=== PATIENT | male | born 1945 | race Hispanic/Latino ===

== ENCOUNTER 2017-12-06 12:09 | Inpatient (IN) | payer MEDICARE ==
[2017-12-06 12:29] VITALS: BMI 22.8
[2017-12-06] MEDS ORDERED: Vancomycin 1gm in NS 250ml 1 GM/250 ML BAG IVPB STA (12:34)
[2017-12-06] MEDS ORDERED: Sodium Chloride 0.9% 500 ML IV STA ×2 (12:34→13:49)
[2017-12-06] MEDS: Piperacillin/Tazobact 3.375 gm 100 ML IVPB STA ×2 (13:00→13:15)
[2017-12-06 13:21] LABS: BASO # 0.03 K/mm3 (0.0-2.0); BASO % 0.3 % (0.0-3.0); GRAN # 6.71 (1.4-6.5); GRAN % 65.9 % (50.0-68.0); LYMPH % 19.3 % (22.0-35.0); MEAN CELL VOLUME 88.9 fl (80.0-105.0); MEAN CORPUSCULAR HEMOGLOBIN 30.7 pg (25.0-35.0); MEAN CORPUSCULAR HGB CONC 34.5 g/dl (31.0-37.0); MEAN PLATELET VOLUME 9.5 fl (7.0-11.0); MONO # 1.5 (0.1-0.6); MONO % 14.5 % (1.0-6.0); RBC 4.24 10^6/uL (3.5-6.1); RED CELL DISTRIBUTION WIDTH 12.3 % (11.5-14.5); WHITE BLOOD COUNT 10.2 10^3/ul (4.5-11.0)
[2017-12-06 13:23] LABS: VENOUS BLOOD GAS BASE EXCESS -4.8 mmol/L (0.0-2.0); VENOUS BLOOD GAS PO2 41 mm/Hg (30-55)
--- NOTE | 2017-12-06 13:28 | ED PDOC ---
Arrival/HPI - General Chief Complaint: Lower Extremity Problem/Injury Time Seen by Provider: 12/06/17 12:33 Historian: Patient - History of Present Illness Narrative History of Present Illness (Text): 12/06/17 12:33 72 year old male, with past medical history of diabetes and has not seen a doctor in 15 years, presents to the Emergency department complaining of pain, swelling and erythema to the right 5th toe extending into the right foot since 3 days. Patient informs getting a pedicure done on Monday prior to onset on Monday. Patient informs visiting a hris administrator today for the mentioned symptoms, who referred patient to the Emergency department for evaluation and admission after having an X-ray of the foot performed. Patient denies any other somatic complaints. Patient denies any fever, chills, nausea, vomiting, diarrhea, abdominal pain, chest pain, shortness of breath, trauma or any other complaints. Patient denies regular monitoring of his blood sugar. Patient presents to the Emergency department for medical evaluation. Time/Duration: < week (3 days (monday)) Symptom Onset: Gradual Symptom Course: Unchanged Quality: Aching Activities at Onset: Light Context: Other (s/p pedicure) Past Medical History - Provider Review Nursing Documentation Reviewed: Yes - Infectious Disease Hx of Infectious Diseases: None - Endocrine/Metabolic Hx Diabetes Mellitus Type 2: Yes - Psychiatric Hx Substance Use: No - Anesthesia Hx Anesthesia: No Family/Social History - Physician Review Nursing Documentation Reviewed: Yes Family/Social History: No Known Family HX Smoking Status: Unknown If Ever Smoked Hx Alcohol Use: No Hx Substance Use: No Allergies/Home Meds Allergies/Adverse Reactions: Allergies No Known Allergies Allergy (Verified 12/06/17 12:29) Home Medications: Home Meds Medication Instructions Recorded Confirmed No Known Home Med 12/06/17 12/06/17 Review of Systems - Physician Review All systems were reviewed & negative as marked: Yes - Review of Systems Constitutional: Normal. absent: Fevers Eyes: Normal ENT: Normal Respiratory: Normal. absent: SOB Cardiovascular: Normal. absent: Chest Pain Gastrointestinal: Normal. absent: Abdominal Pain, Diarrhea, Nausea, Vomiting Genitourinary Male: Normal Musculoskeletal: Other (swelling and pain to right 5th toe extending into the right foot) Skin: Other (erythema to the right 5th toe extending to right 5th foot) Neurological: Normal Endocrine: Normal Hemo/Lymphatic: Normal Psychiatric: Normal Physical Exam Vital Signs Reviewed: Yes Vital Signs Temp Pulse Resp BP Pulse Ox 12/06/17 15:25 98 F 92 H 18 140/77 99 12/06/17 12:31 97.9 F 96 H 18 147/83 96 Temperature: Afebrile Blood Pressure: Normal Pulse: Tachycardic Respiratory Rate: Normal Appearance: Positive for: Well-Appearing, Non-Toxic, Comfortable Pain Distress: None Mental Status: Positive for: Alert and Oriented X 3 - Systems Exam Head: Present: Atraumatic, Normocephalic Conjunctiva: Present: Normal Mouth: Present: Moist Mucous Membranes Respiratory/Chest: Present: Clear to Auscultation, Good Air Exchange. No: Respiratory Distress, Accessory Muscle Use Cardiovascular: Present: Regular Rate and Rhythm, Normal S1, S2. No: Murmurs Abdomen: Present: Normal Bowel Sounds. No: Tenderness, Distention, Peritoneal Signs Lower Extremity: Present: NORMAL PULSES, Tenderness, Swelling, Erythema, Other ( blister noted to the distal plantar aspect of the right 5th toe; erythema and swelling surrounding the entire 5th toe; extends to the dorsal aspect of the foot with streaking erythema up the anterior lower leg). No: CALF TENDERNESS Neurological: Present: GCS=15, Speech Normal Skin: Present: Warm, Dry, Normal Color Psychiatric: Present: Alert, Oriented x 3 Medical Decision Making ED Course and Treatment: 12/06/17 12:33 72 year old diabetic male presents to the Emergency department for pain, swelling and erythema to the right 5th toe extending into the right foot. Plan: -- VBG -- Labs -- IV Fluids -- Blood Culture -- Urine Culture -- Urinalysis -- IV Abx -- admit Progress Notes: pt with hx of DM with fs; 337 pt had xray of foot at dr. Lizz strong office today. lactate; 1.5 cbc; wbc; 10.2 cmp; glucose 363 pt started on vancomycin and zosyn IV pt given 5units regular insulin sq pt given 1L NS cxr; wnl case discussed with podiatry resident dr. GROSSMAN; pt was seen and evaluated at bedside case discussed with dr. patel; accepts admission for toe infection, diabetes, r/ o osteomyelitis. all aspects of this case were discussed the attending of record. Impression: cellulitis, toe, DM admit to med/surg - Lab Interpretations Lab Results: 12/06/17 13:00 12/06/17 13:00 Lab Results 12/06/17 13:05: POC Glucose (mg/dL) 337 H 12/06/17 13:00: WBC 10.2, RBC 4.24, Hgb 13.0 L, Hct 37.7 L, MCV 88.9, MCH 30.7, MCHC 34.5, RDW 12.3, Plt Count 175, MPV 9.5, Gran % 65.9, Lymph % (Auto) 19.3 L , [place] % (Auto) 14.5 H, Eos % (Auto) 0.0 L, Baso % (Auto) 0.3, Gran # 6.71 H, Lymph # (Auto) 2.0, [place] # (Auto) 1.5 H, Eos # (Auto) 0.0, Baso # (Auto) 0.03 12/06/17 13:00: Sodium 135, Chloride 94 L, Potassium 4.7, Carbon Dioxide 19 L, Anion Gap 27 H, BUN 19, Creatinine 0.8, Est GFR ( Amer) > 60, Est GFR ( Non-Af Amer) > 60, Random Glucose 363 H*, Calcium 9.1, Total Bilirubin 0.6, AST 48, ALT 76 H, Alkaline Phosphatase 107, Total Protein 7.2, Albumin 4.2, Globulin 3.0, Albumin/Globulin Ratio 1.4 12/06/17 13:00: pO2 41, VBG pH 7.30 L, VBG pCO2 44.0, VBG HCO3 21.6, VBG Total CO2 23.0, VBG O2 Sat (Calc) 76.1 H, VBG Base Excess -4.8 L, VBG Potassium 4.8, Sodium 130.0 L, Chloride 96.0 L, Glucose 389 H, Lactate 1.5, FiO2 21.0, Venous Blood Potassium 4.8 - RAD Interpretation Radiology Orders: 12/06/17 12:34 CHEST PORTABLE [RAD] Stat - Medication Orders Current Medication Orders: Acetaminophen (Tylenol 325mg Tab) 650 mg PO Q6 PRN PRN Reason: Pain, moderate (4-7) Famotidine (Pepcid) 20 mg PO BID MURPHY Heparin Sodium (Porcine) (Heparin) 5,000 units SC Q8H MURPHY PRN Reason: Protocol Last Admin: 12/06/17 15:44 Dose: 5,000 units Subcutaneous Administrations Document 12/06/17 15:44 SZA (Rec: 12/06/17 15:45 SZA [id number]) Injection Site MAR Injection Site Left Arm Charges for Administration # of Subcutaneous Administrations 1 Sodium Chloride (Sodium Chloride 0.9%) 1,000 mls @ 100 mls/hr IV .Q10H MURPHY Last Admin: 12/06/17 15:49 Dose: 100 mls/hr eMAR Start Stop Document 12/06/17 15:49 SZA (Rec: 12/06/17 15:50 WILLIAM [id number]) Intravenous Solution Start Date 12/06/17 Start Time 15:20 Insulin Human Regular (Humulin R Med) 0 units SC ACHS MURPHY PRN Reason: Protocol Lorazepam (Ativan) 1 mg IVP Q4H PRN; Protocol PRN Reason: Symptoms of alcohol withdrawl Discontinued Medications Vancomycin HCl (Vancomycin 1gm) 1 gm in 250 mls @ 167 mls/hr IVPB STAT STA PRN Reason: Protocol Stop: 12/06/17 14:03 Last Admin: 12/06/17 13:39 Dose: 167 mls/hr eMAR Start Stop Document 12/06/17 13:39 SZA (Rec: 12/06/17 13:40 SZA [id number]) Intravenous Solution Start Date 12/06/17 Start Time 13:40 End Date 12/06/17 End time 15:10 Total Infusion Time 90 Piperacillin Sod/Tazobactam Sod (Zosyn 3.375 In Ns 100ml) 100 mls @ 200 mls/hr IVPB STAT STA PRN Reason: Protocol Stop: 12/06/17 13:03 Last Admin: 12/06/17 13:00 Dose: 200 mls/hr eMAR Start Stop Document 12/06/17 13:00 SZA (Rec: 12/06/17 13:16 SZA [id number]) Intravenous Solution Start Date 12/06/17 Start Time 13:00 End Date 12/06/17 Sodium Chloride (Sodium Chloride 0.9%) 500 mls @ 999 mls/hr IV .Q31M STA Stop: 12/06/17 13:04 Last Admin: 12/06/17 13:00 Dose: 999 mls/hr eMAR Start Stop Document 12/06/17 13:00 SZA (Rec: 12/06/17 13:33 SZA [id number]) Intravenous Solution Start Date 12/06/17 Start Time 13:00 End Date 12/06/17 End time 13:30 Total Infusion Time 30 Sodium Chloride (Sodium Chloride 0.9%) 500 mls @ 999 mls/hr IV .Q31M STA Stop: 12/06/17 14:19 Last Admin: 12/06/17 14:20 Dose: 999 mls/hr eMAR Start Stop Document 12/06/17 14:20 SZA (Rec: 12/06/17 14:41 SZA [id number]) Intravenous Solution Start Date 12/06/17 Start Time 14:20 End Date 12/06/17 End time 14:50 Total Infusion Time 30 Insulin Human Regular (Humulin R) 5 units SC STAT STA Stop: 12/06/17 13:57 Last Admin: 12/06/17 14:41 Dose: 5 units Subcutaneous Administrations Document 12/06/17 14:41 SZA (Rec: 12/06/17 14:41 SZA [id number]) Injection Site MAR Injection Site Left Arm Charges for Administration # of Subcutaneous Administrations 5 - Scribe Statement The provider has reviewed the documentation as recorded by the Scribe George Morales. All medical record entries made by the Scribe were at my direction and personally dictated by me. I have reviewed the chart and agree that the record accurately reflects my personal performance of the history, physical exam, medical decision making, and the department course for this patient. I have also personally directed, reviewed, and agree with the discharge instructions and disposition. Disposition/Present on Arrival - Present on Arrival Any Indicators Present on Arrival: No History of DVT/PE: No History of Uncontrolled Diabetes: No Urinary Catheter: No History of Decub. Ulcer: No History Surgical Site Infection Following: None - Disposition Have Diagnosis and Disposition been Completed?: Yes Diagnosis: Cellulitis, toe Disposition: HOSPITALIZED Disposition Time: 14:00 Patient Plan: Admission Patient Problems: Current Active Problems Problem Status Onset Cellulitis, toe Acute Condition: FAIR
[2017-12-06 13:35] LABS: ALB/GLOB RATIO 1.4 (1.1-1.8); ALBUMIN 4.2 g/dL (3.0-4.8); ALT/SGPT 76 U/L (7-56); AST/SGOT 48 U/L (17-59); BLOOD UREA NITROGEN 19 mg/dL (7-21); CALCIUM 9.1 mg/dL (8.4-10.5); GFR AFRICAN-AMERICAN > 60; GFR NON-AFRICAN AMERICAN > 60
--- NOTE | 2017-12-06 13:44 | RAD ---
HISTORY: foot infection COMPARISON: No prior. FINDINGS: LUNGS: No active pulmonary disease. PLEURA: No significant pleural effusion identified, no pneumothorax apparent. CARDIOVASCULAR: Normal. OSSEOUS STRUCTURES: No significant abnormalities. VISUALIZED UPPER ABDOMEN: Normal. OTHER FINDINGS: None. IMPRESSION: No active disease.
[2017-12-06] MEDS ORDERED: Insulin Regular 1 UNITS/0.01 ML ML SC STA (13:56)
--- NOTE | 2017-12-06 15:06 | CP.PCM.CON ---
History of Present Illness - History of Present Illness History of Present Illness: Podiatry Consult note- Dr. Crow 72 y.o male with PMHx of DM and psoriasis presents to the ED for right foot infection. Patient reports going to his java security engineer Dr. Romero today where he was told he had a foot infection and was sent to the ED. Patient reports that X- rays were taken in the office and showed no osteomyelitis. Patient reports that he went to [facility] to get a pedicure 5 days ago. 2 days ago he started noticing his foot getting more red and swollen with redness going up the leg. Patient reports he has mild pain, helped with pain medication given. Pain was worse prior to going to the ED. Patient denies nausea, fever, shortness of breath, chest pains, or chills. PMH: DM, psoriasis PSH: denies SH: former smoker- 20 years 1ppd, quit 25 years ago, reports drinking EtOH ~2-3 beers daily, denies illicit drug use ALL: NKDA MEDS: see MAR list Past Patient History - Infectious Disease Hx of Infectious Diseases: None - Past Social History Smoking Status: Unknown If Ever Smoked - ENDOCRINE/METABOLIC Hx Diabetes Mellitus Type 2: Yes - PSYCHIATRIC Hx Substance Use: No - SURGICAL HISTORY Hx Surgeries: No - ANESTHESIA Hx Anesthesia: No Meds Allergies/Adverse Reactions: Allergies Allergy/AdvReac Type Severity Reaction Status Date / Time No Known Allergies Allergy Verified 12/06/17 12:29 Physical Exam - Constitutional Appears: Well, Non-toxic, No Acute Distress - Extremities Exam Extremities exam: Negative for: calf tenderness Additional comments: VASC: DP and PT 1/4 bilaterally, CFT < 3 seconds x10 digits, temperature gradient WNL, edema noted to the right 5th digit ORTHO: pain with palpation to the 5th digit NEURO: gross intact and protective sensation intact DERM: right 5th digit blister noted to the plantar aspect with underlying dried hematoma noted, with mild fluctanace noted. Abrasion noted surrounding cuticles and skin surrounding nail plate, erythema >2cm and streaking noted up to dorsum of foot up to the anterior leg- marked with marking pen to track progression. No appreciable ulcerated noted to the digit, portal possibility closed up drained blister about 1 cc of sangious purulence Results - Vital Signs Recent Vital Signs: Last Vital Signs Temp 97.9 F 12/06/17 12:31 Pulse 96 H 12/06/17 12:31 Resp 18 12/06/17 12:31 BP 147/83 12/06/17 12:31 Pulse Ox 96 12/06/17 12:31 - Labs Result Diagrams: 12/06/17 13:00 12/06/17 13:00 Labs: Laboratory Results - last 24 hr 12/06/17 12/06/17 12/06/17 13:00 13:00 13:00 WBC 10.2 RBC 4.24 Hgb 13.0 L Hct 37.7 L MCV 88.9 MCH 30.7 MCHC 34.5 RDW 12.3 Plt Count 175 MPV 9.5 Gran % 65.9 Lymph % (Auto) 19.3 L [place] % (Auto) 14.5 H Eos % (Auto) 0.0 L Baso % (Auto) 0.3 Gran # 6.71 H Lymph # (Auto) 2.0 [place] # (Auto) 1.5 H Eos # (Auto) 0.0 Baso # (Auto) 0.03 pO2 41 VBG pH 7.30 L VBG pCO2 44.0 VBG HCO3 21.6 VBG Total CO2 23.0 VBG O2 Sat (Calc) 76.1 H VBG Base Excess -4.8 L VBG Potassium 4.8 Sodium 130.0 L 135 Chloride 96.0 L 94 L Glucose 389 H Lactate 1.5 FiO2 21.0 Potassium 4.7 Carbon Dioxide 19 L Anion Gap 27 H BUN 19 Creatinine 0.8 Est GFR ( Amer) > 60 Est GFR (Non-Af Amer) > 60 POC Glucose (mg/dL) Random Glucose 363 H* Calcium 9.1 Total Bilirubin 0.6 AST 48 ALT 76 H Alkaline Phosphatase 107 Total Protein 7.2 Albumin 4.2 Globulin 3.0 Albumin/Globulin Ratio 1.4 Venous Blood Potassium 4.8 12/06/17 13:05 WBC RBC Hgb Hct MCV MCH MCHC RDW Plt Count MPV Gran % Lymph % (Auto) [place] % (Auto) Eos % (Auto) Baso % (Auto) Gran # Lymph # (Auto) [place] # (Auto) Eos # (Auto) Baso # (Auto) pO2 VBG pH VBG pCO2 VBG HCO3 VBG Total CO2 VBG O2 Sat (Calc) VBG Base Excess VBG Potassium Sodium Chloride Glucose Lactate FiO2 Potassium Carbon Dioxide Anion Gap BUN Creatinine Est GFR ( Amer) Est GFR (Non-Af Amer) POC Glucose (mg/dL) 337 H Random Glucose Calcium Total Bilirubin AST ALT Alkaline Phosphatase Total Protein Albumin Globulin Albumin/Globulin Ratio Venous Blood Potassium Assessment & Plan - Assessment and Plan (Free Text) Assessment: 72 y.o male with PMHx of DM and psoriasis with right foot 5th digit blister with cellulitis Plan: Patient examined and evaluated Discussed plan in detail with attending Dr. Crow Charts, labs reviewed ,absent leukocytosis X-rays ordered of right foot - no OM, no gas Right 5th digit prep with betadine, blister drained with 18 gauge needle without incident ~1 cc of sangious purulence drainage expressed Patient tolerated the procedure well without incident Wound culture taken of right foot Dressed with betadine and DSD Continue with abx Ordered ABIs/PVRs for baseline Will continue to follow patient while on floors Thank you for allowing us to participate in patient's care
--- NOTE | 2017-12-06 15:29 | CP.PCM.HP ---
<Camille Nassar - Last Filed: 12/06/17 15:31> History of Present Illness - History of Present Illness History of Present Illness: IM H & P for Dr. Carolyn Nassar, PGY-1 Pt S & E at bedside 1505 73M w/PMH sig for DM, psoriasis admitted for Right foot pain/swelling/erythema x 3 days. Pt reports he got a pedicure 5 days prior to evaluation, woke up 3 days ago with sudden pain/swelling/erythema. Pain is intermittent, aggravated by pressure/walking/touch, severe, non radiating. Pt went to PMD who got outpatient work up for osteomyelitis- x-rays are self-reported to be negative. Admits to numbness/tingling of right foot. Denies N & V, F & C, CP, SOB, changes to bowel or bladder habits, other complaints. PMH: DM, psoriasis PSH: Denies All: NKDA SH: Admits to 2-3 beers daily x 60yrs, admits to hx of tobacco use, quit 25 yrs ago, 1ppd x 20 yrs, denies illicit drug use Outpt pods: [place] Present on Admission - Present on Admission Any Indicators Present on Admission: Yes History of DVT/PE: No History of Uncontrolled Diabetes: Yes Urinary Catheter: No Decubitus Ulcer Present: No Review of Systems - Review of Systems All systems: reviewed and no additional remarkable complaints except - Constitutional Constitutional: absent: Chills, Fever - EENT Eyes: absent: Blurred Vision, Change in Vision Ears: absent: Dizziness Nose/Mouth/Throat: absent: Sore Throat - Cardiovascular Cardiovascular: absent: Chest Pain, Leg Edema, Palpitations - Respiratory Respiratory: absent: Cough - Gastrointestinal Gastrointestinal: absent: Abdominal Pain, Constipation, Diarrhea, Nausea, Vomiting - Genitourinary Genitourinary: absent: Change in Urinary Stream, Dysuria - Musculoskeletal Musculoskeletal: Numbness (right foot), Tingling (right foot) - Integumentary Integumentary: Skin Pain (right foot), Wounds (right foot) - Neurological Neurological: Weakness (right foot) - Psychiatric Psychiatric: absent: Change in Appetite Past Patient History - Infectious Disease Hx of Infectious Diseases: None - Past Social History Smoking Status: Unknown If Ever Smoked - ENDOCRINE/METABOLIC Hx Diabetes Mellitus Type 2: Yes - PSYCHIATRIC Hx Substance Use: No - SURGICAL HISTORY Hx Surgeries: No - ANESTHESIA Hx Anesthesia: No Meds Allergies/Adverse Reactions: Allergies Allergy/AdvReac Type Severity Reaction Status Date / Time No Known Allergies Allergy Verified 12/06/17 12:29 Physical Exam - Constitutional Appears: Non-toxic, No Acute Distress - Head Exam Head Exam: ATRAUMATIC, NORMAL INSPECTION, NORMOCEPHALIC - Eye Exam Eye Exam: EOMI, Normal appearance - ENT Exam ENT Exam: Mucous Membranes Moist, Normal Exam - Neck Exam Neck exam: Positive for: Full Rom, Normal Inspection - Respiratory Exam Respiratory Exam: Clear to Auscultation Bilateral, NORMAL BREATHING PATTERN - Cardiovascular Exam Cardiovascular Exam: REGULAR RHYTHM, +S1, +S2 - GI/Abdominal Exam GI & Abdominal Exam: Normal Bowel Sounds, Soft. absent: Tenderness - Extremities Exam Extremities exam: Positive for: tenderness. Negative for: normal inspection Additional comments: right foot with diffuse erythema streaking up the anterior aspect of the leg, 5th digit of right foot with swelling, erythema, fluctuance on plantar aspect of toe, small wound noted at distal aspect of toe next to nail bed - Neurological Exam Neurological exam: Alert, CN II-XII Intact, Oriented x3 - Psychiatric Exam Psychiatric exam: Normal Affect, Normal Mood - Skin Skin Exam: Dry, Erythema (right foot), Intact Additional comments: please see extremity exam for right foot findings Results - Vital Signs Recent Vital Signs: Last Vital Signs Temp 97.9 F 12/06/17 12:31 Pulse 96 H 12/06/17 12:31 Resp 18 12/06/17 12:31 BP 147/83 12/06/17 12:31 Pulse Ox 96 12/06/17 12:31 - Labs Result Diagrams: 12/06/17 13:00 12/06/17 13:00 Assessment & Plan - Assessment and Plan (Free Text) Assessment: 72M w/PMH sig for DM, psoriasis admitted for swelling/possible abscess of 5th digit on right foot & cellulitis of right foot Plan: Right 5th digit pain, swelling/possible abscess of 5th digit of right foot & cellulitis of right foot Monitor erythema Vanc Zosyn Tylenol PRN NS@100 FU blood cx FU urine cx ID consulted Podiatry consulted DM Accuchecks ISS Diabetic diet Fu A1c Monitor ETOH abuse FU Etoh level FU UDS Ativan PRN CIWA protocol Seizure precautions Aspiration precautions GI/DVT ppx Pepcid Heparin Ambulate OOBTC Dispo Admit to med-surg VS Q6H DW attending Maday, PGY-1 - Date & Time Date: 12/06/17 Time: 15:30 Decision To Admit - Pt Status Changed To: Hospital Disposition Of: Inpatient Admission - Admit Certification Admit to Inpatient:: After my assessment, the patient will require hospitalization for at least two midnights. This is because of the severity of symptoms shown, intensity of services needed, and/or the medical risk in this patient being treated as an outpatient. - . Bed Request Type: Med/Surg Admitting Physician: Darron Hill <Darron Hill - Last Filed: 12/06/17 15:50> Results - Vital Signs Recent Vital Signs: Last Vital Signs Temp 98 F 12/06/17 15:25 Pulse 92 H 12/06/17 15:25 Resp 18 12/06/17 15:25 BP 140/77 12/06/17 15:25 Pulse Ox 99 12/06/17 15:25 - Labs Result Diagrams: 12/06/17 13:00 12/06/17 13:00 Attending/Attestation - Attestation I have personally seen and examined this patient.: Yes I have fully participated in the care of the patient.: Yes I have reviewed all pertinent clinical information: Yes Notes (Text): 12/06/17 15:44 72 year old male with past medical history of diabetes who presents with right foot cellulitis and possible 5th digit abscess. Continue with iv antibiotics. ID and podiatry consults are requested. Will start on insulin ss and obtain A1c for diabetes. He admits to medication noncompliance. He admits to drinking few beers daily. Will start ativan prn in case of withdrawal symptoms which he currently is not exhibiting. Darron Hill MD Hospitalist.
[2017-12-06] MEDS: Sodium Chloride 0.9% 1,000 ML IV SCH (15:49)
[2017-12-06 16:14] LABS: PH,URINE 5.5 (4.7-8.0); URINE BILIRUBIN NEGATIVE (NEGATIVE); URINE BLOOD NEGATIVE (NEGATIVE); URINE GLUCOSE (UA) >=1000 mg/dL (NEGATIVE); URINE LEUKOCYTE ESTERASE NEGATIVE Leu/uL (NEGATIVE); URINE PROTEIN NEGATIVE mg/dL (<30 mg/dL); URINE UROBILINOGEN 0.2 E.U./dL (<1 E.U./dL)
[2017-12-06 16:19] LABS: BARBITURATES, UR NEGATIVE (NEGATIVE); BENZODIAZEPINES, UR NEGATIVE (NEGATIVE); OPIATES, UR NEGATIVE (NEGATIVE); PHENCYCLIDINE, UR NEGATIVE (NEGATIVE)
[2017-12-06 16:20] LABS: URINE APPEARANCE CLEAR (CLEAR); URINE COLOR YELLOW (YELLOW)
[2017-12-06] MEDS: Insulin Reg-MEDIUM-Coverage SC SCH ×2 (17:10→22:01)
--- NOTE | 2017-12-06 17:12 | RAD ---
PROCEDURE: Right Foot Radiographs. HISTORY: right foot infection COMPARISON: None. FINDINGS: BONES: Normal. No fracture. JOINTS: Normal. SOFT TISSUES: Normal. OTHER FINDINGS: None. IMPRESSION: Normal right foot radiographs.
[2017-12-06] MEDS ORDERED: Pneumococcal 23-Valent Vaccine IM ONE (17:45)
[2017-12-07 07:06] LABS: BASO # 0.04 K/mm3 (0.0-2.0); BASO % 0.6 % (0.0-3.0); EOS # 0.1 (0.0-0.7); EOS % 1.7 % (1.5-5.0); GRAN # 3.54 (1.4-6.5); GRAN % 50.3 % (50.0-68.0); HEMOGLOBIN 12.2 g/dL (14.0-18.0); LYMPH # 2.5 (1.2-3.4); MEAN CELL VOLUME 88.5 fl (80.0-105.0); MEAN CORPUSCULAR HEMOGLOBIN 29.8 pg (25.0-35.0); MEAN CORPUSCULAR HGB CONC 33.6 g/dl (31.0-37.0); MEAN PLATELET VOLUME 9.3 fl (7.0-11.0); MONO # 0.9 (0.1-0.6); MONO % 12.4 % (1.0-6.0); RBC 4.1 10^6/uL (3.5-6.1); RED CELL DISTRIBUTION WIDTH 12.4 % (11.5-14.5)
[2017-12-07 07:15] LABS: ALB/GLOB RATIO 1.1 (1.1-1.8); ALBUMIN 3.3 g/dL (3.0-4.8); ALT/SGPT 69 U/L (7-56); AST/SGOT 34 U/L (17-59); BLOOD UREA NITROGEN 13 mg/dL (7-21); CALCIUM 8.3 mg/dL (8.4-10.5); GFR AFRICAN-AMERICAN > 60; GFR NON-AFRICAN AMERICAN > 60
[2017-12-07] MEDS ORDERED: Vancomycin 1gm in NS 250ml 1 GM/250 ML BAG IVPB SCH (07:30)
[2017-12-07] MEDS: Insulin Reg-MEDIUM-Coverage SC SCH ×4 (08:59→22:42)
[2017-12-07] MEDS: Vancomycin 1gm in NS 250ml 1 GM/250 ML BAG IVPB SCH ×2 (10:14→21:34)
[2017-12-07] MEDS: Piperacillin/Tazobact 3.375 gm 100 ML IVPB SCH ×4 (11:04→23:33)
--- NOTE | 2017-12-07 11:46 | CP.PCM.PN ---
<Nathan Biggs - Last Filed: 12/07/17 12:36> Subjective - Date & Time of Evaluation Date of Evaluation: 12/07/17 Time of Evaluation: 07:00 - Subjective Subjective: PGY1 Medicine Note for Dr. Hill Patient seen and examined at bedside this morning. No acute events overnight. Patient reports that he is feeling much better and is no longer in any pain with his foot. Reports decreased swelling and erythema. Denies fevers, chills, nausea, vomiting, diarrhea, constipation, chest pain, shortness of breath, palpitations, abdominal pain, headaches, numbness or tingling. Objective - Vital Signs/Intake and Output Vital Signs (last 24 hours): Temp Pulse Resp BP Pulse Ox 98 F 78 20 155/93 H 95 12/07/17 06:00 12/07/17 06:00 12/07/17 06:00 12/07/17 06:00 12/07/17 06:00 Intake and Output: 12/07/17 12/07/17 06:59 18:59 Intake Total 120 Balance 120 - Medications Medications: Current Medications Acetaminophen (Tylenol 325mg Tab) 650 mg PO Q6 PRN PRN Reason: Pain, moderate (4-7) Famotidine (Pepcid) 20 mg PO BID [facility] Last Admin: 12/07/17 10:14 Dose: 20 mg Heparin Sodium (Porcine) (Heparin) 5,000 units SC Q8H [facility] PRN Reason: Protocol Last Admin: 12/07/17 10:13 Dose: 5,000 units Sodium Chloride (Sodium Chloride 0.9%) 1,000 mls @ 100 mls/hr IV .Q10H [facility] Last Admin: 12/06/17 15:49 Dose: 100 mls/hr Piperacillin Sod/Tazobactam Sod (Zosyn 3.375 In Ns 100ml) 100 mls @ 200 mls/hr IVPB Q6 [facility] PRN Reason: Protocol Stop: 12/07/17 18:29 Last Admin: 12/07/17 11:04 Dose: 200 mls/hr Vancomycin HCl (Vancomycin 1gm) 1 gm in 250 mls @ 167 mls/hr IVPB Q12H [facility] PRN Reason: Protocol Last Admin: 12/07/17 10:14 Dose: 167 mls/hr Insulin Detemir (Levemir) 5 unit SC BID [facility] Insulin Human Regular (Humulin R Med) 0 units SC ACHS [facility] PRN Reason: Protocol Last Admin: 12/07/17 08:59 Dose: 1 units Lisinopril (Zestril) 5 mg PO DAILY [facility] Lorazepam (Ativan) 1 mg IVP Q4H PRN; Protocol PRN Reason: Symptoms of alcohol withdrawl - Labs Labs: 12/07/17 06:20 12/07/17 06:20 - Constitutional Appears: Non-toxic, No Acute Distress - Head Exam Head Exam: ATRAUMATIC, NORMOCEPHALIC - Eye Exam Eye Exam: EOMI, Normal appearance - ENT Exam ENT Exam: Mucous Membranes Moist - Neck Exam Neck Exam: absent: Lymphadenopathy - Respiratory Exam Respiratory Exam: Clear to Ausculation Bilateral, NORMAL BREATHING PATTERN. absent: Accessory Muscle Use, Rales, Rhonchi, Wheezes, Respiratory Distress - Cardiovascular Exam Cardiovascular Exam: REGULAR RHYTHM, +S1, +S2 - GI/Abdominal Exam GI & Abdominal Exam: Soft, Normal Bowel Sounds. absent: Distended, Firm, Guarding, Rigid, Tenderness - Extremities Exam Extremities Exam: absent: Calf Tenderness, Tenderness Additional comments: Dressing in place over right foot, covering 5th digit. Erythema boarder markings of show decreased erythema, no longer any erythema on mcclendon. Right foot is swollen with erythma but patient denies tenderness. - Neurological Exam Neurological Exam: Alert, Awake, CN II-XII Intact, Oriented x3 - Psychiatric Exam Psychiatric exam: Normal Affect, Normal Mood - Skin Skin Exam: Dry, Erythema (right foot), Intact, Warm Additional comments: see extremity exam - right foot. Assessment and Plan - Assessment and Plan (Free Text) Assessment: 72 year old male with a past medical history of DM and psoriasis admitted for swelling/possible abscess of 5th digit on right foot & cellulitis of right foot Plan: Right Foot 5th digit blister with cellulitis Podiatry consulted, Dr. Crow - help appreciated ID consulted, Dr. Quijano - help appreciated s/p I&D on 12/06 - per podiatry note, ~1 cc of sangious purulence drainage expressed Erythema boarder improving. Blood Culture - f/u Wound Culture - f/u Urine Culture - f/u Dressings per Podiatry Vanco 1gm IVPB q12h Zosyn 3.375mg IVPB q6h Tylenol 650mg PO q6h prn NS @100mL/hr Diabetes Hgb A1c 12.6 Blood Sugars consistently 200-300 Started on Levemir 5units SC BID ISS - mod accuchecks Travel Guide referral Patient educated on diabetes and meaning of Hgb A1c/Blood Sugar levels. Had discussion with patient about wishes to start patient on long acting insulin. Patient is in agreement to start medication and continue medication when he is discharged home. Hypertension Started on Lisinopril 5mg PO daily Continue to monitor Alcohol Abuse Upon admission alc level <10 UDS negative Ativan 1mg IVP q4h prn CIWA protocol Seizure precautions Aspiration precautions Prophylactic Care Pepcid 20mg PO BID Heparin 5,000 units SC q8h Case discussed with Dr. Sergio Evans Dian PGY1 <Darron Hill - Last Filed: 12/07/17 12:47> Objective - Vital Signs/Intake and Output Vital Signs (last 24 hours): Temp Pulse Resp BP Pulse Ox 98 F 78 20 156/92 H 95 12/07/17 06:00 12/07/17 06:00 12/07/17 06:00 12/07/17 12:13 12/07/17 06:00 Intake and Output: 12/07/17 12/07/17 06:59 18:59 Intake Total 120 Balance 120 - Medications Medications: Current Medications Acetaminophen (Tylenol 325mg Tab) 650 mg PO Q6 PRN PRN Reason: Pain, moderate (4-7) Famotidine (Pepcid) 20 mg PO BID [facility] Last Admin: 12/07/17 10:14 Dose: 20 mg Heparin Sodium (Porcine) (Heparin) 5,000 units SC Q8H [facility] PRN Reason: Protocol Last Admin: 12/07/17 10:13 Dose: 5,000 units Sodium Chloride (Sodium Chloride 0.9%) 1,000 mls @ 100 mls/hr IV .Q10H [facility] Last Admin: 12/06/17 15:49 Dose: 100 mls/hr Piperacillin Sod/Tazobactam Sod (Zosyn 3.375 In Ns 100ml) 100 mls @ 200 mls/hr IVPB Q6 [facility] PRN Reason: Protocol Stop: 12/07/17 18:29 Last Admin: 12/07/17 11:04 Dose: 200 mls/hr Vancomycin HCl (Vancomycin 1gm) 1 gm in 250 mls @ 167 mls/hr IVPB Q12H [facility] PRN Reason: Protocol Last Admin: 12/07/17 10:14 Dose: 167 mls/hr Insulin Detemir (Levemir) 5 unit SC BID [facility] Insulin Human Regular (Humulin R Med) 0 units SC ACHS [facility] PRN Reason: Protocol Last Admin: 12/07/17 12:11 Dose: 3 units Lisinopril (Zestril) 5 mg PO DAILY [facility] Last Admin: 12/07/17 12:13 Dose: 5 mg Lorazepam (Ativan) 1 mg IVP Q4H PRN; Protocol PRN Reason: Symptoms of alcohol withdrawl - Labs Labs: 12/07/17 06:20 12/07/17 06:20 Attending/Attestation - Attestation I have personally seen and examined this patient.: Yes I have fully participated in the care of the patient.: Yes I have reviewed all pertinent clinical information, including history, physical exam and plan: Yes Notes (Text): 12/07/17 12:44 72 year old male with past medical history of diabetes who presents with right foot cellulitis and 5th digit abscess. He was seen by podiatry and is s/p I&D at bedside. Continue with antibiotics as per ID while awaiting wound culture. Xray was negative. LE doppler was done today with pending report. A1c in 12.6. He is currently on insulin ss and will be started on levemir. Patient is agreeable. He was counselled on lifestyle and diet modifications and medication compliance. Diabetic education referral is ordered. He is started on lisinopril for hypertension. He was counselled on alcohol abstinence. Darron Hill MD Hospitalist.
--- NOTE | 2017-12-07 13:18 | US ---
PROCEDURE: Lower extremity BORA exam HISTORY: Peripheral vascular disease with pain and ulceration. Diabetes. Previous smoker. PHYSICIAN(S): Charles Lehman MD. FINDINGS: The resting BORA's are normal: right, 1.48and left, 1.32. The brachial systolic pressures are symmetric. The high thigh pressures and waveforms are relatively normal. The calf PVR waveforms augment normally. No significant gradients are noted across the thighs. The ankle and metatarsal waveforms are relatively normal and symmetric. No significant pressure gradients are noted across the lower legs. IMPRESSION: 1. Relatively normal BORA and PVR examination at rest.
[2017-12-07] MEDS: Insulin Detemir 100 units/ml Vial (Levemir) SC SCH (17:10)
[2017-12-07] MEDS: Sodium Chloride 0.9% 1,000 ML IV SCH (17:18)
--- NOTE | 2017-12-07 19:14 | CP.PCM.PN ---
Subjective - Date & Time of Evaluation Date of Evaluation: 12/07/17 Time of Evaluation: 19:14 - Subjective Subjective: 72 y/o M with PMH of DM and psoriasis with right 5th toe necrotic ulceration with cellulitis. Patient relates improvement in pain. Denies any F/C/N/V/SOB/ CP. Objective - Vital Signs/Intake and Output Vital Signs (last 24 hours): Temp Pulse Resp BP Pulse Ox 97.5 F L 86 20 143/79 96 12/07/17 14:00 12/07/17 14:00 12/07/17 14:00 12/07/17 14:00 12/07/17 14:00 Intake and Output: 12/07/17 12/07/17 06:59 18:59 Intake Total 120 960 Balance 120 960 - Medications Medications: Current Medications Acetaminophen (Tylenol 325mg Tab) 650 mg PO Q6 PRN PRN Reason: Pain, moderate (4-7) Famotidine (Pepcid) 20 mg PO BID [facility] Last Admin: 12/07/17 17:12 Dose: 20 mg Heparin Sodium (Porcine) (Heparin) 5,000 units SC Q8H [facility] PRN Reason: Protocol Last Admin: 12/07/17 16:27 Dose: Not Given Sodium Chloride (Sodium Chloride 0.9%) 1,000 mls @ 100 mls/hr IV .Q10H [facility] Last Admin: 12/07/17 17:18 Dose: 100 mls/hr Vancomycin HCl (Vancomycin 1gm) 1 gm in 250 mls @ 167 mls/hr IVPB Q12H [facility] PRN Reason: Protocol Last Admin: 12/07/17 10:14 Dose: 167 mls/hr Piperacillin Sod/Tazobactam Sod (Zosyn 3.375 In Ns 100ml) 100 mls @ 200 mls/hr IVPB Q6 [facility] PRN Reason: Protocol Stop: 12/16/17 18:01 Insulin Detemir (Levemir) 5 unit SC BID [facility] Last Admin: 12/07/17 17:10 Dose: 5 unit Insulin Human Regular (Humulin R Med) 0 units SC ACHS [facility] PRN Reason: Protocol Last Admin: 12/07/17 17:11 Dose: 3 units Lisinopril (Zestril) 5 mg PO DAILY [facility] Last Admin: 05/24/18 12:13 Dose: 5 mg Lorazepam (Ativan) 1 mg IVP Q4H PRN; Protocol PRN Reason: Symptoms of alcohol withdrawl - Labs Labs: 12/07/17 06:20 12/07/17 06:20 - Constitutional Appears: No Acute Distress - Additional Findings Additional findings: Lower extremity exam: Palpable pedal pulses 2/4 DP/PT. right 5th toe distal plantar wound with fibronecrosis, no exposed bone, +edema, +malodor, erythema extending up to the ankle. +edema up to the ankle. AROM to all toes. tenderness upon palpation. Assessment and Plan - Assessment and Plan (Free Text) Assessment: Right 5th toe necrotic ulceration with cellulitis Uncontrolled DM Plan: Pt examined and evaluated. after obtaining consent, the necrotic wound was sharply debrided with iris scissors and pick ups down to subcutaneous tissue removing fibronecrotic tissue. wound measures approx 1cm in diameterx 0.3 in depth. wound was copiously irrigated with saline and dress with wet-to dry dressing. no pururlence expressed today. for now we will continue conservative care with abx and wound care. Will order dakin's solution, will continue wet to dry dressing changes BID reviewed arterial non-invasive studies. normal ABIs/PVRs. Continue vanc/zosyn. awaiting wound culture results. appreciate ID recs will continue to follow thank you for the courtesy of this consultation.
--- NOTE | 2017-12-08 04:58 | CON ---
DATE: 12/07/2017 LOCATION: Patient is in bed, room 567, bed 2. CHIEF COMPLAINT: Right foot infection times several days. HISTORY OF PRESENT ILLNESS: This is a 72-year-old male with diabetes mellitus, poorly compliant to the medications, not seen any doctors for many many years and who has been complaining of right foot infection, pain, and swelling for several days and he got a pedicure in about a week became heavily swelling erythema. He had an outpatient workup that is consistent with osteomyelitis. Patient has low-grade fevers. No nausea, no vomiting, no chest pain, no abdominal pain, no diarrhea. PAST MEDICAL HISTORY: Significant for psoriasis and diabetes mellitus. PAST SURGICAL HISTORY: Patient denies any past surgical history. ALLERGIES: PATIENT HAS NO KNOWN ALLERGIES. SOCIAL HISTORY: He is a smoker. He is an alcohol abuser. MEDICATIONS AT HOME: He is not taking any medications at home. PHYSICAL EXAMINATION: VITAL SIGNS: Temperature 98, heart rate 96, respiratory rate of 20, blood pressure 154/60, 95% saturation. HEENT: Unremarkable. NECK: Supple. LUNGS: Decreased breath sounds. HEART: Normal S1, S2. ABDOMEN: Soft, nontender. No rebound or guarding. EXTREMITIES: Examination of foot reveals the erythematous right foot with significant gangrenous changes in the right fifth toe with foul odor. LABORATORY DATA: White count of 10,000, hemoglobin of 13. Chemistries are reviewed; creatinine of 0.6 and elevated blood sugar. Patient does have LFT elevations in chemistries and urinalysis is unremarkable. Toxicology is negative. Microbiology reveals blood cultures are negative. Patient had an ultrasound of the extremities, relatively normal BORA and PVR. Patient also had an chest x-ray, reveals no active disease. ASSESSMENT AND PLAN: A 72-year-old male with diabetes mellitus, psoriasis, with right foot cellulitis and fifth toe gangrene. We will treat the patient with vancomycin and Zosyn. Probable osteomyelitis with extensive infection in his right foot. Should have imaging, MRI, Vascular workup, Podiatry workup, sedimentation rate, C-reactive protein, and hepatitis profile. We will follow with you. Shelton Bennett MD
[2017-12-08] MEDS: Piperacillin/Tazobact 3.375 gm 100 ML IVPB SCH ×4 (05:11→23:16)
[2017-12-08 07:27] LABS: ALB/GLOB RATIO 1.1 (1.1-1.8); ALBUMIN 3.4 g/dL (3.0-4.8); ALT/SGPT 77 U/L (7-56); AST/SGOT 54 U/L (17-59); BLOOD UREA NITROGEN 9 mg/dL (7-21); CALCIUM 8.7 mg/dL (8.4-10.5); GFR AFRICAN-AMERICAN > 60; GFR NON-AFRICAN AMERICAN > 60
[2017-12-08 07:49] LABS: BASO # 0.03 K/mm3 (0.0-2.0); BASO % 0.5 % (0.0-3.0); EOS # 0.2 (0.0-0.7); EOS % 3.4 % (1.5-5.0); GRAN # 2.8 (1.4-6.5); GRAN % 44.8 % (50.0-68.0); HEMOGLOBIN 12.9 g/dL (14.0-18.0); LYMPH # 2.1 (1.2-3.4); LYMPH % 33.7 % (22.0-35.0); MEAN CELL VOLUME 87.7 fl (80.0-105.0); MEAN CORPUSCULAR HEMOGLOBIN 29.9 pg (25.0-35.0); MEAN CORPUSCULAR HGB CONC 34.1 g/dl (31.0-37.0); MEAN PLATELET VOLUME 9.6 fl (7.0-11.0); MONO # 1.1 (0.1-0.6); MONO % 17.6 % (1.0-6.0); RBC 4.31 10^6/uL (3.5-6.1); RED CELL DISTRIBUTION WIDTH 12.2 % (11.5-14.5); WHITE BLOOD COUNT 6.2 10^3/ul (4.5-11.0)
[2017-12-08] MEDS: Insulin Reg-MEDIUM-Coverage SC SCH ×4 (08:09→21:38)
[2017-12-08] MEDS: Insulin Detemir 100 units/ml Vial (Levemir) SC SCH ×2 (10:08→17:25)
[2017-12-08] MEDS: Vancomycin 1gm in NS 250ml 1 GM/250 ML BAG IVPB SCH ×2 (10:10→21:39)
[2017-12-08 12:42] LABS: HEPATITIS B SURFACE AG Negative (NEGATIVE)
[2017-12-08] MEDS: Piperacillin/Tazobact 3.375 gm 100 ML IVPB STA (12:45)
[2017-12-08 12:48] LABS: HEPATITIS A IGM NEGATIVE (NEGATIVE); HEPATITIS B CORE AB NEGATIVE (NEGATIVE)
[2017-12-08] MEDS: Dakin's Topical 0.25%-Half Strength (480 ml) TOP SCH (12:58)
[2017-12-08 13:00] LABS: HEPATITIS C ANTIBODY NEGATIVE (NEGATIVE)
--- NOTE | 2017-12-08 19:45 | CP.PCM.PN ---
Subjective - Date & Time of Evaluation Date of Evaluation: 12/08/17 Time of Evaluation: 11:25 - Subjective Subjective: Comfortable in bed, no increased pain in the right foot, no fevers, not in distress. Objective - Vital Signs/Intake and Output Vital Signs (last 24 hours): Temp Pulse Resp BP Pulse Ox 98.6 F 80 97 H 146/91 H 94 L 12/08/17 14:00 12/08/17 14:00 12/08/17 14:00 12/08/17 14:00 12/08/17 06:00 - Medications Medications: Current Medications Acetaminophen (Tylenol 325mg Tab) 650 mg PO Q6 PRN PRN Reason: Pain, moderate (4-7) Famotidine (Pepcid) 20 mg PO BID [facility] Last Admin: 12/08/17 17:25 Dose: 20 mg Heparin Sodium (Porcine) (Heparin) 5,000 units SC Q8H [facility] PRN Reason: Protocol Last Admin: 12/08/17 15:26 Dose: Not Given Vancomycin HCl (Vancomycin 1gm) 1 gm in 250 mls @ 167 mls/hr IVPB Q12H [facility] PRN Reason: Protocol Last Admin: 12/08/17 10:10 Dose: 167 mls/hr Piperacillin Sod/Tazobactam Sod (Zosyn 3.375 In Ns 100ml) 100 mls @ 200 mls/hr IVPB Q6 [facility] PRN Reason: Protocol Stop: 12/16/17 18:01 Last Admin: 12/08/17 17:26 Dose: 200 mls/hr Insulin Detemir (Levemir) 5 unit SC BID [facility] [place] Last Admin: 12/08/17 17:25 Dose: 5 unit Insulin Human Regular (Humulin R Med) 0 units SC ACHS [facility] PRN Reason: Protocol Last Admin: 12/08/17 16:23 Dose: 5 units Lisinopril (Zestril) 5 mg PO DAILY [facility] Last Admin: 12/08/17 10:09 Dose: 5 mg Lorazepam (Ativan) 1 mg IVP Q4H PRN; Protocol PRN Reason: Symptoms of alcohol withdrawl Sodium Hypochlorite (Dakins Solution 0.25%) 0 ml TOP DAILY [facility] Last Admin: 12/08/17 12:58 Dose: 1 appl - Labs Labs: 12/08/17 07:15 12/08/17 07:00 - Constitutional Appears: Non-toxic - Head Exam Head Exam: NORMAL INSPECTION - Neck Exam Neck Exam: absent: Meningismus - Respiratory Exam Respiratory Exam: Decreased Breath Sounds - Cardiovascular Exam Cardiovascular Exam: +S1, +S2 - GI/Abdominal Exam GI & Abdominal Exam: Soft. absent: Tenderness - Extremities Exam Additional comments: right foot with dressings in place Assessment and Plan - Assessment and Plan (Free Text) Plan: Assessment right foot cellulitis with 5th toe gangrene R/O osteomyelitis DM psoriasis Plan Continue the patient on Vancomycin and Zosyn and follow up final wound cx results (so far showing gram positive cocci but cultures are not finalized yet) will undergo MRI of right foot to rule out osteomyelitis and will follow up results will monitor clinically
--- NOTE | 2017-12-08 20:16 | CP.PCM.PN ---
<Nathan Biggs - Last Filed: 12/08/17 23:18> Subjective - Date & Time of Evaluation Date of Evaluation: 12/08/17 Time of Evaluation: 07:50 - Subjective Subjective: PGY1 Medicine Note for Dr. Hill Patient seen and examined at bedside this morning. No acute events overnight. Patient reports improving erythema of right foot. Denies any pain. Denies fevers , chills, nausea, vomiting, diarrhea, constipation, chest pain, shortness of breath, palpitations, abdominal pain, headaches, numbness or tingling. Objective - Vital Signs/Intake and Output Vital Signs (last 24 hours): Temp Pulse Resp BP Pulse Ox 98.6 F 80 97 H 146/91 H 94 L 12/08/17 14:00 12/08/17 14:00 12/08/17 14:00 12/08/17 14:00 12/08/17 06:00 - Medications Medications: Current Medications Acetaminophen (Tylenol 325mg Tab) 650 mg PO Q6 PRN PRN Reason: Pain, moderate (4-7) Famotidine (Pepcid) 20 mg PO BID [facility] Last Admin: 12/08/17 17:25 Dose: 20 mg Heparin Sodium (Porcine) (Heparin) 5,000 units SC Q8H [facility] PRN Reason: Protocol Last Admin: 12/08/17 15:26 Dose: Not Given Vancomycin HCl (Vancomycin 1gm) 1 gm in 250 mls @ 167 mls/hr IVPB Q12H [facility] PRN Reason: Protocol Last Admin: 12/08/17 10:10 Dose: 167 mls/hr Piperacillin Sod/Tazobactam Sod (Zosyn 3.375 In Ns 100ml) 100 mls @ 200 mls/hr IVPB Q6 [facility] PRN Reason: Protocol Stop: 12/16/17 18:01 Last Admin: 12/08/17 17:26 Dose: 200 mls/hr Insulin Detemir (Levemir) 5 unit SC BID [facility] Last Admin: 12/08/17 17:25 Dose: 5 unit Insulin Human Regular (Humulin R Med) 0 units SC ACHS [facility] PRN Reason: Protocol Last Admin: 12/08/17 16:23 Dose: 5 units Lisinopril (Zestril) 5 mg PO DAILY [facility] Last Admin: 12/08/17 10:09 Dose: 5 mg Lorazepam (Ativan) 1 mg IVP Q4H PRN; Protocol PRN Reason: Symptoms of alcohol withdrawl Sodium Hypochlorite (Dakins Solution 0.25%) 0 ml TOP DAILY [facility] Last Admin: 12/08/17 12:58 Dose: 1 appl - Labs Labs: 12/08/17 07:15 12/08/17 07:00 - Constitutional Appears: Non-toxic, No Acute Distress - Head Exam Head Exam: ATRAUMATIC - Eye Exam Eye Exam: Normal appearance - ENT Exam ENT Exam: Mucous Membranes Moist - Neck Exam Neck Exam: absent: Lymphadenopathy - Respiratory Exam Respiratory Exam: Clear to Ausculation Bilateral, NORMAL BREATHING PATTERN. absent: Accessory Muscle Use, Rales, Rhonchi, Wheezes, Respiratory Distress - Cardiovascular Exam Cardiovascular Exam: REGULAR RHYTHM, +S1, +S2 - GI/Abdominal Exam GI & Abdominal Exam: Soft. absent: Distended, Firm, Guarding, Rigid - Extremities Exam Extremities Exam: absent: Calf Tenderness Additional comments: Right LE - dressing in place. No erythema noted above ankle - Neurological Exam Neurological Exam: Alert, Awake, CN II-XII Intact, Oriented x3 - Psychiatric Exam Psychiatric exam: Normal Affect, Normal Mood - Skin Skin Exam: Dry, Warm Assessment and Plan - Assessment and Plan (Free Text) Assessment: 72 year old male with a past medical history of DM and psoriasis admitted for swelling/possible abscess of 5th digit on right foot & cellulitis of right foot Plan: Right Foot 5th digit blister with cellulitis Podiatry consulted, Dr. Crow - help appreciated ID consulted, Dr. Quijano - help appreciated s/p I&D on 12/06 - per podiatry note, ~1 cc of sangious purulence drainage expressed Erythema boarder improving. MRI right foot - pending - r/o osteomyolitis Blood Culture - negative at 48 hours Wound Culture - gram positive cocci Urine Culture - negative Dressings per Podiatry Abx per ID Vanco 1gm IVPB q12h Zosyn 3.375mg IVPB q6h Tylenol 650mg PO q6h prn Diabetes Hgb A1c 12.6 Blood Sugars consistently >200 Levemir 5units SC BID [facility] - mod accuchecks Labor Delivery Rn referral Patient educated on diabetes and meaning of Hgb A1c/Blood Sugar levels. Had discussion with patient about wishes to start patient on long acting insulin. Patient is in agreement to start medication and continue medication when he is discharged home. Hypertension Lisinopril 5mg PO daily Continue to monitor Alcohol Abuse Upon admission alc level <10 UDS negative Ativan 1mg IVP q4h prn [facility] protocol Seizure precautions Aspiration precautions Prophylactic Care Pepcid 20mg PO BID Heparin 5,000 units SC q8h Case discussed with Dr. Sergio Martinsn PGY1 <Darron Hill - Last Filed: 12/09/17 07:15> Objective - Vital Signs/Intake and Output Vital Signs (last 24 hours): Temp Pulse Resp BP Pulse Ox 97.4 F L 82 18 152/89 H 96 12/08/17 22:13 12/08/17 22:13 12/08/17 22:13 12/08/17 22:13 12/08/17 22:13 Intake and Output: 12/09/17 12/09/17 06:59 18:59 Intake Total 1040 Balance 1040 - Medications Medications: Current Medications Acetaminophen (Tylenol 325mg Tab) 650 mg PO Q6 PRN PRN Reason: Pain, moderate (4-7) Famotidine (Pepcid) 20 mg PO BID [facility] Last Admin: 12/08/17 17:25 Dose: 20 mg Heparin Sodium (Porcine) (Heparin) 5,000 units SC Q8H [facility] PRN Reason: Protocol Last Admin: 12/09/17 01:30 Dose: Not Given Vancomycin HCl (Vancomycin 1gm) 1 gm in 250 mls @ 167 mls/hr IVPB Q12H [facility] PRN Reason: Protocol Last Admin: 12/08/17 21:39 Dose: 167 mls/hr Piperacillin Sod/Tazobactam Sod (Zosyn 3.375 In Ns 100ml) 100 mls @ 200 mls/hr IVPB Q6 [facility] PRN Reason: Protocol Stop: 12/16/17 18:01 Last Admin: 12/09/17 05:13 Dose: 200 mls/hr Insulin Detemir (Levemir) 5 unit SC BID [facility] Last Admin: 12/08/17 17:25 Dose: 5 unit Insulin Human Regular (Humulin R Med) 0 units SC ACHS [facility] PRN Reason: Protocol Last Admin: 12/08/17 21:38 Dose: 2 units Lisinopril (Zestril) 5 mg PO DAILY [facility] Last Admin: 12/08/17 10:09 Dose: 5 mg Lorazepam (Ativan) 1 mg IVP Q4H PRN; Protocol PRN Reason: Symptoms of alcohol withdrawl Sodium Hypochlorite (Dakins Solution 0.25%) 0 ml TOP DAILY [facility] Last Admin: 12/08/17 12:58 Dose: 1 appl - Labs Labs: 12/08/17 07:15 12/08/17 07:00 Attending/Attestation - Attestation I have personally seen and examined this patient.: Yes I have fully participated in the care of the patient.: Yes I have reviewed all pertinent clinical information, including history, physical exam and plan: Yes Notes (Text): 12/08/17 72 year old male with past medical history of diabetes who presented with right foot cellulitis and 5th digit abscess. He was seen by podiatry and is s/p I&D at bedside. Continue with wound care as per podiatry. Continue with iv antibiotics. Wound culture so far growing gram positive cocci. Xray was negative. Arterial dopplers were relatively negative. MRI is ordered to rule out OM. A1c in 12.6. He is currently on insulin ss and also started on levemir. He was counselled on lifestyle and diet modifications and medication compliance. Continue with lisinopril for hypertension. He was counselled on alcohol abstinence. Darron Hill MD Hospitalist.
--- NOTE | 2017-12-08 21:47 | CP.PCM.PN ---
Subjective - Date & Time of Evaluation Date of Evaluation: 12/08/17 Time of Evaluation: 12:55 - Subjective Subjective: 72 y/o M with PMH of DM and psoriasis with right 5th toe necrotic ulceration with cellulitis. Patient relates improvement in pain. Patient is laying comfortably in bed, in NAD, and AA0x3. Patient reports that he is feeling well. Denies nausea, fever, shortness of breath, chest pain or chills. Denies acute overnight events. Reports being ambulating without issues. No new pedal complaints. Objective - Vital Signs/Intake and Output Vital Signs (last 24 hours): Temp Pulse Resp BP Pulse Ox 98.6 F 80 97 H 146/91 H 94 L 12/08/17 14:00 12/08/17 14:00 12/08/17 14:00 12/08/17 14:00 12/08/17 06:00 - Medications Medications: Current Medications Acetaminophen (Tylenol 325mg Tab) 650 mg PO Q6 PRN PRN Reason: Pain, moderate (4-7) Famotidine (Pepcid) 20 mg PO BID [facility] Last Admin: 12/08/17 17:25 Dose: 20 mg Heparin Sodium (Porcine) (Heparin) 5,000 units SC Q8H [facility] PRN Reason: Protocol Last Admin: 12/08/17 15:26 Dose: Not Given Vancomycin HCl (Vancomycin 1gm) 1 gm in 250 mls @ 167 mls/hr IVPB Q12H [facility] PRN Reason: Protocol Last Admin: 12/08/17 21:39 Dose: 167 mls/hr Piperacillin Sod/Tazobactam Sod (Zosyn 3.375 In Ns 100ml) 100 mls @ 200 mls/hr IVPB Q6 [facility] PRN Reason: Protocol Stop: 12/16/17 18:01 Last Admin: 12/08/17 17:26 Dose: 200 mls/hr Insulin Detemir (Levemir) 5 unit SC BID [facility] Last Admin: 12/08/17 17:25 Dose: 5 unit Insulin Human Regular (Humulin R Med) 0 units SC ACHS [facility] PRN Reason: Protocol Last Admin: 12/08/17 21:38 Dose: 2 units Lisinopril (Zestril) 5 mg PO DAILY [facility] Last Admin: 12/08/17 10:09 Dose: 5 mg Lorazepam (Ativan) 1 mg IVP Q4H PRN; Protocol PRN Reason: Symptoms of alcohol withdrawl Sodium Hypochlorite (Dakins Solution 0.25%) 0 ml TOP DAILY [facility] Last Admin: 12/08/17 12:58 Dose: 1 appl - Labs Labs: 12/08/17 07:15 12/08/17 07:00 - Constitutional Appears: Well, Non-toxic, No Acute Distress - Extremities Exam Extremities Exam: absent: Calf Tenderness Additional comments: Lower extremity exam: VASC: DP and PT 2/4 bilaterally, CFT < 3 seconds x10 digits, temperature gradient WNL, edema noted to the right 5th digit ORTHO: pain with palpation to the 5th digit NEURO: gross intact and protective sensation intact DERM: right 5th toe distal plantar wound with fibronecrosis measuring approximately about , no exposed bone, +edema, +malodor, erythema extending up to the ankle which has decreased significantly, AROM to all toes, drainage noted to ulceration - Neurological Exam Neurological Exam: Alert, Awake, Oriented x3 - Psychiatric Exam Psychiatric exam: Normal Affect, Normal Mood Assessment and Plan - Assessment and Plan (Free Text) Assessment: 72 y.o male with right 5th toe necrotic ulceration with cellulitis-improving Plan: Patient examined and evaluated. Discussed plan in detail with attending Dr. Crow For now we will continue conservative care with abx and wound care. Cleansed ulceration with Dakins solution, Dakins wet to dry to the 5th digit ulceration, dsd and kerlix applied Reviewed arterial non-invasive studies- Normal ABIs/PVRs. Continue abx vanc/zosyn Awaiting wound culture results appreciate ID recs Will continue to follow while patient in house
[2017-12-09] MEDS: Piperacillin/Tazobact 3.375 gm 100 ML IVPB SCH ×4 (05:13→22:59)
[2017-12-09 07:23] LABS: BASO # 0.04 K/mm3 (0.0-2.0); BASO % 0.9 % (0.0-3.0); EOS # 0.2 (0.0-0.7); GRAN # 1.67 (1.4-6.5); GRAN % 39.6 % (50.0-68.0); HEMOGLOBIN 12.9 g/dL (14.0-18.0); LYMPH # 1.4 (1.2-3.4); LYMPH % 33.9 % (22.0-35.0); MEAN CELL VOLUME 87.5 fl (80.0-105.0); MEAN CORPUSCULAR HEMOGLOBIN 30.4 pg (25.0-35.0); MEAN CORPUSCULAR HGB CONC 34.7 g/dl (31.0-37.0); MEAN PLATELET VOLUME 9.3 fl (7.0-11.0); MONO # 0.9 (0.1-0.6); MONO % 21.6 % (1.0-6.0); PLATELET COUNT 185 10^3/uL (120.0-450.0); RBC 4.25 10^6/uL (3.5-6.1); RED CELL DISTRIBUTION WIDTH 12.3 % (11.5-14.5); WHITE BLOOD COUNT 4.2 10^3/ul (4.5-11.0)
[2017-12-09 07:38] LABS: ALB/GLOB RATIO 1.1 (1.1-1.8); ALBUMIN 3.3 g/dL (3.0-4.8); ALT/SGPT 100 U/L (7-56); AST/SGOT 89 U/L (17-59); BLOOD UREA NITROGEN 10 mg/dL (7-21); CALCIUM 8.8 mg/dL (8.4-10.5); GFR AFRICAN-AMERICAN > 60; GFR NON-AFRICAN AMERICAN > 60
[2017-12-09 08:27] LABS: EOSINOPHIL 6 % (0.0-3.0); LYMPHOCYTE 38 % (22.0-35.0); MONOCYTE 15 % (1.0-6.0); NEUTROPHIL 41 % (50.0-70.0)
[2017-12-09] MEDS: Insulin Reg-MEDIUM-Coverage SC SCH ×4 (08:37→22:43)
[2017-12-09] MEDS: Vancomycin 1gm in NS 250ml 1 GM/250 ML BAG IVPB SCH ×2 (09:45→21:00)
--- NOTE | 2017-12-09 10:38 | CP.PCM.PN ---
<Kenn Wynn - Last Filed: 12/09/17 10:38> Subjective - Date & Time of Evaluation Date of Evaluation: 12/09/17 Time of Evaluation: 06:00 - Subjective Subjective: Patient seen and examined at bedside. No acute events overnight. Patient Denies any pain in his right foot. He states he has had 6 episodes of diarrhea since last night very watery consistency. He denies fevers, chills, nausea, vomiting, chest pain, shortness of breath, palpitations, abdominal pain, headaches, numbness or tingling. Objective - Vital Signs/Intake and Output Vital Signs (last 24 hours): Temp Pulse Resp BP Pulse Ox 98.2 F 76 20 158/96 H 99 12/09/17 06:00 12/09/17 06:00 12/09/17 06:00 12/09/17 06:00 12/09/17 06:00 Intake and Output: 12/09/17 12/09/17 06:59 18:59 Intake Total 1040 Balance 1040 - Medications Medications: Current Medications Acetaminophen (Tylenol 325mg Tab) 650 mg PO Q6 PRN PRN Reason: Pain, moderate (4-7) Famotidine (Pepcid) 20 mg PO BID [facility] Last Admin: 12/09/17 09:46 Dose: 20 mg Heparin Sodium (Porcine) (Heparin) 5,000 units SC Q8H [facility] PRN Reason: Protocol Last Admin: 12/09/17 08:36 Dose: 5,000 units Vancomycin HCl (Vancomycin 1gm) 1 gm in 250 mls @ 167 mls/hr IVPB Q12H [facility] PRN Reason: Protocol Last Admin: 12/09/17 09:45 Dose: 167 mls/hr Piperacillin Sod/Tazobactam Sod (Zosyn 3.375 In Ns 100ml) 100 mls @ 200 mls/hr IVPB Q6 [facility] PRN Reason: Protocol Stop: 12/16/17 18:01 Last Admin: 12/09/17 05:13 Dose: 200 mls/hr Insulin Detemir (Levemir) 8 unit SC BID [facility] Insulin Human Regular (Humulin R Med) 0 units SC ACHS [facility] PRN Reason: Protocol Last Admin: 12/09/17 08:37 Dose: 5 units Lisinopril (Zestril) 5 mg PO DAILY [facility] Last Admin: 12/09/17 09:46 Dose: 5 mg Lorazepam (Ativan) 1 mg IVP Q4H PRN; Protocol PRN Reason: Symptoms of alcohol withdrawl Sodium Hypochlorite (Dakins Solution 0.25%) 0 ml TOP DAILY [facility] Last Admin: 12/08/17 12:58 Dose: 1 appl - Labs Labs: 12/09/17 07:00 12/09/17 07:00 - Constitutional Appears: Non-toxic, No Acute Distress - Head Exam Head Exam: ATRAUMATIC, NORMAL INSPECTION, NORMOCEPHALIC - Eye Exam Eye Exam: Normal appearance - ENT Exam ENT Exam: Mucous Membranes Moist - Respiratory Exam Respiratory Exam: Clear to Ausculation Bilateral, NORMAL BREATHING PATTERN - Cardiovascular Exam Cardiovascular Exam: REGULAR RHYTHM, +S1, +S2 - GI/Abdominal Exam GI & Abdominal Exam: Soft. absent: Tenderness - Extremities Exam Additional comments: Right LE - dressing in place. - Neurological Exam Neurological Exam: Alert, Awake, Oriented x3 Assessment and Plan - Assessment and Plan (Free Text) Assessment: 72 year old male with a past medical history of DM and psoriasis admitted for swelling/possible abscess of 5th digit on right foot & cellulitis of right foot. Plan: Right Foot 5th digit blister with cellulitis Podiatry consulted, Dr. Crow - help appreciated ID consulted, Dr. Quijano - help appreciated s/p I&D on 12/06 - per podiatry note, ~1 cc of sangious purulence drainage expressed Erythema boarder improving MRI right foot - pending - r/o osteomyolitis Blood Culture - negative at 48 hours Wound Culture - gram positive cocci Urine Culture - negative Dressings per Podiatry Abx per ID Vancomycin Zosyn Tylenol 650mg PO q6h prn Diabetes Hgb A1c 12.6 Blood Sugars consistently >200 increased Levemir 8 units SC BID [facility] - mod accuchecks Shield Installer referral Hypertension Lisinopril 5mg PO daily Continue to monitor Diarrhea Cdiff toxin and antigen pending Alcohol Abuse Upon admission alc level <10 UDS negative Ativan 1mg IVP q4h prn CIWA protocol Seizure precautions Aspiration precautions Elevated Liver Enzymes AST and ALT elevated from previous day Hep panel negative will continue to monitor Prophylactic Care Pepcid 20mg PO BID Heparin 5,000 units SC q8h <Darron Hill A - Last Filed: 12/09/17 11:14> Objective - Vital Signs/Intake and Output Vital Signs (last 24 hours): Temp Pulse Resp BP Pulse Ox 98.2 F 76 20 158/96 H 99 12/09/17 06:00 12/09/17 06:00 12/09/17 06:00 12/09/17 06:00 12/09/17 06:00 Intake and Output: 12/09/17 12/09/17 06:59 18:59 Intake Total 1040 Balance 1040 - Medications Medications: Current Medications Acetaminophen (Tylenol 325mg Tab) 650 mg PO Q6 PRN PRN Reason: Pain, moderate (4-7) Famotidine (Pepcid) 20 mg PO BID [facility] Last Admin: 12/09/17 09:46 Dose: 20 mg Heparin Sodium (Porcine) (Heparin) 5,000 units SC Q8H [facility] PRN Reason: Protocol Last Admin: 12/09/17 08:36 Dose: 5,000 units Vancomycin HCl (Vancomycin 1gm) 1 gm in 250 mls @ 167 mls/hr IVPB Q12H [facility] PRN Reason: Protocol Last Admin: 12/09/17 09:45 Dose: 167 mls/hr Piperacillin Sod/Tazobactam Sod (Zosyn 3.375 In Ns 100ml) 100 mls @ 200 mls/hr IVPB Q6 [facility] PRN Reason: Protocol Stop: 12/16/17 18:01 Last Admin: 12/09/17 05:13 Dose: 200 mls/hr Insulin Detemir (Levemir) 8 unit SC BID [facility] Insulin Human Regular (Humulin R Med) 0 units SC ACHS [facility] PRN Reason: Protocol Last Admin: 12/09/17 08:37 Dose: 5 units Lisinopril (Zestril) 5 mg PO DAILY [facility] Last Admin: 12/09/17 09:46 Dose: 5 mg Lorazepam (Ativan) 1 mg IVP Q4H PRN; Protocol PRN Reason: Symptoms of alcohol withdrawl Sodium Hypochlorite (Dakins Solution 0.25%) 0 ml TOP DAILY [facility] Last Admin: 12/08/17 12:58 Dose: 1 appl - Labs Labs: 12/09/17 07:00 12/09/17 07:00 Attending/Attestation - Attestation I have personally seen and examined this patient.: Yes I have fully participated in the care of the patient.: Yes I have reviewed all pertinent clinical information, including history, physical exam and plan: Yes Notes (Text): 12/09/17 11:11 72 year old male with past medical history of diabetes who presented with right foot cellulitis and 5th digit abscess. He was seen by podiatry and is s/p I&D at bedside. Continue with wound care as per podiatry. Continue with iv antibiotics. Wound culture is growing staphylococcus lugdenensis. Xray was negative. Arterial dopplers were relatively negative. MRI is pending to rule out OM. A1c in 12.6. He is on levemir and insulin ss. Will increase levemir dose today. He was counselled on lifestyle and diet modifications and medication compliance. LFTs are mildly elevated which we will monitor. Hepatitis panel was negative. He denies any abdominal pain. CDiff study is ordered as he is complaining of diarrhea. Will replete and repeat potassium for hypokalemia. Continue with lisinopril for hypertension. He was counselled on alcohol abstinence. Darron Hill MD Hospitalist.
--- NOTE | 2017-12-09 11:15 | CP.PCM.PN ---
Subjective - Date & Time of Evaluation Date of Evaluation: 12/09/17 Time of Evaluation: 11:11 - Subjective Subjective: Podiatry Progress Note for Dr. Crow 72M seen at bedside for necrotic right fifth digit ulceration with cellulitic changes. Patient is AAO x 3 and NAD during examination. Denies any acute overnight events or any new pedal complaints. Denies any recent N/V/F/C/CP/SOB/ D. States that redness to his leg and swelling to his fifth toe are greatly improved. Objective - Vital Signs/Intake and Output Vital Signs (last 24 hours): Temp Pulse Resp BP Pulse Ox 98.2 F 76 20 158/96 H 99 12/09/17 06:00 12/09/17 06:00 12/09/17 06:00 12/09/17 06:00 12/09/17 06:00 Intake and Output: 12/09/17 12/09/17 06:59 18:59 Intake Total 1040 Balance 1040 - Medications Medications: Current Medications Acetaminophen (Tylenol 325mg Tab) 650 mg PO Q6 PRN PRN Reason: Pain, moderate (4-7) Famotidine (Pepcid) 20 mg PO BID [facility] Last Admin: 12/09/17 09:46 Dose: 20 mg Heparin Sodium (Porcine) (Heparin) 5,000 units SC Q8H [facility] PRN Reason: Protocol Last Admin: 12/09/17 08:36 Dose: 5,000 units Vancomycin HCl (Vancomycin 1gm) 1 gm in 250 mls @ 167 mls/hr IVPB Q12H [facility] PRN Reason: Protocol Last Admin: 12/09/17 09:45 Dose: 167 mls/hr Piperacillin Sod/Tazobactam Sod (Zosyn 3.375 In Ns 100ml) 100 mls @ 200 mls/hr IVPB Q6 [facility] PRN Reason: Protocol Stop: 12/16/17 18:01 Last Admin: 12/09/17 05:13 Dose: 200 mls/hr Insulin Detemir (Levemir) 8 unit SC BID [facility] Insulin Human Regular (Humulin R Med) 0 units SC ACHS [facility] PRN Reason: Protocol Last Admin: 12/09/17 08:37 Dose: 5 units Lisinopril (Zestril) 5 mg PO DAILY [facility] Last Admin: 12/09/17 09:46 Dose: 5 mg Lorazepam (Ativan) 1 mg IVP Q4H PRN; Protocol PRN Reason: Symptoms of alcohol withdrawl Sodium Hypochlorite (Dakins Solution 0.25%) 0 ml TOP DAILY [facility] Last Admin: 12/08/17 12:58 Dose: 1 appl - Labs Labs: 12/09/17 07:00 12/09/17 07:00 - Constitutional Appears: Well, Non-toxic, No Acute Distress - Head Exam Head Exam: ATRAUMATIC, NORMOCEPHALIC - Extremities Exam Additional comments: Lower extremity exam: VASC: DP and PT 2/4 bilaterally, CFT < 3 seconds x10 digits, temperature gradient WNL, edema noted to the right 5th digit ORTHO: Minimal pain with palpation to the right 5th digit NEURO: Epicritic and protective sensation grossly diminished but intact b/l DERM: right 5th toe distal plantar wound with fibronecrotic base measuring approximately 1 cm x 1 cm x 0.3 cm, no exposed bone, +edema, no malodor, erythema extending to the level of midfoot; significantly improved. AROM to all toes and no drainage noted to ulceration - Neurological Exam Neurological Exam: Alert, Awake, Oriented x3 - Psychiatric Exam Psychiatric exam: Normal Affect, Normal Mood Assessment and Plan - Assessment and Plan (Free Text) Assessment: 72M seen at bedside for necrotic right fifth digit ulceration with cellulitic changes Plan: Patient seen and evaluated Plan discussed with attending Dr. Crow Afebrile, absent leukocytosis Wound cx right foot final: Staph Lugdunensis Continue IV abx per ID R foot xray: Normal R foot radiographs BORA/PVRs: Relatively normal BORA/PVRs at rest Wound dressed with Daikins solution wet to dry, DSD No plan for surgical intervention at this time F/u R foot MRI to r/o OM Podiatry will continue to follow while patient in house
[2017-12-09] MEDS: Dakin's Topical 0.25%-Half Strength (480 ml) TOP SCH (11:30)
[2017-12-09] MEDS: Insulin Detemir 100 units/ml Vial (Levemir) SC SCH ×3 (11:32→18:14)
--- NOTE | 2017-12-09 21:30 | PN ---
DATE: 12/09/2017 SUBJECTIVE: Patient is in bed, in no acute distress, nontoxic. PHYSICAL EXAMINATION: VITAL SIGNS: Temperature is 97, blood pressure is 150/90, respiratory rate of 20, heart rate of 76. HEENT: Unremarkable. NECK: Supple. LUNGS: Have decreased breath sounds. HEART: Normal S1, S2. ABDOMEN: Soft, nontender. LABORATORY DATA: Reveals a white count of 4.2, hemoglobin of 12, platelets of 185. Chemistries reveal a BUN of 10, creatinine of 0.7. Urinalysis is noted and toxicology is noted. HIV is negative. Microbiology reveals Staphylococcus lugdunensis from the right foot culture, pino sensitive organism. Blood cultures are negative. Urine cultures are negative. REVIEW OF ORDERS: Reveals the patient to be on vancomycin and Zosyn. ASSESSMENT AND PLAN: This is a 72-year-old male who is seen earlier today in 567, bed 2, with right foot cellulitis with a fifth toe gangrene with Staphylococcus lugdunensis, isolation of the organism may be confused with Staphylococcus aureus because of Staphylococcus lugdunensis clumping factor reacts with the latex agglutination test used to identify Staphylococcus aureus. Coagulation-negative species, but severity of infection resembles Staphylococcus aureus. This organism may cause endocarditis, vascular catheter related bloodstream, bone infection. Oxacillin is the drug and nafcillin, penicillin, cefazolin, or vancomycin are also alternative treatment. This particular organism's sensitivity, it is sensitive to oxacillin, the prevalence of methicillin-resistant Staphylococcus lugdunensis is approximately 5%. Patient is scheduled for MRI. We will make further recommendation. Currently on vancomycin and Zosyn, certainly adequate coverage. We will follow closely with you. Shelton Bennett MD
[2017-12-10] MEDS: Piperacillin/Tazobact 3.375 gm 100 ML IVPB SCH ×4 (05:36→23:02)
[2017-12-10 08:01] LABS: BASO # 0.05 K/mm3 (0.0-2.0); EOS # 0.3 (0.0-0.7); EOS % 5.5 % (1.5-5.0); GRAN # 1.4 (1.4-6.5); GRAN % 27.5 % (50.0-68.0); HEMOGLOBIN 14.3 g/dL (14.0-18.0); LYMPH # 2.6 (1.2-3.4); LYMPH % 51.3 % (22.0-35.0); MEAN CELL VOLUME 88.2 fl (80.0-105.0); MEAN PLATELET VOLUME 9.5 fl (7.0-11.0); MONO # 0.8 (0.1-0.6); MONO % 14.7 % (1.0-6.0); RBC 4.76 10^6/uL (3.5-6.1); RED CELL DISTRIBUTION WIDTH 12.3 % (11.5-14.5); WHITE BLOOD COUNT 5.1 10^3/ul (4.5-11.0)
[2017-12-10] MEDS: Insulin Reg-MEDIUM-Coverage SC SCH ×3 (08:05→16:41)
[2017-12-10 08:16] LABS: ALB/GLOB RATIO 1.1 (1.1-1.8); ALBUMIN 3.7 g/dL (3.0-4.8); ALT/SGPT 129 U/L (7-56); AST/SGOT 107 U/L (17-59); BLOOD UREA NITROGEN 8 mg/dL (7-21); CALCIUM 8.7 mg/dL (8.4-10.5); GFR AFRICAN-AMERICAN > 60; GFR NON-AFRICAN AMERICAN > 60
[2017-12-10] MEDS: Insulin Detemir 100 units/ml Vial (Levemir) SC SCH ×2 (09:38→17:17)
[2017-12-10] MEDS: Vancomycin 1gm in NS 250ml 1 GM/250 ML BAG IVPB SCH ×2 (09:39→21:02)
[2017-12-10] MEDS: Dakin's Topical 0.25%-Half Strength (480 ml) TOP SCH (09:40)
--- NOTE | 2017-12-10 10:43 | CP.PCM.PN ---
<Kenn Wynn - Last Filed: 12/10/17 10:40> Subjective - Date & Time of Evaluation Date of Evaluation: 12/10/17 Time of Evaluation: 06:00 - Subjective Subjective: Patient seen and evaluated bedside. No acute issues overnight. Patient complaining of diarrhea. Patient denies fever, chills, chest pain, shortness of breath, or any other complaints at this time. Objective - Vital Signs/Intake and Output Vital Signs (last 24 hours): Temp Pulse Resp BP Pulse Ox 98.4 F 75 20 154/95 H 95 12/10/17 06:00 12/10/17 09:38 12/10/17 06:00 12/10/17 09:38 12/10/17 06:00 Intake and Output: 12/10/17 12/10/17 06:59 18:59 Intake Total 900 Balance 900 - Medications Medications: Current Medications Acetaminophen (Tylenol 325mg Tab) 650 mg PO Q6 PRN PRN Reason: Pain, moderate (4-7) Famotidine (Pepcid) 20 mg PO BID [facility] Last Admin: 12/10/17 09:38 Dose: 20 mg Heparin Sodium (Porcine) (Heparin) 5,000 units SC Q8H [facility] PRN Reason: Protocol Last Admin: 12/10/17 08:18 Dose: Not Given Vancomycin HCl (Vancomycin 1gm) 1 gm in 250 mls @ 167 mls/hr IVPB Q12H [facility] PRN Reason: Protocol Last Admin: 12/10/17 09:39 Dose: 167 mls/hr Piperacillin Sod/Tazobactam Sod (Zosyn 3.375 In Ns 100ml) 100 mls @ 200 mls/hr IVPB Q6 [facility] PRN Reason: Protocol Stop: 12/16/17 18:01 Last Admin: 12/10/17 05:36 Dose: 200 mls/hr Insulin Detemir (Levemir) 8 unit SC BID [facility] Last Admin: 12/10/17 09:38 Dose: 8 unit Insulin Human Regular (Humulin R Med) 0 units SC ACHS [facility] PRN Reason: Protocol Last Admin: 12/10/17 08:05 Dose: 3 units Lisinopril (Zestril) 5 mg PO DAILY [facility] Last Admin: 12/10/17 09:38 Dose: 5 mg Lorazepam (Ativan) 1 mg IVP Q4H PRN; Protocol PRN Reason: Symptoms of alcohol withdrawl Last Admin: 12/09/17 20:17 Dose: 1 mg Sodium Hypochlorite (Dakins Solution 0.25%) 0 ml TOP DAILY [facility] Last Admin: 12/10/17 09:40 Dose: 1 appl - Labs Labs: 12/10/17 07:30 12/10/17 07:30 - Constitutional Appears: Non-toxic, No Acute Distress - Head Exam Head Exam: ATRAUMATIC, NORMAL INSPECTION, NORMOCEPHALIC - Eye Exam Eye Exam: EOMI, Normal appearance, PERRL - ENT Exam ENT Exam: Mucous Membranes Moist - Respiratory Exam Respiratory Exam: Clear to Ausculation Bilateral, NORMAL BREATHING PATTERN - Cardiovascular Exam Cardiovascular Exam: REGULAR RHYTHM, +S1, +S2 - GI/Abdominal Exam GI & Abdominal Exam: Soft. absent: Tenderness - Extremities Exam Additional comments: RIGHT LE- dressing in place - Neurological Exam Neurological Exam: Alert, Awake, Oriented x3 Assessment and Plan - Assessment and Plan (Free Text) Assessment: 72 year old male with a past medical history of DM and psoriasis admitted for swelling/possible abscess of 5th digit on right foot & cellulitis of right foot. Plan: Right Foot 5th digit blister with cellulitis Podiatry consulted, Dr. Crow - help appreciated ID consulted, Dr. Quijano - help appreciated s/p I&D on 12/06 - per podiatry note, ~1 cc of sangious purulence drainage expressed Erythema boarder improving MRI right foot - pending - r/o osteomyolitis Blood Culture - negative at 48 hours Wound Culture - gram positive cocci Urine Culture - negative Dressings per Podiatry Abx per ID Vancomycin Zosyn Tylenol 650mg PO q6h prn Diabetes Hgb A1c 12.6 Blood Sugars consistently >200 increased Levemir 8 units SC BID ISS - med accuchecks Nurse Assistant referral Hypertension Lisinopril 5mg PO daily Continue to monitor Diarrhea Cdiff toxin and antigen pending Alcohol Abuse Upon admission alc level <10 UDS negative Ativan 1mg IVP q4h prn [facility] protocol Seizure precautions Aspiration precautions Elevated Liver Enzymes AST and ALT elevated Hep panel negative will continue to monitor abdominal US pending Prophylactic Care Pepcid 20mg PO BID Heparin 5,000 units SC q8h <Darron Hill A - Last Filed: 12/10/17 11:00> Objective - Vital Signs/Intake and Output Vital Signs (last 24 hours): Temp Pulse Resp BP Pulse Ox 98.4 F 75 20 154/95 H 95 12/10/17 06:00 12/10/17 09:38 12/10/17 06:00 12/10/17 09:38 12/10/17 06:00 Intake and Output: 12/10/17 12/10/17 06:59 18:59 Intake Total 900 Balance 900 - Medications Medications: Current Medications Acetaminophen (Tylenol 325mg Tab) 650 mg PO Q6 PRN PRN Reason: Pain, moderate (4-7) Famotidine (Pepcid) 20 mg PO BID [facility] Last Admin: 12/10/17 09:38 Dose: 20 mg Heparin Sodium (Porcine) (Heparin) 5,000 units SC Q8H [facility] PRN Reason: Protocol Last Admin: 12/10/17 08:18 Dose: Not Given Vancomycin HCl (Vancomycin 1gm) 1 gm in 250 mls @ 167 mls/hr IVPB Q12H [facility] PRN Reason: Protocol Last Admin: 12/10/17 09:39 Dose: 167 mls/hr Piperacillin Sod/Tazobactam Sod (Zosyn 3.375 In Ns 100ml) 100 mls @ 200 mls/hr IVPB Q6 [facility] PRN Reason: Protocol Stop: 12/16/17 18:01 Last Admin: 12/10/17 05:36 Dose: 200 mls/hr Insulin Detemir (Levemir) 8 unit SC BID [facility] Last Admin: 12/10/17 09:38 Dose: 8 unit Insulin Human Regular (Humulin R Med) 0 units SC ACHS [facility] PRN Reason: Protocol Last Admin: 12/10/17 08:05 Dose: 3 units Lisinopril (Zestril) 5 mg PO DAILY [facility] Last Admin: 12/10/17 09:38 Dose: 5 mg Lorazepam (Ativan) 1 mg IVP Q4H PRN; Protocol PRN Reason: Symptoms of alcohol withdrawl Last Admin: 12/09/17 20:17 Dose: 1 mg Sodium Hypochlorite (Dakins Solution 0.25%) 0 ml TOP DAILY [facility] Last Admin: 12/10/17 09:40 Dose: 1 appl - Labs Labs: 12/10/17 07:30 12/10/17 07:30 Attending/Attestation - Attestation I have personally seen and examined this patient.: Yes I have fully participated in the care of the patient.: Yes I have reviewed all pertinent clinical information, including history, physical exam and plan: Yes Notes (Text): 12/10/17 10:58 72 year old male with past medical history of diabetes who presented with right foot cellulitis and 5th digit abscess. He was seen by podiatry and is s/p I&D at bedside. Continue with wound care as per podiatry. Continue with iv antibiotics. Wound culture is growing staphylococcus lugdenensis. Xray was negative. Arterial dopplers were relatively negative. MRI was done yesterday with pending read to rule out osteomyelitis. Hemoglobin A1c is 12.6. He is on levemir and insulin ss. He was counselled on lifestyle and diet modifications and medication compliance. LFTs are elevated. Likely contributing factor is chronic ETOH abuse. Hepatitis panel was negative. Ultrasound of abdomen is ordered. CDiff study is still pending as he is complaining of diarrhea. Continue with lisinopril for hypertension. He was counselled on alcohol abstinence. Darron Hill MD Hospitalist.
--- NOTE | 2017-12-10 12:40 | PN ---
DATE: 12/10/2017 SUBJECTIVE: The patient is in bed, in no acute distress. PHYSICAL EXAMINATION: VITAL SIGNS: Temperature is 98, blood pressure is 150/90, respiratory rate of 16. HEENT: Examination of HEENT is unremarkable. NECK: Supple. LUNGS: Have decreased breath sounds. HEART: Normal S1, S2. ABDOMEN: Soft. LABORATORY DATA: Laboratory examination reveals a white count of 5.1, hemoglobin of 14, platelets of 202. Chemistries reveals a BUN of 8, creatinine of 0.7. LFTs are noted. The patient's HIV is negative. Hepatitis profile is negative. Microbiology reveals Staphylococcus lugdunensis, pansensitive, oxacillin sensitive. The patient is on vancomycin and Zosyn. ASSESSMENT AND PLAN: This is a 72-year-old male, seen earlier today with a right foot cellulitis and a fifth toe gangrene with Staphylococcus lugdunensis. Isolation of this particular organism maybe confused with Staphylococcus aureus because of the lugdunensis clumping factor which reacts with the latex agglutination test used to identify Staphylococcus aureus. Organisms are coagulase-negative species, but severity infection resembles Staphylococcus aureus. It may cause endocarditis, vascular catheter related bacteremia and bone infection and oxacillin is the drug of choice and nafcillin, penicillin, cefazolin or vancomycin also alternative treatments and it is sensitive to oxacillin here and the prevalence of methicillin-resistant Staphylococcus lugdunensis is approximately 5%. Currently on vancomycin and Zosyn. The patient had an MRI. Waiting for MRI results before making final decision. We will follow closely with you. Shelton Bennett MD
--- NOTE | 2017-12-10 13:28 | CP.PCM.PN ---
Subjective - Date & Time of Evaluation Date of Evaluation: 12/10/17 Time of Evaluation: 13:25 - Subjective Subjective: Podiatry Progress Note for Dr. Crow 72M seen at bedside for necrotic right fifth digit ulceration with cellulitic changes. Patient is AAO x 3 and NAD during examination. Denies any acute overnight events or any new pedal complaints. Denies any recent N/V/F/C/CP/SOB/ D. Objective - Vital Signs/Intake and Output Vital Signs (last 24 hours): Temp Pulse Resp BP Pulse Ox 98.4 F 75 20 154/95 H 95 12/10/17 06:00 12/10/17 09:38 12/10/17 06:00 12/10/17 09:38 12/10/17 06:00 Intake and Output: 12/10/17 12/10/17 06:59 18:59 Intake Total 900 Balance 900 - Medications Medications: Current Medications Acetaminophen (Tylenol 325mg Tab) 650 mg PO Q6 PRN PRN Reason: Pain, moderate (4-7) Famotidine (Pepcid) 20 mg PO BID [facility] Last Admin: 12/10/17 09:38 Dose: 20 mg Heparin Sodium (Porcine) (Heparin) 5,000 units SC Q8H [facility] PRN Reason: Protocol Last Admin: 12/10/17 08:18 Dose: Not Given Vancomycin HCl (Vancomycin 1gm) 1 gm in 250 mls @ 167 mls/hr IVPB Q12H [facility] PRN Reason: Protocol Last Admin: 12/10/17 09:39 Dose: 167 mls/hr Piperacillin Sod/Tazobactam Sod (Zosyn 3.375 In Ns 100ml) 100 mls @ 200 mls/hr IVPB Q6 [facility] PRN Reason: Protocol Stop: 12/16/17 18:01 Last Admin: 12/10/17 11:56 Dose: 200 mls/hr Insulin Detemir (Levemir) 8 unit SC BID [facility] Last Admin: 12/10/17 09:38 Dose: 8 unit Insulin Human Regular (Humulin R Med) 0 units SC ACHS [facility] PRN Reason: Protocol Last Admin: 12/10/17 11:56 Dose: 5 units Lisinopril (Zestril) 5 mg PO DAILY [facility] Last Admin: 12/10/17 09:38 Dose: 5 mg Lorazepam (Ativan) 1 mg IVP Q4H PRN; Protocol PRN Reason: Symptoms of alcohol withdrawl Last Admin: 12/09/17 20:17 Dose: 1 mg Sodium Hypochlorite (Dakins Solution 0.25%) 0 ml TOP DAILY [facility] Last Admin: 12/10/17 09:40 Dose: 1 appl - Labs Labs: 12/10/17 07:30 12/10/17 07:30 - Constitutional Appears: Well, Non-toxic, No Acute Distress - Head Exam Head Exam: ATRAUMATIC, NORMOCEPHALIC - Extremities Exam Additional comments: Lower extremity exam: VASC: DP and PT 2/4 bilaterally, CFT < 3 seconds x10 digits, temperature gradient WNL, edema noted to the right 5th digit ORTHO: Minimal pain with palpation to the right 5th digit NEURO: Epicritic and protective sensation grossly diminished but intact b/l DERM: right 5th toe distal plantar wound with fibronecrotic base measuring approximately 1 cm x 1 cm x 0.3 cm, no exposed bone, +edema, no malodor, erythema extending to the level of midfoot; improved minimally since yesterday. AROM to all toes and no drainage noted to ulceration - Neurological Exam Neurological Exam: Alert, Awake, Oriented x3 - Psychiatric Exam Psychiatric exam: Normal Affect, Normal Mood Assessment and Plan - Assessment and Plan (Free Text) Assessment: 72M seen at bedside for necrotic right fifth digit ulceration with cellulitic changes Plan: Patient seen and evaluated Plan discussed with attending Dr. Crow Afebrile, absent leukocytosis Wound cx right foot final: Staph Lugdunensis Continue IV abx per ID R foot xray: Normal R foot radiographs R foot MRI taken yesterday, reading pending BORA/PVRs: Relatively normal BORA/PVRs at rest Wound dressed with Daikins solution wet to dry, DSD No plan for surgical intervention at this time. Plan may change pending MRI results Podiatry will continue to follow while patient in house
--- NOTE | 2017-12-10 17:01 | CP.PCM.PN ---
Subjective - Date & Time of Evaluation Date of Evaluation: 12/10/17 Time of Evaluation: 16:53 - Subjective Subjective: Patient see and evaluated at bedside. Had multiple episodes of diarrhea yesterday, improving today. relates improvement in pain. Denies F/C/N/V Objective - Vital Signs/Intake and Output Vital Signs (last 24 hours): Temp Pulse Resp BP Pulse Ox 98.4 F 75 20 154/95 H 95 12/10/17 06:00 12/10/17 09:38 12/10/17 06:00 12/10/17 09:38 12/10/17 06:00 Intake and Output: 12/10/17 12/10/17 06:59 18:59 Intake Total 900 480 Balance 900 480 - Medications Medications: Current Medications Acetaminophen (Tylenol 325mg Tab) 650 mg PO Q6 PRN PRN Reason: Pain, moderate (4-7) Famotidine (Pepcid) 20 mg PO BID [facility] Last Admin: 12/10/17 09:38 Dose: 20 mg Heparin Sodium (Porcine) (Heparin) 5,000 units SC Q8H [facility] PRN Reason: Protocol Last Admin: 12/10/17 08:18 Dose: Not Given Vancomycin HCl (Vancomycin 1gm) 1 gm in 250 mls @ 167 mls/hr IVPB Q12H [facility] PRN Reason: Protocol Last Admin: 12/10/17 09:39 Dose: 167 mls/hr Piperacillin Sod/Tazobactam Sod (Zosyn 3.375 In Ns 100ml) 100 mls @ 200 mls/hr IVPB Q6 [facility] PRN Reason: Protocol Stop: 12/16/17 18:01 Last Admin: 12/10/17 11:56 Dose: 200 mls/hr Insulin Detemir (Levemir) 8 unit SC BID [facility] Last Admin: 12/10/17 09:38 Dose: 8 unit Insulin Human Regular (Humulin R Med) 0 units SC ACHS [facility] PRN Reason: Protocol Last Admin: 12/10/17 11:56 Dose: 5 units Lisinopril (Zestril) 5 mg PO DAILY [facility] Last Admin: 12/10/17 09:38 Dose: 5 mg Lorazepam (Ativan) 1 mg IVP Q4H PRN; Protocol PRN Reason: Symptoms of alcohol withdrawl Last Admin: 12/09/17 20:17 Dose: 1 mg Sodium Hypochlorite (Dakins Solution 0.25%) 0 ml TOP DAILY [facility] Last Admin: 12/10/17 09:40 Dose: 1 appl - Labs Labs: 12/10/17 07:30 12/10/17 07:30 - Additional Findings Additional findings: Lower extremity examination: palpable pedal pulses 1/4 DP/PT, CFT to the toe>5 sec. calor improving. erythema residing now down to the 5th mpj. ulceration 1.5cm in diameter sinus track at 5o'clock close to periosteum does not track proximately. no purulence. infection improving. 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 AROM to affected toe. Assessment and Plan - Assessment and Plan (Free Text) Assessment: right 5th toe ulceration with cellulitis improving. r/o OM Uncontrolled Diabetes mellitus Plan: After obtaining consent the wound was again sharply excisionally debrided down to subcutaneous tissue removing most fibronecrotic tissue. area was then copiously irrigated with dakins and packed with wet-dry dakins. will continue daily irrigation and packing. awaiting MRI report. will order ESR for now will continue IV abx as per ID recs-appreciate recs based on clinical progress and mri report we may consider bone biopsy versus 5th toe amputation versus wound care will continue to monitor closely
[2017-12-11] MEDS: Piperacillin/Tazobact 3.375 gm 100 ML IVPB SCH ×4 (05:34→23:44)
[2017-12-11 07:03] LABS: BASO # 0.03 K/mm3 (0.0-2.0); BASO % 0.5 % (0.0-3.0); EOS # 0.2 (0.0-0.7); EOS % 3.2 % (1.5-5.0); GRAN # 3.09 (1.4-6.5); GRAN % 50.2 % (50.0-68.0); LYMPH # 1.7 (1.2-3.4); LYMPH % 27.9 % (22.0-35.0); MEAN CELL VOLUME 89.2 fl (80.0-105.0); MEAN CORPUSCULAR HEMOGLOBIN 29.9 pg (25.0-35.0); MEAN CORPUSCULAR HGB CONC 33.5 g/dl (31.0-37.0); MEAN PLATELET VOLUME 9.5 fl (7.0-11.0); MONO # 1.1 (0.1-0.6); MONO % 18.2 % (1.0-6.0); RBC 4.35 10^6/uL (3.5-6.1); RED CELL DISTRIBUTION WIDTH 12.4 % (11.5-14.5); WHITE BLOOD COUNT 6.2 10^3/ul (4.5-11.0)
[2017-12-11 07:38] LABS: ALBUMIN 3.3 g/dL (3.0-4.8); ALT/SGPT 111 U/L (7-56); AST/SGOT 68 U/L (17-59); BLOOD UREA NITROGEN 12 mg/dL (7-21); CALCIUM 8.7 mg/dL (8.4-10.5); GFR AFRICAN-AMERICAN > 60; GFR NON-AFRICAN AMERICAN > 60
[2017-12-11] MEDS: Insulin Reg-MEDIUM-Coverage SC SCH ×5 (08:12→21:12)
[2017-12-11] MEDS: Insulin Detemir 100 units/ml Vial (Levemir) SC SCH ×2 (10:37→17:10)
[2017-12-11] MEDS: Dakin's Topical 0.25%-Half Strength (480 ml) TOP SCH (10:38)
--- NOTE | 2017-12-11 10:53 | CP.PCM.PN ---
Subjective - Date & Time of Evaluation Date of Evaluation: 12/11/17 Time of Evaluation: 10:49 - Subjective Subjective: Podiatry Progress Note for Dr. Crow 72M seen at bedside accompanied by his friend for necrotic right fifth digit ulceration with cellulitic changes. Patient is AAO x 3 and NAD during examination. Denies any acute overnight events or any new pedal complaints. States that he was seen by Dr. Crow last night and that she debrided some of the tissue off his foot. Denies any current pain to the area. Denies any recent N/V/F/C/CP/SOB/D. Objective - Vital Signs/Intake and Output Vital Signs (last 24 hours): Temp Pulse Resp BP Pulse Ox 98.2 F 79 20 171/99 H 95 12/11/17 08:06 12/11/17 10:36 12/11/17 08:06 12/11/17 10:36 12/11/17 08:06 Intake and Output: 12/11/17 12/11/17 06:59 18:59 Intake Total 600 Balance 600 - Medications Medications: Current Medications Acetaminophen (Tylenol 325mg Tab) 650 mg PO Q6 PRN PRN Reason: Pain, moderate (4-7) Famotidine (Pepcid) 20 mg PO BID [facility] Last Admin: 12/11/17 10:36 Dose: 20 mg Heparin Sodium (Porcine) (Heparin) 5,000 units SC Q8H [facility] PRN Reason: Protocol Last Admin: 12/11/17 08:11 Dose: 5,000 units Piperacillin Sod/Tazobactam Sod (Zosyn 3.375 In Ns 100ml) 100 mls @ 200 mls/hr IVPB Q6 [facility] PRN Reason: Protocol Stop: 12/16/17 18:01 Last Admin: 12/11/17 05:34 Dose: 200 mls/hr Insulin Detemir (Levemir) 8 unit SC BID [facility] Last Admin: 12/11/17 10:37 Dose: 8 unit Insulin Human Regular (Humulin R Med) 0 units SC ACHS [facility] PRN Reason: Protocol Last Admin: 12/11/17 08:12 Dose: Not Given Lisinopril (Zestril) 5 mg PO DAILY [facility] Last Admin: 12/11/17 10:36 Dose: 5 mg Lorazepam (Ativan) 1 mg IVP Q4H PRN; Protocol PRN Reason: Symptoms of alcohol withdrawl Last Admin: 12/10/17 21:01 Dose: 1 mg Sodium Hypochlorite (Dakins Solution 0.25%) 0 ml TOP DAILY [facility] Last Admin: 12/11/17 10:38 Dose: 1 appl - Labs Labs: 12/11/17 06:00 12/11/17 06:00 - Constitutional Appears: Well, Non-toxic, No Acute Distress - Head Exam Head Exam: ATRAUMATIC, NORMOCEPHALIC - Extremities Exam Additional comments: Lower extremity exam: VASC: DP and PT 2/4 bilaterally, CFT < 3 seconds x10 digits, temperature gradient WNL, edema noted to the right 5th digit ORTHO: Minimal pain with palpation to the right 5th digit NEURO: Epicritic and protective sensation grossly diminished but intact b/l DERM: right 5th toe distal plantar wound with fibrous base measuring approximately 1 cm x 1 cm x 0.3 cm. Probes close to periosteum but not bone. Edema continues to improve and only extends to base of toe. No malodor. AROM to all toes and no drainage noted to ulceration - Neurological Exam Neurological Exam: Alert, Awake, Oriented x3 - Psychiatric Exam Psychiatric exam: Normal Affect, Normal Mood Assessment and Plan - Assessment and Plan (Free Text) Assessment: 72M seen at bedside for necrotic right fifth digit ulceration with cellulitic changes, improving Plan: Patient seen and evaluated Plan discussed with attending Dr. Crow Afebrile, absent leukocytosis Wound cx right foot final: Staph Lugdunensis Continue IV abx per ID ESR: 32 R foot xray: Normal R foot radiographs R foot MRI taken two days ago, final read pending BORA/PVRs: Relatively normal BORA/PVRs at rest Wound dressed with Daikins solution wet to dry, DSD No plan for surgical intervention at this time. Plan may change pending MRI results Podiatry will continue to follow while patient in house
--- NOTE | 2017-12-11 14:34 | PN ---
DATE: 12/11/2017 SUBJECTIVE: Patient is in bed, in no acute distress, nontoxic. PHYSICAL EXAMINATION: VITAL SIGNS: On exam, temperature is 98, blood pressure is 170/90, respiratory 20, heart rate of 75. HEENT: Unremarkable. NECK: Supple. LUNGS: Have decreased breath sounds. HEART: Normal S1, S2. ABDOMEN: Soft and nontender. LABORATORY EXAMINATION: Reveals a white count of 6.2, hemoglobin 13. Sed rate is . Chemistries are noted and urinalysis is noted, and serology is negative. Microbiology reveals Staph lugdunensis. Currently, the patient is on vancomycin and Zosyn. Dr. Guillermo Miles's progress note is reviewed. 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 We will discontinue the vancomycin, continue with the Zosyn. in a patient who has a history of diabetes mellitus and psoriasis with a necrotic right fifth digit ulcer. No plan for surgical intervention at this time. There is no pathology. Awaiting for MRI. We will follow with you. Shelton Bennett MD
--- NOTE | 2017-12-11 15:17 | CP.PCM.PN ---
<Nathan Biggs - Last Filed: 12/11/17 15:06> Subjective - Date & Time of Evaluation Date of Evaluation: 12/11/17 Time of Evaluation: 15:06 - Subjective Subjective: PGY1 Medicine Note for Dr. Lim Patient seen and examined at bedside this morning. No acute events overnight. Patient is very annoyed this morning, cursing that his foot is fine and that he is tired of having blood work done in the mornings. He says he has no pain in his foot. He is tolerating his diet. Patient denying any episodes of diarrhea since last night. Denies fevers, chills, nausea, vomiting, chest pain, shortness of breath, numbness or tingling. Objective - Vital Signs/Intake and Output Vital Signs (last 24 hours): Temp Pulse Resp BP Pulse Ox 98.2 F 79 20 171/99 H 95 12/11/17 08:06 12/11/17 10:36 12/11/17 08:06 12/11/17 10:36 12/11/17 08:06 Intake and Output: 12/11/17 12/11/17 06:59 18:59 Intake Total 600 560 Output Total 400 Balance 600 160 - Medications Medications: Current Medications Acetaminophen (Tylenol 325mg Tab) 650 mg PO Q6 PRN PRN Reason: Pain, moderate (4-7) Famotidine (Pepcid) 20 mg PO BID [facility] Last Admin: 12/11/17 10:36 Dose: 20 mg Heparin Sodium (Porcine) (Heparin) 5,000 units SC Q8H [facility] PRN Reason: Protocol Last Admin: 12/11/17 08:11 Dose: 5,000 units Piperacillin Sod/Tazobactam Sod (Zosyn 3.375 In Ns 100ml) 100 mls @ 200 mls/hr IVPB Q6 [facility] PRN Reason: Protocol Stop: 12/16/17 18:01 Last Admin: 12/11/17 11:03 Dose: 200 mls/hr Insulin Detemir (Levemir) 8 unit SC BID [facility] Last Admin: 12/11/17 10:37 Dose: 8 unit Insulin Human Regular (Humulin R Med) 0 units SC ACHS [facility] PRN Reason: Protocol Last Admin: 12/11/17 11:42 Dose: 3 units Lisinopril (Zestril) 5 mg PO DAILY [facility] Last Admin: 12/11/17 10:36 Dose: 5 mg Lorazepam (Ativan) 1 mg IVP Q4H PRN; Protocol PRN Reason: Symptoms of alcohol withdrawl Last Admin: 12/10/17 21:01 Dose: 1 mg Sodium Hypochlorite (Dakins Solution 0.25%) 0 ml TOP DAILY [facility] Last Admin: 12/11/17 10:38 Dose: 1 appl - Labs Labs: 12/11/17 06:00 12/11/17 06:00 - Constitutional Appears: Non-toxic, No Acute Distress - Head Exam Head Exam: ATRAUMATIC, NORMOCEPHALIC - Eye Exam Eye Exam: Normal appearance - ENT Exam ENT Exam: Mucous Membranes Moist - Respiratory Exam Respiratory Exam: Clear to Ausculation Bilateral, NORMAL BREATHING PATTERN. absent: Accessory Muscle Use, Rales, Rhonchi, Wheezes, Respiratory Distress - Cardiovascular Exam Cardiovascular Exam: REGULAR RHYTHM, +S1, +S2 - GI/Abdominal Exam GI & Abdominal Exam: Soft. absent: Distended, Firm, Guarding, Rigid, Tenderness - Extremities Exam Extremities Exam: absent: Calf Tenderness, Pedal Edema Additional comments: Right LE - Dressing on right foot. NO erythema on mcclendon. - Neurological Exam Neurological Exam: Alert, Awake, CN II-XII Intact, Oriented x3 - Psychiatric Exam Psychiatric exam: Agitated - Skin Skin Exam: Dry, Warm Assessment and Plan - Assessment and Plan (Free Text) Assessment: 72 year old male with a past medical history of DM and psoriasis admitted for swelling/possible abscess of 5th digit on right foot & cellulitis of right foot. Plan: Right Foot 5th digit blister with cellulitis Podiatry consulted, Dr. Crow - help appreciated ID consulted, Dr. Quijano - help appreciated s/p I&D on 12/06 - per podiatry note, ~1 cc of sangious purulence drainage expressed Right foot XR - Normal right foot radiographs. MRI right foot - Prelim report - Osteomyelitis of the fifth toe. - final read pending Lower Ext. BORA exam - Relatively normal BORA and PVR examination at rest. 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 Alcohol Abuse Upon admission alc level <10 UDS negative Ativan 1mg IVP q4h prn CIWA protocol Seizure precautions Aspiration precautions Elevated Liver Enzymes AST and ALT elevated Hep panel - negative HIV - negative will continue to monitor abdominal US pending Prophylactic Care Pepcid 20mg PO BID Heparin 5,000 units SC q8h Case discussed with Dr. Carina Evans Dian PGY1 <Juan Lim - Last Filed: 12/11/17 16:59> Objective - Vital Signs/Intake and Output Vital Signs (last 24 hours): Temp Pulse Resp BP Pulse Ox 98.3 F 84 18 131/79 99 12/11/17 14:00 12/11/17 14:00 12/11/17 14:00 12/11/17 14:00 12/11/17 14:00 Intake and Output: 12/11/17 12/11/17 06:59 18:59 Intake Total 600 560 Output Total 400 Balance 600 160 - Medications Medications: Current Medications Acetaminophen (Tylenol 325mg Tab) 650 mg PO Q6 PRN PRN Reason: Pain, moderate (4-7) Famotidine (Pepcid) 20 mg PO BID [facility] Last Admin: 12/11/17 10:36 Dose: 20 mg Glipizide (Glucotrol) 5 mg PO ACB [facility] Heparin Sodium (Porcine) (Heparin) 5,000 units SC Q8H [facility] PRN Reason: Protocol Last Admin: 12/11/17 16:09 Dose: 5,000 units Piperacillin Sod/Tazobactam Sod (Zosyn 3.375 In Ns 100ml) 100 mls @ 200 mls/hr IVPB Q6 [facility] PRN Reason: Protocol Stop: 12/16/17 18:01 Last Admin: 12/11/17 11:03 Dose: 200 mls/hr Insulin Detemir (Levemir) 8 unit SC BID [facility] Last Admin: 12/11/17 10:37 Dose: 8 unit Insulin Human Regular (Humulin R Med) 0 units SC ACHS [facility] PRN Reason: Protocol Last Admin: 12/11/17 11:42 Dose: 3 units Lisinopril (Zestril) 5 mg PO DAILY [facility] Last Admin: 12/11/17 10:36 Dose: 5 mg Lorazepam (Ativan) 1 mg IVP Q4H PRN; Protocol PRN Reason: Symptoms of alcohol withdrawl Last Admin: 12/10/17 21:01 Dose: 1 mg Sodium Hypochlorite (Dakins Solution 0.25%) 0 ml TOP DAILY [facility] Last Admin: 12/11/17 10:38 Dose: 1 appl - Labs Labs: 12/11/17 06:00 12/11/17 06:00 Attending/Attestation - Attestation I have personally seen and examined this patient.: Yes I have fully participated in the care of the patient.: Yes I have reviewed all pertinent clinical information, including history, physical exam and plan: Yes Notes (Text): 12/11/17 16:56 Attending note; Patient seen and examined with resident. Patient is a 72 year old male with past medical history of diabetes who presented with right foot cellulitis and 5th digit abscess. He was seen by podiatry and is s/p I&D at bedside. Wound culture is growing staphylococcus lugdenensis. Currently on IV Zosyn. ID evaluation appreciated. Xray was negative. Arterial dopplers were relatively negative. MRI results pending. We will follow up with podiatry closely. Hemoglobin A1c is 12.6. He is on levemir and insulin ss. He was counselled on lifestyle and diet modifications and medication compliance. Diabetic nurse education given. Dietary education given. LFTs are elevated. Likely contributing factor is chronic ETOH abuse. Hepatitis panel was negative. Ultrasound of abdomen is ordered. Continue with lisinopril for hypertension. He was counselled on alcohol abstinence. Upon discharge the patient will follow up with PMD of choice. 12/11/17 16:59
[2017-12-12] MEDS: Piperacillin/Tazobact 3.375 gm 100 ML IVPB SCH ×4 (05:36→23:05)
[2017-12-12] MEDS: Insulin Reg-MEDIUM-Coverage SC SCH ×4 (08:18→22:43)
--- NOTE | 2017-12-12 08:46 | US ---
HISTORY: elevated LFT COMPARISON: None. TECHNIQUE: Sonographic evaluation of the abdomen. FINDINGS: LIVER: Measures 15.7 cm. Diffusely increased echogenicity of the liver parenchyma. Consistent with fatty infiltration. No mass. No intrahepatic bile duct dilatation. GALLBLADDER: Unremarkable. No gallstones. COMMON BILE DUCT: Measures 5 mm. No stones. No dilatation. PANCREAS: Unremarkable as visualized. No mass. No ductal dilatation. RIGHT KIDNEY: Measures 10.9cm. Normal echogenicity. No calculus, mass, or hydronephrosis. LEFT KIDNEY: Measures 11.4cm. Normal echogenicity. No calculus, mass, or hydronephrosis. SPLEEN: Normal in size and contour. No mass. AORTA: No aneurysmal dilatation. IVC: Unremarkable. OTHER FINDINGS: None. IMPRESSION: Fatty infiltration of the liver. Otherwise unremarkable.
--- NOTE | 2017-12-12 10:08 | MRI ---
PROCEDURE: MRI of the right foot without contrast HISTORY: r/o osteo COMPARISON: TECHNIQUE: MRI of the right foot was performed in multiple planes using multiple pulse sequences. FINDINGS: There is subcutaneous edema and swelling as well as marrow edema in the 5th toe. The marrow edema involves the middle and distal phalanx. The 5th metatarsal is unremarkable. The remaining toes are unremarkable. There is a small amount of subcutaneous edema over the dorsum of the foot IMPRESSION: Osteomyelitis of the 5th toe involving the middle and distal phalanx
[2017-12-12] MEDS: Insulin Detemir 100 units/ml Vial (Levemir) SC SCH ×2 (10:24→18:45)
[2017-12-12] MEDS: Dakin's Topical 0.25%-Half Strength (480 ml) TOP SCH (13:24)
--- NOTE | 2017-12-12 14:21 | CP.PCM.PN ---
Subjective - Date & Time of Evaluation Date of Evaluation: 12/12/17 Time of Evaluation: 13:00 - Subjective Subjective: Podiatry Progress Note for Dr. Crow/Dr. Toribio 72M seen at bedside accompanied for necrotic right fifth digit ulceration with cellulitic changes. Patient is sitting comfortably in bed, AAO x 3 and in NAD. Denies any acute overnight events or any new pedal complaints. Denies any current pain to the area. Reports that he is feeling better. Denies any recent N/V/F/C/CP/SOB/D. Objective - Vital Signs/Intake and Output Vital Signs (last 24 hours): Temp Pulse Resp BP Pulse Ox 98.3 F 78 20 140/91 H 96 12/12/17 06:00 12/12/17 10:26 12/12/17 06:00 12/12/17 10:26 12/12/17 06:00 Intake and Output: 12/12/17 12/12/17 06:59 18:59 Intake Total 660 Balance 660 - Medications Medications: Current Medications Acetaminophen (Tylenol 325mg Tab) 650 mg PO Q6 PRN PRN Reason: Pain, moderate (4-7) Famotidine (Pepcid) 20 mg PO BID [facility] Last Admin: 12/12/17 10:26 Dose: 20 mg Glipizide (Glucotrol) 5 mg PO ACB [facility] Last Admin: 12/12/17 10:26 Dose: 5 mg Heparin Sodium (Porcine) (Heparin) 5,000 units SC Q8H [facility] PRN Reason: Protocol Last Admin: 12/12/17 10:24 Dose: 5,000 units Piperacillin Sod/Tazobactam Sod (Zosyn 3.375 In Ns 100ml) 100 mls @ 200 mls/hr IVPB Q6 [facility] PRN Reason: Protocol Stop: 12/16/17 18:01 Last Admin: 12/12/17 11:28 Dose: 200 mls/hr Insulin Detemir (Levemir) 8 unit SC BID [facility] Last Admin: 12/12/17 10:24 Dose: 8 unit Insulin Human Regular (Humulin R Med) 0 units SC ACHS [facility] PRN Reason: Protocol Last Admin: 12/12/17 11:28 Dose: 8 units Lisinopril (Zestril) 5 mg PO DAILY [facility] Last Admin: 12/12/17 10:26 Dose: 5 mg Lorazepam (Ativan) 1 mg IVP Q4H PRN; Protocol PRN Reason: Symptoms of alcohol withdrawl Last Admin: 12/10/17 21:01 Dose: 1 mg Sodium Hypochlorite (Dakins Solution 0.25%) 0 ml TOP DAILY [facility] Last Admin: 12/12/17 13:24 Dose: 1 appl - Labs Labs: 12/11/17 06:00 12/11/17 06:00 - Constitutional Appears: Well, Non-toxic, No Acute Distress - Extremities Exam Extremities Exam: absent: Calf Tenderness Additional comments: Lower extremity exam: VASC: DP and PT 2/4 bilaterally, CFT < 3 seconds x10 digits, temperature gradient WNL, edema noted to the right 5th digit ORTHO: Minimal pain with palpation to the right 5th digit NEURO: Epicritic and protective sensation grossly diminished but intact b/l DERM: right 5th toe distal plantar wound with fibrous base measuring approximately 1 cm x 1 cm x 0.3 cm. Probes close to periosteum but not bone. Edema continues to improve and only extends to base of toe. Erythema as decreased. No streaking appreciated. No malodor. AROM to all toes and no drainage noted to ulceration. No tunneling or undermining noted - Neurological Exam Neurological Exam: Alert, Awake, Oriented x3 - Psychiatric Exam Psychiatric exam: Normal Affect, Normal Mood Assessment and Plan - Assessment and Plan (Free Text) Assessment: 72M seen at bedside for necrotic right fifth digit ulceration with cellulitic changes, improving Plan: Patient seen and evaluated Plan discussed with attending Dr. Crow Afebrile, absent leukocytosis Wound cx right foot final: Staph Lugdunensis Continue IV abx per ID ESR: 32 R foot xray: Normal R foot radiographs R MRI: Impression: Osteomyelitis of the 5th toe involving the middle and distal phalanx BORA/PVRs: Relatively normal BORA/PVRs at rest Wound dressed with Daikins solution wet to dry, DSD Discussed with patient treatment plans including conservative treatment with bed bug exterminator antibiotics vs surgical intervention of right 5th digit amputation. Patient opts for conservative treatment at this time Abx per ID recommendations, thank you Patient to follow up with Dr. Toribio outpatient. Dr. Crow will transfer care to Dr. Toribio. Podiatry will continue to follow while patient in house
--- NOTE | 2017-12-12 14:25 | CARD ---
APPROVED REPORT EKG Measurement Heart [id number] <Conclusion> Sinus rhythm with premature atrial complexes Right bundle branch block Left anterior fascicular block Bifascicular block Abnormal ECG
--- NOTE | 2017-12-12 17:55 | CP.PCM.PN ---
<Nathan Biggs - Last Filed: 12/12/17 17:48> Subjective - Date & Time of Evaluation Date of Evaluation: 12/12/17 Time of Evaluation: 09:10 - Subjective Subjective: PGY1 Medicine Note for Dr. Lim Patient seen and examined at bedside this morning. No acute events overnight. Patient states his foot is feeling well. He would like to go home as soon as possible. Denies fevers, chills, nausea, vomiting, diarrhea, constipation, chest pain, shortness of breath, abdominal pain. Objective - Vital Signs/Intake and Output Vital Signs (last 24 hours): Temp Pulse Resp BP Pulse Ox 98 F 77 20 160/95 H 100 12/12/17 14:00 12/12/17 14:00 12/12/17 14:00 12/12/17 14:00 12/12/17 14:00 Intake and Output: 12/12/17 12/12/17 06:59 18:59 Intake Total 660 640 Balance 660 640 - Medications Medications: Current Medications Acetaminophen (Tylenol 325mg Tab) 650 mg PO Q6 PRN PRN Reason: Pain, moderate (4-7) Famotidine (Pepcid) 20 mg PO BID [facility] Last Admin: 12/12/17 10:26 Dose: 20 mg Glipizide (Glucotrol) 5 mg PO ACB [facility] Last Admin: 12/12/17 10:26 Dose: 5 mg Heparin Sodium (Porcine) (Heparin) 5,000 units SC Q8H [facility] PRN Reason: Protocol Last Admin: 12/12/17 16:12 Dose: 5,000 units Piperacillin Sod/Tazobactam Sod (Zosyn 3.375 In Ns 100ml) 100 mls @ 200 mls/hr IVPB Q6 [facility] PRN Reason: Protocol Stop: 12/16/17 18:01 Last Admin: 12/12/17 11:28 Dose: 200 mls/hr Insulin Detemir (Levemir) 8 unit SC BID [facility] Last Admin: 12/12/17 10:24 Dose: 8 unit Insulin Human Regular (Humulin R Med) 0 units SC ACHS [facility] PRN Reason: Protocol Last Admin: 12/12/17 11:28 Dose: 8 units Lisinopril (Zestril) 5 mg PO DAILY [facility] Last Admin: 12/12/17 10:26 Dose: 5 mg Lorazepam (Ativan) 1 mg IVP Q4H PRN; Protocol PRN Reason: Symptoms of alcohol withdrawl Last Admin: 12/10/17 21:01 Dose: 1 mg Sodium Hypochlorite (Dakins Solution 0.25%) 0 ml TOP DAILY [facility] Last Admin: 12/12/17 13:24 Dose: 1 appl - Labs Labs: 12/11/17 06:00 12/11/17 06:00 - Constitutional Appears: Non-toxic, No Acute Distress - Head Exam Head Exam: ATRAUMATIC, NORMOCEPHALIC - Eye Exam Eye Exam: EOMI, Normal appearance - ENT Exam ENT Exam: Mucous Membranes Moist - Neck Exam Neck Exam: absent: Lymphadenopathy - Respiratory Exam Respiratory Exam: Clear to Ausculation Bilateral, NORMAL BREATHING PATTERN. absent: Accessory Muscle Use, Rales, Rhonchi, Wheezes, Respiratory Distress - Cardiovascular Exam Cardiovascular Exam: REGULAR RHYTHM, +S1, +S2 - GI/Abdominal Exam GI & Abdominal Exam: Soft. absent: Distended, Firm, Guarding, Rigid, Tenderness - Extremities Exam Extremities Exam: absent: Calf Tenderness, Pedal Edema Additional comments: Dressing on right foot, no erythema noted on mcclendon - Neurological Exam Neurological Exam: Alert, Awake, CN II-XII Intact, Oriented x3 - Psychiatric Exam Psychiatric exam: Normal Affect, Normal Mood - Skin Skin Exam: Dry, Warm Assessment and Plan - Assessment and Plan (Free Text) Assessment: 72 year old male with a past medical history of DM and psoriasis admitted for swelling/possible abscess of 5th digit on right foot & cellulitis of right foot. MRI shows osteomyelitis of the 5th digit. Plan: Right Foot 5th digit blister with cellulitis and osteomyelitis Podiatry consulted, Dr. Crow - help appreciated * Will plan for conservative treatment with antibiotics at this time. * Dr. Crow will transfer care to Dr. Toribio * Patient is to follow up with Dr. Toribio as outpatient ID consulted, Dr. Quijano - emmie appreciated * Will follow up recs for outpatient abx therapy for tx of osteomyelitis * PICC line ordered. s/p I&D on 12/06 - per podiatry note, ~1 cc of sangious purulence drainage expressed Right foot XR - Normal right foot radiographs. MRI right foot - Osteomyelitis of the 5th toe involving the middle and distal phalanx Lower Ext. BORA exam - Relatively normal BORA and PVR examination at rest. Blood Culture - negative at 5 days Wound Culture - Staphylococcus Lugdunensis Urine Culture - negative Dressings per Podiatry Abx per ID * Continue Zosyn Tylenol 650mg PO q6h prn Diabetes Hgb A1c 12.6 Blood Sugars consistently >200 Levemir 8 units SC BID [facility] - [facility]uchecks Community Educator referral Hypertension Lisinopril 5mg PO daily Continue to monitor Diarrhea Cdiff toxin and antigen - cancelled * Diarrhea resolved x 2 days - normal bowel movements. no specimen was collected, order cancelled. Alcohol Abuse Upon admission alc level <10 UDS negative Ativan 1mg IVP q4h prn CIWA protocol Seizure precautions Aspiration precautions Elevated Liver Enzymes AST and ALT elevated Hep panel - negative HIV - negative will continue to monitor abdominal US - Fatty infiltration of the liver. Otherwise unremarkable. Prophylactic Care Pepcid 20mg PO BID Heparin 5,000 units SC q8h Case discussed with Dr. Carina Evans Dian PGY1 <Juan Lim - Last Filed: 12/13/17 15:01> Objective - Vital Signs/Intake and Output Vital Signs (last 24 hours): Temp Pulse Resp BP Pulse Ox 98.3 F 79 18 138/89 95 12/13/17 06:00 12/13/17 06:00 12/13/17 06:00 12/13/17 06:00 12/13/17 06:00 Intake and Output: 12/13/17 12/13/17 06:59 18:59 Intake Total 960 1180 Balance 960 1180 - Medications Medications: Current Medications Acetaminophen (Tylenol 325mg Tab) 650 mg PO Q6 PRN PRN Reason: Pain, moderate (4-7) Famotidine (Pepcid) 20 mg PO BID [facility] Last Admin: 12/13/17 09:53 Dose: 20 mg Glipizide (Glucotrol) 10 mg PO ACB [facility] Heparin Sodium (Porcine) (Heparin) 5,000 units SC Q8H [facility] PRN Reason: Protocol Last Admin: 12/13/17 09:53 Dose: 5,000 units Piperacillin Sod/Tazobactam Sod (Zosyn 3.375 In Ns 100ml) 100 mls @ 200 mls/hr IVPB Q6 [facility] PRN Reason: Protocol Stop: 01/10/18 00:01 Last Admin: 12/13/17 14:05 Dose: 200 mls/hr Insulin Detemir (Levemir) 10 unit SC BID [facility] Last Admin: 12/13/17 09:54 Dose: 10 unit Insulin Human Regular (Humulin R Med) 0 units SC ACHS [facility] PRN Reason: Protocol Last Admin: 12/13/17 12:05 Dose: 5 units Lisinopril (Zestril) 5 mg PO DAILY [facility] Last Admin: 12/13/17 09:53 Dose: 5 mg Lorazepam (Ativan) 1 mg IVP Q4H PRN; Protocol PRN Reason: Symptoms of alcohol withdrawl Last Admin: 12/10/17 21:01 Dose: 1 mg Sodium Hypochlorite (Dakins Solution 0.25%) 0 ml TOP DAILY [facility] Last Admin: 12/12/17 13:24 Dose: 1 appl - Labs Labs: 12/13/17 05:30 12/13/17 05:30 Attending/Attestation - Attestation I have personally seen and examined this patient.: Yes I have fully participated in the care of the patient.: Yes I have reviewed all pertinent clinical information, including history, physical exam and plan: Yes Notes (Text): 12/13/17 14:58 Attending note; Patient seen and examined with resident. Patient is a 72 year old male with past medical history of diabetes who presented with right foot cellulitis and 5th digit abscess. He was seen by podiatry and is s/p I&D at bedside. Wound culture is growing staphylococcus lugdenensis. Currently on IV Zosyn. ID evaluation appreciated. Xray was negative. Arterial dopplers were relatively negative. MRI showed acute osteomyelitis of the Right fifth toe. Case discussed with podiatry in detail. Patient agreed for long-term antibiotics. Will discuss with director case management for outpatient antibiotics arrangement. PICC line requested. Hemoglobin A1c is 12.6. He is on levemir and insulin ss. He was counselled on lifestyle and diet modifications and medication compliance. Diabetic nurse education given. Dietary education given. LFTs are elevated. Likely contributing factor is chronic ETOH abuse. Hepatitis panel was negative. Ultrasound of abdomen showed fatty liver. Complete alcohol cessation is strongly advised. Continue with lisinopril for hypertension. Upon discharge the patient will follow up with PMD Dr. disla.
--- NOTE | 2017-12-12 18:54 | RAD ---
HISTORY: PICC placement COMPARISON: 12/06/2017 FINDINGS: LUNGS: No active pulmonary disease. PLEURA: No significant pleural effusion identified, no pneumothorax apparent. CARDIOVASCULAR: PICC line in satisfactory position inserted via left upper extremity approach. The tip is in the SVC. OSSEOUS STRUCTURES: No significant abnormalities. VISUALIZED UPPER ABDOMEN: Normal. OTHER FINDINGS: None. IMPRESSION: No adverse findings, specifically no pneumothorax following PICC line placement.
[2017-12-13] MEDS: Piperacillin/Tazobact 3.375 gm 100 ML IVPB SCH ×4 (05:30→23:07)
[2017-12-13 05:47] LABS: BASO # 0.04 K/mm3 (0.0-2.0); BASO % 0.6 % (0.0-3.0); EOS # 0.3 (0.0-0.7); GRAN # 3.19 (1.4-6.5); GRAN % 51.6 % (50.0-68.0); HEMOGLOBIN 12.8 g/dL (14.0-18.0); LYMPH # 1.5 (1.2-3.4); LYMPH % 24.8 % (22.0-35.0); MEAN CELL VOLUME 89.6 fl (80.0-105.0); MEAN CORPUSCULAR HEMOGLOBIN 30.3 pg (25.0-35.0); MEAN CORPUSCULAR HGB CONC 33.8 g/dl (31.0-37.0); MEAN PLATELET VOLUME 9.6 fl (7.0-11.0); MONO # 1.2 (0.1-0.6); RBC 4.23 10^6/uL (3.5-6.1); RED CELL DISTRIBUTION WIDTH 12.6 % (11.5-14.5); WHITE BLOOD COUNT 6.2 10^3/ul (4.5-11.0)
[2017-12-13 05:57] LABS: ALBUMIN 3.3 g/dL (3.0-4.8); ALT/SGPT 89 U/L (7-56); AST/SGOT 53 U/L (17-59); BLOOD UREA NITROGEN 9 mg/dL (7-21); CALCIUM 8.4 mg/dL (8.4-10.5); GFR AFRICAN-AMERICAN > 60; GFR NON-AFRICAN AMERICAN > 60
--- NOTE | 2017-12-13 08:35 | PN ---
DATE: 12/12/2017 SUBJECTIVE: Patient is seen in bed, in no acute distress, nontoxic. PHYSICAL EXAMINATION: VITAL SIGNS: Temperature is 98, blood pressure is 140/90, respiratory rate of 20, heart rate of 77. HEENT: Unremarkable. NECK: Supple. LUNGS: Decreased breath sounds. HEART: Normal S1 and S2. ABDOMEN: Soft. LABORATORY DATA: White count of 6.2, hemoglobin of 13, sed rate of 32. Chemistries are reviewed. Creatinine 0.7. LFTs are mildly elevated. C-reactive protein 51. Urinalysis is noted. HIV is negative. Hepatitis profile is negative. Patient has Staphylococcus lugdunensis. The patient's Zosyn has been dropped. ASSESSMENT AND PLAN: A 72-year-old male, seen earlier today with right foot cellulitis with Staphylococcus lugdunensis, currently on Zosyn and the patient with diabetic and psoriasis with MRI of the foot that is consistent with osteomyelitis on the fifth toe. Will need 4-6 weeks of antibiotics. We will repeat CBC, SMA-18, sed rate, C-reactive protein. Staphylococcus lugdunensis is commonly confused with Staphylococcus aureus because of the Staphylococcus lugdunensis clumping factor which reacts with the latex agglutination test used to identify Staphylococcus aureus. Organisms are coagulase-negative species and severity of infection resembles Staphylococcus aureus and is sensitive. The drugs of choice are nafcillin, penicillin, cefazolin or vancomycin. We will chose a temporary regimen to treat for 4 to 6 weeks. Shelton Bennett MD
[2017-12-13] MEDS: Insulin Reg-MEDIUM-Coverage SC SCH ×4 (09:53→23:10)
[2017-12-13] MEDS: Insulin Detemir 100 units/ml Vial (Levemir) SC SCH ×2 (09:54→17:46)
[2017-12-13] MEDS: Dakin's Topical 0.25%-Half Strength (480 ml) TOP SCH (10:00)
--- NOTE | 2017-12-13 18:12 | CP.PCM.PN ---
<Nathan Biggs - Last Filed: 12/13/17 17:52> Subjective - Date & Time of Evaluation Date of Evaluation: 12/13/17 Time of Evaluation: 09:10 - Subjective Subjective: PGY1 Medicine Note for Dr. Lim Patient seen and examined at bedside this morning. No acute events overnight. Patient states that he is experiencing some pain in his right foot. He would like to go home as soon as possible. He is tolerating his diet with no complaints at this time. Denies fevers, chills, nausea, vomiting, diarrhea, constipation, chest pain, shortness of breath, abdominal pain. Objective - Vital Signs/Intake and Output Vital Signs (last 24 hours): Temp Pulse Resp BP Pulse Ox 98.2 F 78 18 133/84 100 12/13/17 14:00 12/13/17 14:00 12/13/17 14:00 12/13/17 14:00 12/13/17 14:00 Intake and Output: 12/13/17 12/13/17 06:59 18:59 Intake Total 960 1180 Balance 960 1180 - Medications Medications: Current Medications Acetaminophen (Tylenol 325mg Tab) 650 mg PO Q6 PRN PRN Reason: Pain, moderate (4-7) Famotidine (Pepcid) 20 mg PO BID [facility] Last Admin: 12/13/17 09:53 Dose: 20 mg Glipizide (Glucotrol) 10 mg PO ACB [facility] Heparin Sodium (Porcine) (Heparin) 5,000 units SC Q8H [facility] PRN Reason: Protocol Last Admin: 12/13/17 09:53 Dose: 5,000 units Piperacillin Sod/Tazobactam Sod (Zosyn 3.375 In Ns 100ml) 100 mls @ 200 mls/hr IVPB Q6 [facility] PRN Reason: Protocol Stop: 01/10/18 00:01 Last Admin: 12/13/17 14:05 Dose: 200 mls/hr Insulin Detemir (Levemir) 10 unit SC BID [facility] Last Admin: 12/13/17 09:54 Dose: 10 unit Insulin Human Regular (Humulin R Med) 0 units SC ACHS [facility] PRN Reason: Protocol Last Admin: 12/13/17 12:05 Dose: 5 units Lisinopril (Zestril) 5 mg PO DAILY [facility] Last Admin: 12/13/17 09:53 Dose: 5 mg Lorazepam (Ativan) 1 mg IVP Q4H PRN; Protocol PRN Reason: Symptoms of alcohol withdrawl Last Admin: 12/10/17 21:01 Dose: 1 mg Sodium Hypochlorite (Dakins Solution 0.25%) 0 ml TOP DAILY [facility] Last Admin: 12/12/17 13:24 Dose: 1 appl - Labs Labs: 12/13/17 05:30 12/13/17 05:30 - Constitutional Appears: Non-toxic, No Acute Distress - Head Exam Head Exam: ATRAUMATIC, NORMOCEPHALIC - Eye Exam Eye Exam: Normal appearance - ENT Exam ENT Exam: Mucous Membranes Moist - Neck Exam Neck Exam: absent: Lymphadenopathy - Respiratory Exam Respiratory Exam: Clear to Ausculation Bilateral, NORMAL BREATHING PATTERN. absent: Accessory Muscle Use, Rales, Rhonchi, Wheezes, Respiratory Distress - Cardiovascular Exam Cardiovascular Exam: REGULAR RHYTHM, +S1, +S2 - GI/Abdominal Exam GI & Abdominal Exam: Soft. absent: Distended, Firm, Guarding, Rigid, Tenderness - Extremities Exam Extremities Exam: absent: Calf Tenderness Additional comments: Dressing in place on right foot. Dressing c/d/i. No erythema up leg. - Neurological Exam Neurological Exam: Alert, Awake, Oriented x3 - Psychiatric Exam Psychiatric exam: Normal Affect, Normal Mood - Skin Skin Exam: Dry, Warm Assessment and Plan - Assessment and Plan (Free Text) Assessment: 72 year old male with a past medical history of DM and psoriasis admitted for swelling/possible abscess of 5th digit on right foot & cellulitis of right foot. MRI shows osteomyelitis of the 5th digit. Plan: Right Foot 5th digit blister with cellulitis and osteomyelitis Podiatry consulted, Dr. Crow - help appreciated * Will plan for conservative treatment with antibiotics at this time. * Dr. Crow will transfer care to Dr. Toribio * Patient is to follow up with Dr. Toribio as outpatient ID consulted, Dr. Quijano - emmie appreciated * Will follow up recs for outpatient abx therapy for tx of osteomyelitis * PICC line placed in Left upper extremity on 12/12. s/p I&D on 12/06 - per podiatry note, ~1 cc of sangious purulence drainage expressed Right foot XR - Normal right foot radiographs. MRI right foot - Osteomyelitis of the 5th toe involving the middle and distal phalanx Lower Ext. BORA exam - Relatively normal BORA and PVR examination at rest. Blood Culture - negative at 5 days Wound Culture - Staphylococcus Lugdunensis Urine Culture - negative Dressings per Podiatry Abx per ID * Continue Zosyn * Patient to be discharged on Rocephin 2gm IV daily for 4-6 weeks. Tylenol 650mg PO q6h prn Diabetes Hgb A1c 12.6 Blood Sugars consistently >200 Levemir 8 units SC BID --> increased to 10 units SC BID [facility] Bingo Worker referral Hypertension Lisinopril 5mg PO daily Continue to monitor Alcohol Abuse Upon admission alc level <10 UDS negative Ativan 1mg IVP q4h prn [facility] protocol Seizure precautions Aspiration precautions Elevated Liver Enzymes AST and ALT elevated - improving Hep panel - negative HIV - negative will continue to monitor abdominal US - Fatty infiltration of the liver. Otherwise unremarkable. Prophylactic Care Pepcid 20mg PO BID Heparin 5,000 units SC q8h DISPO - Patient is pending approval from insurance company for IV antibiotics. Patient is to come to [facility] to have daily infusions of antibiotics for duration of 4-6 weeks. Patient to CBC, CMP, ESR and CRP drawn weekly during treatment at infusion center. Patient is to be discharged once IV antibiotics are approved. Hopeful discharge tomorrow. Case discussed with Dr. Carina Evans Dian PGY1 <Juan Lim - Last Filed: 12/14/17 15:54> Objective - Vital Signs/Intake and Output Vital Signs (last 24 hours): Temp Pulse Resp BP Pulse Ox 98 F 77 20 115/70 95 12/14/17 14:00 12/14/17 14:00 12/14/17 14:00 12/14/17 14:00 12/14/17 14:00 Intake and Output: 12/14/17 12/14/17 06:59 18:59 Intake Total 960 640 Balance 960 640 - Medications Medications: Current Medications Acetaminophen (Tylenol 325mg Tab) 650 mg PO Q6 PRN PRN Reason: Pain, moderate (4-7) Famotidine (Pepcid) 20 mg PO BID [facility] Last Admin: 12/14/17 09:55 Dose: 20 mg Glipizide (Glucotrol) 10 mg PO ACB [facility] Last Admin: 12/14/17 08:42 Dose: 10 mg Heparin Sodium (Porcine) (Heparin) 5,000 units SC Q8H [facility] PRN Reason: Protocol Last Admin: 12/14/17 15:46 Dose: 5,000 units Piperacillin Sod/Tazobactam Sod (Zosyn 3.375 In Ns 100ml) 100 mls @ 200 mls/hr IVPB Q6 [facility] PRN Reason: Protocol Stop: 01/10/18 00:01 Last Admin: 12/14/17 12:22 Dose: 200 mls/hr Insulin Detemir (Levemir) 10 unit SC BID [facility] Last Admin: 12/14/17 09:56 Dose: 10 unit Insulin Human Regular (Humulin R Med) 0 units SC ACHS [facility] PRN Reason: Protocol Last Admin: 12/14/17 12:22 Dose: 5 units Lisinopril (Zestril) 5 mg PO DAILY [facility] Last Admin: 12/14/17 09:56 Dose: 5 mg Lorazepam (Ativan) 1 mg IVP Q4H PRN; Protocol PRN Reason: Symptoms of alcohol withdrawl Last Admin: 12/10/17 21:01 Dose: 1 mg Sodium Hypochlorite (Dakins Solution 0.25%) 0 ml TOP DAILY [facility] Last Admin: 12/14/17 09:55 Dose: Not Given - Labs Labs: 12/14/17 05:30 12/14/17 05:30 Attending/Attestation - Attestation I have personally seen and examined this patient.: Yes I have fully participated in the care of the patient.: Yes I have reviewed all pertinent clinical information, including history, physical exam and plan: Yes Notes (Text): 12/14/17 15:53 Attending note; Patient seen and examined with resident. Patient is a 72 year old male with past medical history of diabetes who presented with right foot cellulitis and 5th digit abscess. He was seen by podiatry and is s/p I&D at bedside. Wound culture is growing staphylococcus lugdenensis. MRI showed acute osteomyelitis. Status post PICC line placement. Waiting for IV antibiotics approval. Case discussed with vocational case manager in detail. Hemoglobin A1c is 12.6. He is on levemir and insulin ss. He was counselled on lifestyle and diet modifications and medication compliance. Diabetic nurse education given. Dietary education given. chronic ETOH abuse. Hepatitis panel was negative. Ultrasound of abdomen showed fatty liver. Complete alcohol cessation is strongly advised. Continue with lisinopril for hypertension. Upon discharge the patient will follow up with PMD Dr. disla.
--- NOTE | 2017-12-13 21:26 | CP.PCM.PN ---
Subjective - Date & Time of Evaluation Date of Evaluation: 12/13/17 Time of Evaluation: 11:10 - Subjective Subjective: No fevers, not in distress. Objective - Vital Signs/Intake and Output Vital Signs (last 24 hours): Temp Pulse Resp BP Pulse Ox 98.3 F 79 18 138/89 95 12/13/17 06:00 12/13/17 06:00 12/13/17 06:00 12/13/17 06:00 12/13/17 06:00 Intake and Output: 12/13/17 12/13/17 06:59 18:59 Intake Total 960 Balance 960 - Medications Medications: Current Medications Acetaminophen (Tylenol 325mg Tab) 650 mg PO Q6 PRN PRN Reason: Pain, moderate (4-7) Famotidine (Pepcid) 20 mg PO BID [facility] Last Admin: 12/13/17 09:53 Dose: 20 mg Glipizide (Glucotrol) 5 mg PO ACB [facility] Last Admin: 12/13/17 09:53 Dose: 5 mg Heparin Sodium (Porcine) (Heparin) 5,000 units SC Q8H [facility] PRN Reason: Protocol Last Admin: 12/13/17 09:53 Dose: 5,000 units Piperacillin Sod/Tazobactam Sod (Zosyn 3.375 In Ns 100ml) 100 mls @ 200 mls/hr IVPB Q6 [facility] PRN Reason: Protocol Stop: 01/10/18 00:01 Last Admin: 12/13/17 05:30 Dose: 200 mls/hr Insulin Detemir (Levemir) 10 unit SC BID [facility] Last Admin: 12/13/17 09:54 Dose: 10 unit Insulin Human Regular (Humulin R Med) 0 units SC ACHS [facility] PRN Reason: Protocol Last Admin: 12/13/17 09:53 Dose: 3 units Lisinopril (Zestril) 5 mg PO DAILY [facility] Last Admin: 12/13/17 09:53 Dose: 5 mg Lorazepam (Ativan) 1 mg IVP Q4H PRN; Protocol PRN Reason: Symptoms of alcohol withdrawl Last Admin: 12/10/17 21:01 Dose: 1 mg Sodium Hypochlorite (Dakins Solution 0.25%) 0 ml TOP DAILY [facility] Last Admin: 12/12/17 13:24 Dose: 1 appl - Labs Labs: 12/13/17 05:30 12/13/17 05:30 - Constitutional Appears: Chronically Ill - Head Exam Head Exam: NORMAL INSPECTION - Neck Exam Neck Exam: absent: Meningismus - Respiratory Exam Respiratory Exam: Decreased Breath Sounds - Cardiovascular Exam Cardiovascular Exam: +S1, +S2 - GI/Abdominal Exam GI & Abdominal Exam: Soft. absent: Tenderness Assessment and Plan - Assessment and Plan (Free Text) Plan: Assessment right foot cellulitis with 5th toe gangrene with osteomyelitis growing Staph lugdunensis DM psoriasis Plan Continue Zosyn - patient will need 4-6 weeks; recommend Nafcillin or Cefazolin, but may substitute Rocephin with weekly ESR, CRP, CBC, CMP while on antibiotics with outpatient follow up with Podiatry
[2017-12-14] MEDS: Piperacillin/Tazobact 3.375 gm 100 ML IVPB SCH ×4 (05:22→23:10)
[2017-12-14 06:03] LABS: BASO # 0.04 K/mm3 (0.0-2.0); BASO % 0.7 % (0.0-3.0); EOS # 0.3 (0.0-0.7); EOS % 4.5 % (1.5-5.0); GRAN # 2.27 (1.4-6.5); GRAN % 41.1 % (50.0-68.0); HEMOGLOBIN 12.9 g/dL (14.0-18.0); LYMPH # 2.1 (1.2-3.4); LYMPH % 38.5 % (22.0-35.0); MEAN CELL VOLUME 89.9 fl (80.0-105.0); MEAN CORPUSCULAR HEMOGLOBIN 30.3 pg (25.0-35.0); MEAN CORPUSCULAR HGB CONC 33.7 g/dl (31.0-37.0); MEAN PLATELET VOLUME 9.6 fl (7.0-11.0); MONO # 0.8 (0.1-0.6); MONO % 15.2 % (1.0-6.0); RBC 4.26 10^6/uL (3.5-6.1); RED CELL DISTRIBUTION WIDTH 12.7 % (11.5-14.5); WHITE BLOOD COUNT 5.5 10^3/ul (4.5-11.0)
[2017-12-14 06:08] LABS: ALBUMIN 3.5 g/dL (3.0-4.8); ALT/SGPT 90 U/L (7-56); AST/SGOT 55 U/L (17-59); BLOOD UREA NITROGEN 8 mg/dL (7-21); CALCIUM 8.6 mg/dL (8.4-10.5); GFR AFRICAN-AMERICAN > 60; GFR NON-AFRICAN AMERICAN > 60
[2017-12-14] MEDS: Insulin Reg-MEDIUM-Coverage SC SCH ×4 (08:42→22:00)
[2017-12-14] MEDS: Dakin's Topical 0.25%-Half Strength (480 ml) TOP SCH (09:55)
[2017-12-14] MEDS: Insulin Detemir 100 units/ml Vial (Levemir) SC SCH ×2 (09:56→18:51)
--- NOTE | 2017-12-14 10:46 | CP.PCM.PN ---
Subjective - Date & Time of Evaluation Date of Evaluation: 12/14/17 Time of Evaluation: 10:00 - Subjective Subjective: Podiatry Progress Note for Dr. Crow/Dr. Toribio 72M seen at bedside accompanied for necrotic right fifth digit ulceration with cellulitic changes. Patient is sitting comfortably in bed, AAO x 3 and in NAD. Denies any acute overnight events or any new pedal complaints. Denies any current pain to the area. Reports that he is feeling better. Denies any recent N/V/F/C/CP/SOB/D. Objective - Vital Signs/Intake and Output Vital Signs (last 24 hours): Temp Pulse Resp BP Pulse Ox 98.2 F 79 20 154/87 H 94 L 12/14/17 06:00 12/14/17 09:56 12/14/17 06:00 12/14/17 09:56 12/14/17 06:00 Intake and Output: 12/14/17 12/14/17 06:59 18:59 Intake Total 960 Balance 960 - Medications Medications: Current Medications Acetaminophen (Tylenol 325mg Tab) 650 mg PO Q6 PRN PRN Reason: Pain, moderate (4-7) Famotidine (Pepcid) 20 mg PO BID [facility] Last Admin: 12/14/17 09:55 Dose: 20 mg Glipizide (Glucotrol) 10 mg PO ACB [facility] Last Admin: 12/14/17 08:42 Dose: 10 mg Heparin Sodium (Porcine) (Heparin) 5,000 units SC Q8H [facility] PRN Reason: Protocol Last Admin: 12/14/17 08:42 Dose: 5,000 units Piperacillin Sod/Tazobactam Sod (Zosyn 3.375 In Ns 100ml) 100 mls @ 200 mls/hr IVPB Q6 [facility] PRN Reason: Protocol Stop: 01/10/18 00:01 Last Admin: 12/14/17 05:22 Dose: 200 mls/hr Insulin Detemir (Levemir) 10 unit SC BID [facility] Last Admin: 12/14/17 09:56 Dose: 10 unit Insulin Human Regular (Humulin R Med) 0 units SC ACHS [facility] PRN Reason: Protocol Last Admin: 12/14/17 08:42 Dose: 1 units Lisinopril (Zestril) 5 mg PO DAILY [facility] Last Admin: 12/14/17 09:56 Dose: 5 mg Lorazepam (Ativan) 1 mg IVP Q4H PRN; Protocol PRN Reason: Symptoms of alcohol withdrawl Last Admin: 12/10/17 21:01 Dose: 1 mg Sodium Hypochlorite (Dakins Solution 0.25%) 0 ml TOP DAILY [facility] Last Admin: 12/14/17 09:55 Dose: Not Given - Labs Labs: 12/14/17 05:30 12/14/17 05:30 - Constitutional Appears: Well, Non-toxic, No Acute Distress - Extremities Exam Extremities Exam: absent: Calf Tenderness Additional comments: Lower extremity exam: VASC: DP and PT 2/4 bilaterally, CFT < 3 seconds x10 digits, temperature gradient WNL, edema noted to the right 5th digit ORTHO: Minimal pain with palpation to the right 5th digit NEURO: Epicritic and protective sensation grossly diminished but intact b/l DERM: right 5th toe distal plantar wound with fibrous base measuring approximately 1 cm x 1 cm x 0.3 cm. Less necrotic and fibrotic tissue noted. Wound base approximately 50% fibrotic/necrotic and 50% granular tissue. Probes close to periosteum but not bone. Edema continues to improve and only extends to base of toe. Erythema has decreased. No streaking appreciated. No malodor. AROM to all toes and no drainage noted to ulceration. No tunneling or undermining noted - Neurological Exam Neurological Exam: Alert, Awake, Oriented x3 - Psychiatric Exam Psychiatric exam: Normal Affect, Normal Mood Assessment and Plan - Assessment and Plan (Free Text) Assessment: 72M seen at bedside for right fifth digit ulceration with cellulitis, improving , with osteomyelitis Plan: Patient seen and evaluated Plan discussed with attending Dr. Toribio Afebrile, absent leukocytosis R foot xray: Normal R foot radiographs ESR: 32 BORA/PVRs: Relatively normal BORA/PVRs at rest R MRI: Impression: Osteomyelitis of the 5th toe involving the middle and distal phalanx Wound cx right foot final: Staph Lugdunensis Wound dressed with saline solution wet to dry, DSD Discussed with patient treatment plans including conservative treatment with oysterman antibiotics vs surgical intervention of right 5th digit amputation. Patient opts for conservative treatment at this time 4-6 weeks of Abx per ID recommendations for OM, thank you Stable per podiatry standpoint Patient to follow up with Dr. Toribio outpatient. Podiatry will continue to follow while patient in house
--- NOTE | 2017-12-14 15:31 | CP.PCM.PN ---
<Nathan Biggs - Last Filed: 12/14/17 15:24> Subjective - Date & Time of Evaluation Date of Evaluation: 12/14/17 Time of Evaluation: 09:10 - Subjective Subjective: PGY1 Medicine Note for Dr. Lim Patient seen and examined at bedside this morning. No acute events overnight. Patient is frustrated that he has not received authorization yet for his antibiotics. He reports some pain in his foot but he is able to rest comfortably. He is tolerating his diet with no other complaints at this time. Denies fevers, chills, nausea, vomiting, diarrhea, constipation, chest pain, shortness of breath, abdominal pain. Objective - Vital Signs/Intake and Output Vital Signs (last 24 hours): Temp Pulse Resp BP Pulse Ox 98 F 77 20 115/70 95 12/14/17 14:00 12/14/17 14:00 12/14/17 14:00 12/14/17 14:00 12/14/17 14:00 Intake and Output: 12/14/17 12/14/17 06:59 18:59 Intake Total 960 640 Balance 960 640 - Medications Medications: Current Medications Acetaminophen (Tylenol 325mg Tab) 650 mg PO Q6 PRN PRN Reason: Pain, moderate (4-7) Famotidine (Pepcid) 20 mg PO BID [facility] Last Admin: 12/14/17 09:55 Dose: 20 mg Glipizide (Glucotrol) 10 mg PO ACB [facility] Last Admin: 12/14/17 08:42 Dose: 10 mg Heparin Sodium (Porcine) (Heparin) 5,000 units SC Q8H [facility] PRN Reason: Protocol Last Admin: 12/14/17 08:42 Dose: 5,000 units Piperacillin Sod/Tazobactam Sod (Zosyn 3.375 In Ns 100ml) 100 mls @ 200 mls/hr IVPB Q6 [facility] PRN Reason: Protocol Stop: 01/10/18 00:01 Last Admin: 12/14/17 12:22 Dose: 200 mls/hr Insulin Detemir (Levemir) 10 unit SC BID [facility] Last Admin: 12/14/17 09:56 Dose: 10 unit Insulin Human Regular (Humulin R Med) 0 units SC ACHS [facility] PRN Reason: Protocol Last Admin: 05/31/18 12:22 Dose: 5 units Lisinopril (Zestril) 5 mg PO DAILY [facility] Last Admin: 12/14/17 09:56 Dose: 5 mg Lorazepam (Ativan) 1 mg IVP Q4H PRN; Protocol PRN Reason: Symptoms of alcohol withdrawl Last Admin: 12/10/17 21:01 Dose: 1 mg Sodium Hypochlorite (Dakins Solution 0.25%) 0 ml TOP DAILY [facility] Last Admin: 12/14/17 09:55 Dose: Not Given - Labs Labs: 12/14/17 05:30 12/14/17 05:30 - Constitutional Appears: Non-toxic, No Acute Distress - Head Exam Head Exam: ATRAUMATIC, NORMOCEPHALIC - Eye Exam Eye Exam: Normal appearance - ENT Exam ENT Exam: Mucous Membranes Moist - Respiratory Exam Respiratory Exam: NORMAL BREATHING PATTERN. absent: Accessory Muscle Use, Rales , Rhonchi, Wheezes, Respiratory Distress - Cardiovascular Exam Cardiovascular Exam: REGULAR RHYTHM, +S1, +S2 - GI/Abdominal Exam GI & Abdominal Exam: Soft. absent: Distended, Firm, Guarding, Rigid, Tenderness - Extremities Exam Extremities Exam: absent: Calf Tenderness, Pedal Edema Additional comments: dressing on right foot c/d/i, no erythema noted on mcclendon - Neurological Exam Neurological Exam: Alert, Awake, CN II-XII Intact, Oriented x3 - Psychiatric Exam Psychiatric exam: Normal Affect, Normal Mood - Skin Skin Exam: Dry, Warm Assessment and Plan - Assessment and Plan (Free Text) Assessment: 72 year old male with a past medical history of DM and psoriasis admitted for swelling/possible abscess of 5th digit on right foot & cellulitis of right foot. MRI shows osteomyelitis of the 5th digit. Plan: Right Foot 5th digit blister with cellulitis and osteomyelitis Podiatry consulted, Dr. Crow - emmie appreciated * Will plan for conservative treatment with antibiotics at this time. * Dr. Crow will transfer care to Dr. Toribio * Patient is to follow up with Dr. Toribio as outpatient ID consulted, Dr. Quijano - emmie appreciated * Will follow up recs for outpatient abx therapy for tx of osteomyelitis * PICC line placed in Left upper extremity on 12/12. s/p I&D on 12/06 - per podiatry note, ~1 cc of sangious purulence drainage expressed Right foot XR - Normal right foot radiographs. MRI right foot - Osteomyelitis of the 5th toe involving the middle and distal phalanx Lower Ext. BORA exam - Relatively normal BORA and PVR examination at rest. Blood Culture - negative at 5 days Wound Culture - Staphylococcus Lugdunensis Urine Culture - negative Dressings per Podiatry Abx per ID * Continue Zosyn * Patient to be discharged on Rocephin 2gm IV daily for 4-6 weeks. Tylenol 650mg PO q6h prn Diabetes Hgb A1c 12.6 Blood Sugars consistently >200 Levemir 10 units SC BID Started Glipizide 10mg PO ACB [facility] [employer] referral Hypertension Lisinopril 5mg PO daily Continue to monitor Alcohol Abuse Upon admission alc level <10 UDS negative Ativan 1mg IVP q4h prn [facility] protocol Seizure precautions Aspiration precautions Elevated Liver Enzymes AST and ALT elevated - improving Hep panel - negative HIV - negative will continue to monitor abdominal US - Fatty infiltration of the liver. Otherwise unremarkable. Prophylactic Care Pepcid 20mg PO BID Heparin 5,000 units SC q8h DISPO - Patient is pending approval from insurance company for IV antibiotics. Patient is to come to [facility] to have daily infusions of antibiotics for duration of 4-6 weeks. Patient to CBC, CMP, ESR and CRP drawn weekly during treatment at infusion center. Patient still pending insurance authorization. Patient is to be discharged once IV antibiotics are approved. Case discussed with Dr. Carina Martinsn PGY1 <Juan Lim - Last Filed: 12/14/17 15:55> Objective - Vital Signs/Intake and Output Vital Signs (last 24 hours): Temp Pulse Resp BP Pulse Ox 98 F 77 20 115/70 95 12/14/17 14:00 12/14/17 14:00 12/14/17 14:00 12/14/17 14:00 12/14/17 14:00 Intake and Output: 12/14/17 12/14/17 06:59 18:59 Intake Total 960 640 Balance 960 640 - Medications Medications: Current Medications Acetaminophen (Tylenol 325mg Tab) 650 mg PO Q6 PRN PRN Reason: Pain, moderate (4-7) Famotidine (Pepcid) 20 mg PO BID [facility] Last Admin: 12/14/17 09:55 Dose: 20 mg Glipizide (Glucotrol) 10 mg PO ACB [facility] Last Admin: 12/14/17 08:42 Dose: 10 mg Heparin Sodium (Porcine) (Heparin) 5,000 units SC Q8H [facility] PRN Reason: Protocol Last Admin: 12/14/17 15:46 Dose: 5,000 units Piperacillin Sod/Tazobactam Sod (Zosyn 3.375 In Ns 100ml) 100 mls @ 200 mls/hr IVPB Q6 [facility] PRN Reason: Protocol Stop: 01/10/18 00:01 Last Admin: 12/14/17 12:22 Dose: 200 mls/hr Insulin Detemir (Levemir) 10 unit SC BID [facility] Last Admin: 12/14/17 09:56 Dose: 10 unit Insulin Human Regular (Humulin R Med) 0 units SC ACHS [facility] PRN Reason: Protocol Last Admin: 12/14/17 12:22 Dose: 5 units Lisinopril (Zestril) 5 mg PO DAILY [facility] Last Admin: 12/14/17 09:56 Dose: 5 mg Lorazepam (Ativan) 1 mg IVP Q4H PRN; Protocol PRN Reason: Symptoms of alcohol withdrawl Last Admin: 12/10/17 21:01 Dose: 1 mg Sodium Hypochlorite (Dakins Solution 0.25%) 0 ml TOP DAILY [facility] Last Admin: 12/14/17 09:55 Dose: Not Given - Labs Labs: 12/14/17 05:30 12/14/17 05:30 Attending/Attestation - Attestation I have personally seen and examined this patient.: Yes I have fully participated in the care of the patient.: Yes I have reviewed all pertinent clinical information, including history, physical exam and plan: Yes Notes (Text): 12/14/17 15:54 Attending note; Patient seen and examined with resident. Patient is a 72 year old male with past medical history of diabetes who presented with right foot cellulitis and 5th digit abscess. He was seen by podiatry and is s/p I&D at bedside. Wound culture is growing staphylococcus lugdenensis. MRI showed acute osteomyelitis. Status post PICC line placement. Waiting for IV antibiotics approval. Case discussed with correctional casework specialist in detail. Hemoglobin A1c is 12.6. He is on levemir and insulin ss. He was counselled on lifestyle and diet modifications and medication compliance. Diabetic nurse education given. Dietary education given. chronic ETOH abuse. Hepatitis panel was negative. Ultrasound of abdomen showed fatty liver. Complete alcohol cessation is strongly advised. Upon discharge the patient will follow up with PMD Dr. disla.
--- NOTE | 2017-12-14 16:31 | CP.PCM.PN ---
Subjective - Date & Time of Evaluation Date of Evaluation: 12/14/17 Time of Evaluation: 10:55 - Subjective Subjective: Patient wants to go home and is frustrated. No fevers. Objective - Vital Signs/Intake and Output Vital Signs (last 24 hours): Temp Pulse Resp BP Pulse Ox 98.2 F 81 20 155/85 H 94 L 12/14/17 06:00 12/14/17 06:00 12/14/17 06:00 12/14/17 06:00 12/14/17 06:00 Intake and Output: 12/14/17 12/14/17 06:59 18:59 Intake Total 960 Balance 960 - Medications Medications: Current Medications Acetaminophen (Tylenol 325mg Tab) 650 mg PO Q6 PRN PRN Reason: Pain, moderate (4-7) Famotidine (Pepcid) 20 mg PO BID [facility] Last Admin: 12/13/17 17:47 Dose: 20 mg Glipizide (Glucotrol) 10 mg PO ACB [facility] Last Admin: 12/14/17 08:42 Dose: 10 mg Heparin Sodium (Porcine) (Heparin) 5,000 units SC Q8H [facility] PRN Reason: Protocol Last Admin: 12/14/17 08:42 Dose: 5,000 units Piperacillin Sod/Tazobactam Sod (Zosyn 3.375 In Ns 100ml) 100 mls @ 200 mls/hr IVPB Q6 [facility] PRN Reason: Protocol Stop: 01/10/18 00:01 Last Admin: 12/14/17 05:22 Dose: 200 mls/hr Insulin Detemir (Levemir) 10 unit SC BID [facility] Last Admin: 12/13/17 17:46 Dose: 10 unit Insulin Human Regular (Humulin R Med) 0 units SC ACHS [facility] PRN Reason: Protocol Last Admin: 12/14/17 08:42 Dose: 1 units Lisinopril (Zestril) 5 mg PO DAILY [facility] Last Admin: 12/13/17 09:53 Dose: 5 mg Lorazepam (Ativan) 1 mg IVP Q4H PRN; Protocol PRN Reason: Symptoms of alcohol withdrawl Last Admin: 12/10/17 21:01 Dose: 1 mg Sodium Hypochlorite (Dakins Solution 0.25%) 0 ml TOP DAILY [facility] Last Admin: 12/13/17 10:00 Dose: 1 appl - Labs Labs: 12/14/17 05:30 12/14/17 05:30 - Constitutional Appears: Chronically Ill - Head Exam Head Exam: NORMAL INSPECTION - Respiratory Exam Respiratory Exam: Decreased Breath Sounds - Cardiovascular Exam Cardiovascular Exam: +S1, +S2 - GI/Abdominal Exam GI & Abdominal Exam: Soft. absent: Tenderness - Extremities Exam Additional comments: right foot with dressings in place Assessment and Plan - Assessment and Plan (Free Text) Plan: Assessment right foot cellulitis with 5th toe gangrene with osteomyelitis growing Staph lugdunensis DM psoriasis Plan Continue Zosyn - patient will need 4-6 weeks; recommend Nafcillin or Cefazolin, but may substitute Rocephin with weekly ESR, CRP, CBC, CMP while on antibiotics with outpatient follow up with Podiatry
[2017-12-15 08:14] VITALS: O2SAT 98
[2017-12-15] MEDS: Insulin Detemir 100 units/ml Vial (Levemir) SC SCH (10:58)
[2017-12-15] MEDS: Insulin Reg-MEDIUM-Coverage SC SCH (11:00)
[2017-12-15] MEDS: Piperacillin/Tazobact 3.375 gm 100 ML IVPB SCH (11:02)
[2017-12-15 11:39] LABS: BASO # 0.07 K/mm3 (0.0-2.0); BASO % 1.4 % (0.0-3.0); EOS # 0.1 (0.0-0.7); EOS % 2.5 % (1.5-5.0); GRAN # 2.45 (1.4-6.5); GRAN % 50.2 % (50.0-68.0); HEMOGLOBIN 13.1 g/dL (14.0-18.0); LYMPH # 1.6 (1.2-3.4); LYMPH % 32.8 % (22.0-35.0); MEAN CELL VOLUME 89.8 fl (80.0-105.0); MEAN CORPUSCULAR HEMOGLOBIN 30.3 pg (25.0-35.0); MEAN CORPUSCULAR HGB CONC 33.8 g/dl (31.0-37.0); MEAN PLATELET VOLUME 9.5 fl (7.0-11.0); MONO # 0.6 (0.1-0.6); MONO % 13.1 % (1.0-6.0); RBC 4.32 10^6/uL (3.5-6.1); RED CELL DISTRIBUTION WIDTH 12.5 % (11.5-14.5); WHITE BLOOD COUNT 4.9 10^3/ul (4.5-11.0)
[2017-12-15 11:41] LABS: ALB/GLOB RATIO 1.1 (1.1-1.8); ALBUMIN 3.6 g/dL (3.0-4.8); ALT/SGPT 95 U/L (7-56); AST/SGOT 57 U/L (17-59); BLOOD UREA NITROGEN 11 mg/dL (7-21); GFR AFRICAN-AMERICAN > 60; GFR NON-AFRICAN AMERICAN > 60
--- NOTE | 2017-12-15 13:01 | CP.PCM.PN ---
Subjective - Date & Time of Evaluation Date of Evaluation: 12/15/17 Time of Evaluation: 11:20 - Subjective Subjective: Afebrile, not in distress. Objective - Vital Signs/Intake and Output Vital Signs (last 24 hours): Temp Pulse Resp BP Pulse Ox 98.2 F 75 20 154/90 H 98 12/15/17 06:00 12/15/17 06:00 12/15/17 06:00 12/15/17 06:00 12/15/17 06:00 Intake and Output: 12/15/17 12/15/17 06:59 18:59 Intake Total 1640 Balance 1640 - Medications Medications: Current Medications Acetaminophen (Tylenol 325mg Tab) 650 mg PO Q6 PRN PRN Reason: Pain, moderate (4-7) Famotidine (Pepcid) 20 mg PO BID [facility] Last Admin: 12/14/17 17:17 Dose: 20 mg Glipizide (Glucotrol) 10 mg PO ACB [facility] Last Admin: 12/14/17 08:42 Dose: 10 mg Heparin Sodium (Porcine) (Heparin) 5,000 units SC Q8H [facility] PRN Reason: Protocol Last Admin: 12/14/17 23:00 Dose: 5,000 units Piperacillin Sod/Tazobactam Sod (Zosyn 3.375 In Ns 100ml) 100 mls @ 200 mls/hr IVPB Q6 [facility] PRN Reason: Protocol Stop: 01/10/18 00:01 Last Admin: 12/14/17 23:10 Dose: 200 mls/hr Insulin Detemir (Levemir) 10 unit SC BID [facility] Last Admin: 12/14/17 18:51 Dose: 10 unit Insulin Human Regular (Humulin R Med) 0 units SC ACHS [facility] PRN Reason: Protocol Last Admin: 12/14/17 22:00 Dose: Not Given Lisinopril (Zestril) 5 mg PO DAILY [facility] Last Admin: 12/14/17 09:56 Dose: 5 mg Lorazepam (Ativan) 1 mg IVP Q4H PRN; Protocol PRN Reason: Symptoms of alcohol withdrawl Last Admin: 12/10/17 21:01 Dose: 1 mg Sodium Hypochlorite (Dakins Solution 0.25%) 0 ml TOP DAILY [facility] Last Admin: 12/14/17 09:55 Dose: Not Given - Labs Labs: 12/14/17 05:30 12/14/17 05:30 - Constitutional Appears: Chronically Ill - Head Exam Head Exam: NORMAL INSPECTION - Respiratory Exam Respiratory Exam: Decreased Breath Sounds - Cardiovascular Exam Cardiovascular Exam: +S1, +S2 - GI/Abdominal Exam GI & Abdominal Exam: Soft. absent: Tenderness Assessment and Plan - Assessment and Plan (Free Text) Plan: Assessment right foot cellulitis with 5th toe gangrene with osteomyelitis growing Staph lugdunensis DM psoriasis Plan Continue Zosyn - patient will need 4-6 weeks; recommend Nafcillin or Cefazolin, but may substitute Rocephin with weekly ESR, CRP, CBC, CMP while on antibiotics with outpatient follow up with Podiatry
[2017-12-15] MEDS ORDERED: cefTRIAXone 2 GM IN NS 2 GM/100 ML BAG IVPB STA (13:19)
--- NOTE | 2017-12-15 13:43 | CP.PCM.DIS ---
<Nathan Biggs - Last Filed: 12/16/17 19:41> Provider - Provider Date of Admission: 12/06/17 14:40 Attending physician: Juan Lim MD Consults: YUNIER - [facility] Gamaliel Crow Time Spent in preparation of Discharge (in minutes): 60 Diagnosis - Discharge Diagnosis (1) Osteomyelitis Status: Acute Hospital Course - Lab Results Lab Results: Micro Results 12/06/17 20:00 Foot - Right Gram Stain - Final 12/06/17 20:00 Foot - Right Wound Culture - Final Staphylococcus Lugdunensis 12/06/17 15:44 Urine Urine Culture - Final No Growth (<1,000 CFU/ML) Most Recent Lab Values WBC 4.9 10^3/ul (4.5-11.0) 12/15/17 11:22 RBC 4.32 10^6/uL (3.5-6.1) 12/15/17 11:22 Hgb 13.1 g/dL (14.0-18.0) L 12/15/17 11:22 Hct 38.8 % (42.0-52.0) L 12/15/17 11:22 MCV 89.8 fl (80.0-105.0) 12/15/17 11:22 MCH 30.3 pg (25.0-35.0) 12/15/17 11:22 MCHC 33.8 g/dl (31.0-37.0) 12/15/17 11:22 RDW 12.5 % (11.5-14.5) 12/15/17 11:22 Plt Count 230 10^3/uL (120.0-450.0) 12/15/17 11:22 MPV 9.5 fl (7.0-11.0) 12/15/17 11:22 Gran % 50.2 % (50.0-68.0) 12/15/17 11:22 Lymph % (Auto) 32.8 % (22.0-35.0) 12/15/17 11:22 [place] % (Auto) 13.1 % (1.0-6.0) H 12/15/17 11:22 Eos % (Auto) 2.5 % (1.5-5.0) 12/15/17 11:22 Baso % (Auto) 1.4 % (0.0-3.0) 12/15/17 11:22 Gran # 2.45 (1.4-6.5) 12/15/17 11:22 Lymph # (Auto) 1.6 (1.2-3.4) 12/15/17 11:22 [place] # (Auto) 0.6 (0.1-0.6) 12/15/17 11:22 Eos # (Auto) 0.1 (0.0-0.7) 12/15/17 11:22 Baso # (Auto) 0.07 K/mm3 (0.0-2.0) 12/15/17 11:22 Neutrophils % (Manual) 41 % (50.0-70.0) L 12/09/17 07:00 Lymphocytes % (Manual) 38 % (22.0-35.0) H 12/09/17 07:00 Monocytes % (Manual) 15 % (1.0-6.0) H 12/09/17 07:00 Eosinophils % (Manual) 6 % (0.0-3.0) H 12/09/17 07:00 ESR 32 mm/hr (0.00-15.0) H 12/10/17 07:00 pO2 41 mm/Hg (30-55) 12/06/17 13:00 VBG pH 7.30 (7.32-7.43) L 12/06/17 13:00 VBG pCO2 44.0 (40-60) 12/06/17 13:00 VBG HCO3 21.6 mmol/l (21-28) 12/06/17 13:00 VBG Total CO2 23.0 mmol.L (22-28) 12/06/17 13:00 VBG O2 Sat (Calc) 76.1 % (40-65) H 12/06/17 13:00 VBG Base Excess -4.8 mmol/L (0.0-2.0) L 12/06/17 13:00 VBG Potassium 4.8 mmol/L (3.6-5.2) 12/06/17 13:00 Sodium 130.0 mmol/L (132-148) L 12/06/17 13:00 Chloride 96.0 mmol/L (98-107) L 12/06/17 13:00 Glucose 389 mg/dl (75-110) H 12/06/17 13:00 Lactate 1.5 mmol/L (0.7-2.1) 12/06/17 13:00 FiO2 21.0 % 12/06/17 13:00 Sodium 139 mmol/L (132-148) 12/15/17 11:22 Potassium 4.1 mmol/L (3.6-5.0) 12/15/17 11:22 Chloride 101 mmol/L (98-107) 12/15/17 11:22 Carbon Dioxide 29 mmol/L (21-33) 12/15/17 11:22 Anion Gap 12 (10-20) 12/15/17 11:22 BUN 11 mg/dL (7-21) 12/15/17 11:22 Creatinine 0.7 mg/dl (0.8-1.5) L 12/15/17 11:22 Est GFR ( Amer) > 60 12/15/17 11:22 Est GFR (Non-Af Amer) > 60 12/15/17 11:22 POC Glucose (mg/dL) 227 mg/dL (65-110) H 12/15/17 10:57 Random Glucose 284 mg/dL (70-110) H 12/15/17 11:22 Hemoglobin A1c 12.6 % (4.2-6.5) H 12/06/17 13:00 Calcium 9.0 mg/dL (8.4-10.5) 12/15/17 11:22 Phosphorus 2.9 mg/dL (2.5-4.5) 12/15/17 11:22 Magnesium 2.0 mg/dL (1.7-2.2) 12/15/17 11:22 Total Bilirubin 0.3 mg/dL (0.2-1.3) 12/15/17 11:22 AST 57 U/L (17-59) 12/15/17 11:22 ALT 95 U/L (7-56) H 12/15/17 11:22 Alkaline Phosphatase 78 U/L (38-126) 12/15/17 11:22 C-Reactive Protein 51.40 mg/L (0.0-9.9) H 12/08/17 07:00 Total Protein 6.9 g/dL (5.8-8.3) 12/15/17 11:22 Albumin 3.6 g/dL (3.0-4.8) 12/15/17 11:22 Globulin 3.3 gm/dL 12/15/17 11:22 Albumin/Globulin Ratio 1.1 (1.1-1.8) 12/15/17 11:22 Venous Blood Potassium 4.8 mmol/L (3.6-5.2) 12/06/17 13:00 Urine Color Yellow (YELLOW) 12/06/17 15:44 Urine Appearance Clear (CLEAR) 12/06/17 15:44 Urine pH 5.5 (4.7-8.0) 12/06/17 15:44 Ur Specific Barrow 1.020 (1.005-1.035) 12/06/17 15:44 Urine Protein Negative mg/dL (<30 mg/dL) 12/06/17 15:44 Urine Glucose (UA) >=1000 mg/dL (NEGATIVE) 12/06/17 15:44 Urine Ketones >=80 mg/dL (NEGATIVE) 12/06/17 15:44 Urine Blood Negative (NEGATIVE) 12/06/17 15:44 Urine Nitrate Negative (NEGATIVE) 12/06/17 15:44 Urine Bilirubin Negative (NEGATIVE) 12/06/17 15:44 Urine Urobilinogen 0.2 E.U./dL (<1 E.U./dL) 12/06/17 15:44 Ur Leukocyte Esterase Negative Robin/uL (NEGATIVE) 12/06/17 15:44 Urine Opiates Screen Negative (NEGATIVE) 12/06/17 15:44 Urine Methadone Screen Negative (NEGATIVE) 12/06/17 15:44 Ur Barbiturates Screen Negative (NEGATIVE) 12/06/17 15:44 Ur Phencyclidine Scrn Negative (NEGATIVE) 12/06/17 15:44 Ur Amphetamines Screen Negative (NEGATIVE) 12/06/17 15:44 U Benzodiazepines Scrn Negative (NEGATIVE) 12/06/17 15:44 U Oth Cocaine Metabols Negative (NEGATIVE) 12/06/17 15:44 U Cannabinoids Screen Negative (NEGATIVE) 12/06/17 15:44 Alcohol, Quantitative < 10 mg/dL (0-10) 12/06/17 15:17 Hepatitis A IgM Ab Negative (NEGATIVE) 12/08/17 07:00 Hep Bs Antigen Negative (NEGATIVE) 12/08/17 07:00 Hep B Core IgM Ab Negative (NEGATIVE) 12/08/17 07:00 Hepatitis C Antibody Negative (NEGATIVE) 12/08/17 07:00 HIV 1&2 Ag/Ab, 4th Gen Nonreactive (Nonreactive) 12/08/17 07:30 - Hospital Course Hospital Course: As per admission documentation 73M w/PMH sig for DM, psoriasis admitted for Right foot pain/swelling/erythema x 3 days. Pt reports he got a pedicure 5 days prior to evaluation, woke up 3 days ago with sudden pain/swelling/erythema. Pain is intermittent, aggravated by pressure/walking/touch, severe, non radiating. Pt went to PMD who got outpatient work up for osteomyelitis- x-rays are self-reported to be negative. Admits to numbness/tingling of right foot. Denies N & V, F & C, CP, SOB, changes to bowel or bladder habits, other complaints. Hospital Course 72 year old male with a past medical history of DM and psoriasis admitted for swelling/possible abscess of 5th digit on right foot & cellulitis of right foot. Patient was admitted and treated with IV antibiotics. ID was consulted, Dr. Quijano. Podiatry was consulted, Dr. Crow. Right foot XR - Normal right foot radiographs. Lower Ext. BORA exam - Relatively normal BORA and PVR examination at rest. Blood Culture - negative at 5 days Wound Culture - Staphylococcus Lugdunensis MRI right foot 12/09 - Osteomyelitis of the 5th toe involving the middle and distal phalanx A picc line was placed and it was decided that the patient needed to continue antibiotics for 4-6 weeks. Plans were made for him to continue his treatment with Rocephin 2gm daily as an outpatient. His diabetes was also found to be uncontrolled with a Hgb A1c of 12.6. Patient was started on insulin. He was taught how to administer it to himself and educated on a proper diet. He was started on lisinopril due to elevated blood pressures. He was placed on CIWA protocol due to a reported history of alcohol intake but patient never showed signs of withdrawal. His lever enzymes were mildly elevated but slowly improved throughout stay. HIV was negative. abdominal US - Fatty infiltration of the liver. Otherwise unremarkable. Patient was stable throughout his stay and once his insurance approved his outpatient treatment, patient was safely discharged home with the following instructions.. Discharge Instructions Patient is to be discharged home. Patient is to come to [facility] to have daily infusions of antibiotics for duration of 4-6 weeks. Patient to CBC, CMP, ESR and CRP drawn weekly during treatment at infusion center. Patient is to follow up with his primary care physician, Dr. Santhosh Ferrara, within one week. Please call and schedule an appointment at [phone]. - Located at [address], [place] [address] Patient is to follow up with his Aquatic Laborer, Dr. Ayo Toribio, within one week. Please call and schedule an appointment at [phone]. - Located at [address] [place] [address] Patient is to take his medications as directed. Patient is to take his blood sugar 3 times daily and keep a daily log to take with his appointment with Dr. Ferrara. Patient instructed that he needs to avoid tobacco and alcohol. Take care and be well. Please stop at patient registration daily prior to coming up for infusion. infusion start tomorrow MondayDecember 16 3rd floor, report at 3 r nursing station with prescriptions. Keep left upper arm Picc dry and intact at all times, do not wet dressing. This is just a brief summary of the patient's hospital course. For complete detail, please see EMR. Discharge Exam - Head Exam Head Exam: NORMAL INSPECTION - Eye Exam Eye Exam: Normal appearance - ENT Exam ENT Exam: Mucous Membranes Moist - Respiratory Exam Respiratory Exam: Clear to PA & Lateral, NORMAL BREATHING PATTERN, UNREMARKABLE. absent: Accessory Muscle Use, Rales, Rhonchi, Wheezes, Respiratory Distress - Cardiovascular Exam Cardiovascular Exam: REGULAR RHYTHM, +S1, +S2 - GI/Abdominal Exam GI & Abdominal Exam: Soft. absent: Diminished Bowel Sounds, Distended, Firm, Guarding, Rigid, Tenderness - Extremities Exam Extremities exam: normal inspection, pedal pulses present - Neurological Exam Neurological exam: Alert, CN II-XII Intact, Oriented x3 - Psychiatric Exam Psychiatric exam: Normal Affect, Normal Mood - Skin Skin Exam: Dry, Warm Discharge Plan - Discharge Medications Prescriptions: cefTRIAXone 1 gm [Rocephin 1 gram IVPB] 2 gm IVPB DAILY 42 Days bag Insulin Detemir [Levemir] 10 unit SC BID #1 unit Lisinopril [Zestril] 5 mg PO DAILY #30 tab - Follow Up Plan Condition: FAIR Disposition: HOME/ ROUTINE Instructions: Type 2 Diabetes, Alcohol Use - When Is Drinking a Problem?, Dangers of Secondhand Smoke, Preventing Falls, Peripherally-Inserted Central Catheter (DC), Cellulitis (DC), Cellulitis (GEN) Additional Instructions: Patient is to be discharged home. Patient is to come to [facility] to have daily infusions of antibiotics for duration of 4-6 weeks. Patient to CBC, CMP, ESR and CRP drawn weekly during treatment at infusion center. Patient is to follow up with his primary care physician, Dr. Santhosh Ferrara, within one week. Please call and schedule an appointment at [phone]. - Located at [address], [place] [address] Patient is to follow up with his Aquatic Laborer, Dr. Ayo Toribio, within one week. Please call and schedule an appointment at [phone]. - Located at [address] [place] [address] Patient is to take his medications as directed. Patient is to take his blood sugar 3 times daily and keep a daily log to take with his appointment with Dr. Ferrara. Patient instructed that he needs to avoid tobacco and alcohol. Take care and be well. Please stop at patient registration daily prior to coming up for infusion. infusion start tomorrow Monday 2nd 3rd floor, report at 3 r nursing station with prescriptions. Keep left upper arm Picc dry and intact at all times, do not wet dressing. Referrals: Ayo Toribio DPM [Staff Provider] - Santhosh Ferrara MD [Staff Provider] - <Juan Lim - Last Filed: 12/17/17 11:06> Provider - Provider Date of Admission: 12/06/17 14:40 Attending physician: Juan Lim MD Hospital Course - Lab Results Lab Results: Micro Results 12/06/17 20:00 Foot - Right Gram Stain - Final 12/06/17 20:00 Foot - Right Wound Culture - Final Staphylococcus Lugdunensis 12/06/17 15:44 Urine Urine Culture - Final No Growth (<1,000 CFU/ML) Most Recent Lab Values WBC 4.9 10^3/ul (4.5-11.0) 12/15/17 11:22 RBC 4.32 10^6/uL (3.5-6.1) 12/15/17 11:22 Hgb 13.1 g/dL (14.0-18.0) L 12/15/17 11:22 Hct 38.8 % (42.0-52.0) L 12/15/17 11:22 MCV 89.8 fl (80.0-105.0) 12/15/17 11:22 MCH 30.3 pg (25.0-35.0) 12/15/17 11:22 MCHC 33.8 g/dl (31.0-37.0) 12/15/17 11:22 RDW 12.5 % (11.5-14.5) 12/15/17 11:22 Plt Count 230 10^3/uL (120.0-450.0) 12/15/17 11:22 MPV 9.5 fl (7.0-11.0) 12/15/17 11:22 Gran % 50.2 % (50.0-68.0) 12/15/17 11:22 Lymph % (Auto) 32.8 % (22.0-35.0) 12/15/17 11:22 [place] % (Auto) 13.1 % (1.0-6.0) H 12/15/17 11:22 Eos % (Auto) 2.5 % (1.5-5.0) 12/15/17 11:22 Baso % (Auto) 1.4 % (0.0-3.0) 12/15/17 11:22 Gran # 2.45 (1.4-6.5) 12/15/17 11:22 Lymph # (Auto) 1.6 (1.2-3.4) 12/15/17 11:22 [place] # (Auto) 0.6 (0.1-0.6) 12/15/17 11:22 Eos # (Auto) 0.1 (0.0-0.7) 12/15/17 11:22 Baso # (Auto) 0.07 K/mm3 (0.0-2.0) 12/15/17 11:22 Neutrophils % (Manual) 41 % (50.0-70.0) L 12/09/17 07:00 Lymphocytes % (Manual) 38 % (22.0-35.0) H 12/09/17 07:00 Monocytes % (Manual) 15 % (1.0-6.0) H 12/09/17 07:00 Eosinophils % (Manual) 6 % (0.0-3.0) H 12/09/17 07:00 ESR 32 mm/hr (0.00-15.0) H 12/10/17 07:00 pO2 41 mm/Hg (30-55) 12/06/17 13:00 VBG pH 7.30 (7.32-7.43) L 12/06/17 13:00 VBG pCO2 44.0 (40-60) 12/06/17 13:00 VBG HCO3 21.6 mmol/l (21-28) 12/06/17 13:00 VBG Total CO2 23.0 mmol.L (22-28) 12/06/17 13:00 VBG O2 Sat (Calc) 76.1 % (40-65) H 12/06/17 13:00 VBG Base Excess -4.8 mmol/L (0.0-2.0) L 12/06/17 13:00 VBG Potassium 4.8 mmol/L (3.6-5.2) 12/06/17 13:00 Sodium 130.0 mmol/L (132-148) L 12/06/17 13:00 Chloride 96.0 mmol/L (98-107) L 12/06/17 13:00 Glucose 389 mg/dl (75-110) H 12/06/17 13:00 Lactate 1.5 mmol/L (0.7-2.1) 12/06/17 13:00 FiO2 21.0 % 12/06/17 13:00 Sodium 139 mmol/L (132-148) 12/15/17 11:22 Potassium 4.1 mmol/L (3.6-5.0) 12/15/17 11:22 Chloride 101 mmol/L (98-107) 12/15/17 11:22 Carbon Dioxide 29 mmol/L (21-33) 12/15/17 11:22 Anion Gap 12 (10-20) 12/15/17 11:22 BUN 11 mg/dL (7-21) 12/15/17 11:22 Creatinine 0.7 mg/dl (0.8-1.5) L 12/15/17 11:22 Est GFR ( Amer) > 60 12/15/17 11:22 Est GFR (Non-Af Amer) > 60 12/15/17 11:22 POC Glucose (mg/dL) 227 mg/dL (65-110) H 12/15/17 10:57 Random Glucose 284 mg/dL (70-110) H 12/15/17 11:22 Hemoglobin A1c 12.6 % (4.2-6.5) H 12/06/17 13:00 Calcium 9.0 mg/dL (8.4-10.5) 12/15/17 11:22 Phosphorus 2.9 mg/dL (2.5-4.5) 12/15/17 11:22 Magnesium 2.0 mg/dL (1.7-2.2) 12/15/17 11:22 Total Bilirubin 0.3 mg/dL (0.2-1.3) 12/15/17 11:22 AST 57 U/L (17-59) 12/15/17 11:22 ALT 95 U/L (7-56) H 12/15/17 11:22 Alkaline Phosphatase 78 U/L (38-126) 12/15/17 11:22 C-Reactive Protein 51.40 mg/L (0.0-9.9) H 12/08/17 07:00 Total Protein 6.9 g/dL (5.8-8.3) 12/15/17 11:22 Albumin 3.6 g/dL (3.0-4.8) 12/15/17 11:22 Globulin 3.3 gm/dL 12/15/17 11:22 Albumin/Globulin Ratio 1.1 (1.1-1.8) 12/15/17 11:22 Venous Blood Potassium 4.8 mmol/L (3.6-5.2) 12/06/17 13:00 Urine Color Yellow (YELLOW) 12/06/17 15:44 Urine Appearance Clear (CLEAR) 12/06/17 15:44 Urine pH 5.5 (4.7-8.0) 12/06/17 15:44 Ur Specific Barrow 1.020 (1.005-1.035) 12/06/17 15:44 Urine Protein Negative mg/dL (<30 mg/dL) 12/06/17 15:44 Urine Glucose (UA) >=1000 mg/dL (NEGATIVE) 12/06/17 15:44 Urine Ketones >=80 mg/dL (NEGATIVE) 12/06/17 15:44 Urine Blood Negative (NEGATIVE) 12/06/17 15:44 Urine Nitrate Negative (NEGATIVE) 12/06/17 15:44 Urine Bilirubin Negative (NEGATIVE) 12/06/17 15:44 Urine Urobilinogen 0.2 E.U./dL (<1 E.U./dL) 12/06/17 15:44 Ur Leukocyte Esterase Negative Robin/uL (NEGATIVE) 12/06/17 15:44 Urine Opiates Screen Negative (NEGATIVE) 12/06/17 15:44 Urine Methadone Screen Negative (NEGATIVE) 12/06/17 15:44 Ur Barbiturates Screen Negative (NEGATIVE) 12/06/17 15:44 Ur Phencyclidine Scrn Negative (NEGATIVE) 12/06/17 15:44 Ur Amphetamines Screen Negative (NEGATIVE) 12/06/17 15:44 U Benzodiazepines Scrn Negative (NEGATIVE) 12/06/17 15:44 U Oth Cocaine Metabols Negative (NEGATIVE) 12/06/17 15:44 U Cannabinoids Screen Negative (NEGATIVE) 12/06/17 15:44 Alcohol, Quantitative < 10 mg/dL (0-10) 12/06/17 15:17 Hepatitis A IgM Ab Negative (NEGATIVE) 12/08/17 07:00 Hep Bs Antigen Negative (NEGATIVE) 12/08/17 07:00 Hep B Core IgM Ab Negative (NEGATIVE) 12/08/17 07:00 Hepatitis C Antibody Negative (NEGATIVE) 12/08/17 07:00 HIV 1&2 Ag/Ab, 4th Gen Nonreactive (Nonreactive) 12/08/17 07:30 Attending/Attestation - Attestation I have personally seen and examined this patient.: Yes I have fully participated in the care of the patient.: Yes I have reviewed all pertinent clinical information, including history, physical exam and plan: Yes Notes (Text): 12/17/17 11:05 Attending note; Patient seen and examined with resident. Patient is a 72 year old male with past medical history of diabetes who presented with right foot cellulitis and 5th digit abscess. He was seen by podiatry and is s/p I&D at bedside. Wound culture is growing staphylococcus lugdenensis. MRI showed acute osteomyelitis. Status post PICC line placement. IV antibiotics approved. Patient will be discharged home. Patient will come to outpatient infusion center daily for antibiotics therapy. Diabetic education given. Supplies given. Medications delivered by the bedside from pharmacy. Hemoglobin A1c is 12.6. He is on levemir and insulin ss. He was counselled on lifestyle and diet modifications and medication compliance. Diabetic nurse education given. Dietary education given. chronic ETOH abuse. Hepatitis panel was negative. Ultrasound of abdomen showed fatty liver. Complete alcohol cessation is strongly advised. Upon discharge the patient will follow up with PMD Dr. ferrara. Diagnosis; Acute osteomyelitis of the right fifth toe Status post I and D Diabetes Alcohol abuse Noncompliance with follow-up
[2017-12-15 15:16] VITALS: BP 137/81; PULSE 74; RESP 18; TEMP 97.7
--- NOTE | 2017-12-15 16:34 | CP.PCM.PN ---
Subjective - Date & Time of Evaluation Date of Evaluation: 12/15/17 Time of Evaluation: 16:31 - Subjective Subjective: Podiatry Progress Note for Dr. Toribio 72M seen at bedside for right fifth digit ulceration with necrosis and underlying OM. Patient AAO x 3 and NAD, resting comfortably at bedside. Denies any acute overnight events. States that pain is well controlled. Denies any recent N/V/F/C/CP/SOB/D/posterior calf pain when squeezed Objective - Vital Signs/Intake and Output Vital Signs (last 24 hours): Temp Pulse Resp BP Pulse Ox 97.7 F 74 18 137/81 98 12/15/17 14:00 12/15/17 14:00 12/15/17 14:00 12/15/17 14:00 12/15/17 14:00 Intake and Output: 12/15/17 12/15/17 06:59 18:59 Intake Total 1640 2860 Balance 1640 2860 - Labs Labs: 12/15/17 11:22 12/15/17 11:22 - Constitutional Appears: Well, Non-toxic, No Acute Distress - Head Exam Head Exam: ATRAUMATIC, NORMOCEPHALIC - Extremities Exam Additional comments: Lower extremity exam: VASC: DP and PT 2/4 bilaterally, CFT < 3 seconds x10 digits, temperature gradient WNL, edema noted to the right 5th digit; improving ORTHO: Minimal pain with palpation to the right 5th digit NEURO: Epicritic and protective sensation grossly diminished but intact b/l DERM: right 5th toe distal plantar wound with fibrous base measuring approximately 1 cm x 1 cm x 0.3 cm. Minimal area of necrosis noted to distal aspect of wound. Wound base approximately 50% fibrotic/necrotic and 50% granular tissue. Probes close to periosteum but not bone. Edema continues to improve and only extends to base of toe. Erythema has decreased significantly. No streaking appreciated. No malodor. AROM to all toes and no drainage noted to ulceration. No tunneling or undermining noted - Neurological Exam Neurological Exam: Alert, Awake, Oriented x3 - Psychiatric Exam Psychiatric exam: Normal Affect, Normal Mood Assessment and Plan - Assessment and Plan (Free Text) Assessment: 72M seen at bedside for right fifth digit ulceration with necrosis and underlying OM Plan: Patient seen and evaluated Plan discussed with attending Dr. Toribio Afebrile, absent leukocytosis Wound cx 12/06 - Staph Lugdunensis BORA/PVRs: Relatively normal BORA/PVRs at rest R MRI: Impression: Osteomyelitis of the 5th toe involving the middle and distal phalanx Wound dressed with Daikins W2D PICC line placed Pt for DC today Patient to f/u for abx IV infusions [place] [facility] Patient to f/u with Dr. Toribio as outpatient Patient instructed to WB to heel of R foot Patient demonstrated good understanding
== END 2017-12-15 16:28 | disposition home or self-care (01) | DRG 623 ==
LOC: ED 12:09 → ERH 14:40 → 5RNO 16:19
PROVIDERS: ADMIT Internal Medicine; ATTEND Internal Medicine
PROC: 0Y9M3ZX Drainage of Right Foot, Percutaneous Approach, Diagnostic (ICD-10-PCS; 2017-12-06)
PROC: 0JBQ0ZZ Excision of Right Foot Subcutaneous Tissue and Fascia, Open Approach (ICD-10-PCS; principal; 2017-12-10)
PROC: 02HV33Z Insertion of Infusion Device into Superior Vena Cava, Percutaneous Approach (ICD-10-PCS; 2017-12-12)
PROC: B54NZZA Ultrasonography of Left Upper Extremity Veins, Guidance (ICD-10-PCS; 2017-12-12)
DX: E11.69 Type 2 diabetes mellitus with other specified complication (principal); M86.171 Other acute osteomyelitis, right ankle and foot; L03.115 Cellulitis of right lower limb; L02.611 Cutaneous abscess of right foot; E11.52 Type 2 diabetes mellitus with diabetic peripheral angiopathy with gangrene; B95.7 Other staphylococcus as the cause of diseases classified elsewhere; E11.65 Type 2 diabetes mellitus with hyperglycemia; E11.621 Type 2 diabetes mellitus with foot ulcer; L97.519 Non-pressure chronic ulcer of other part of right foot with unspecified severity; E11.40 Type 2 diabetes mellitus with diabetic neuropathy, unspecified; L40.9 Psoriasis, unspecified; I10 Essential (primary) hypertension; Y90.0 Blood alcohol level of less than 20 mg/100 ml; K76.0 Fatty (change of) liver, not elsewhere classified; R19.7 Diarrhea, unspecified; E87.6 Hypokalemia; F10.10 Alcohol abuse, uncomplicated; Z87.891 Personal history of nicotine dependence; Z79.4 Long term (current) use of insulin; Z91.14 Patient's other noncompliance with medication regimen

== ENCOUNTER 2018-02-05 09:35 | Emergency (ER) | payer MEDICARE ==
[2018-02-05 09:41] VITALS: BMI 19.0
[2018-02-05 09:46] VITALS: RESP 18
[2018-02-05] MEDS ORDERED: Sodium Chloride 0.9% 1,000 ML IV STA ×2 (10:02→10:59)
--- NOTE | 2018-02-05 10:09 | ED PDOC ---
Arrival/HPI - General Chief Complaint: Weakness/Neurological Deficit Time Seen by Provider: 02/05/18 09:42 Historian: Patient - History of Present Illness Narrative History of Present Illness (Text): 02/05/18 10:01 Juni Archibald is a 72 year old male, whose past medical history includes diabetes and osteomyelitis, presents to the emergency department for high blood sugar. Patient complains of generalized weakness for the past 3 weeks. He reports seeing his PMD for the same symptoms, who prescribed him medication. Patient notes he has not been compliant with his meds over the past 3 days. Patient notes associated lightheadedness and urinary frequency but denies any fever, chills, body aches, sore throat, cough, shortness of breath, chest pain, nausea, vomiting, diarrhea, abdominal pain, headache, dizziness, or any other complaints at this time. PMD: Dr. Ferrara Time/Duration: > week (3 weeks ) Symptom Onset: Gradual Symptom Course: Unchanged Activities at Onset: Light Context: Home Past Medical History - Provider Review Nursing Documentation Reviewed: Yes - Infectious Disease Hx of Infectious Diseases: None - Cardiac Hx Pacemaker: No - Pulmonary Hx Respiratory Disorders: No - Neurological Hx Neurological Disorder: No - HEENT Hx HEENT Disorder: Yes (eyeglasses) - Endocrine/Metabolic Hx Diabetes Mellitus Type 2: Yes - Hematological/Oncological Hx Cancer: No - Integumentary Hx Dermatological Disorder: Yes Hx Psoriasis: Yes - Musculoskeletal/Rheumatological Hx Falls: No - Gastrointestinal Hx Gastrointestinal Disorders: No - Genitourinary/Gynecological Hx Genitourinary Disorders: Yes (frequency) - Psychiatric Hx Substance Use: No - Surgical History Hx Mastectomy: No - Anesthesia Hx Anesthesia: No Family/Social History - Physician Review Nursing Documentation Reviewed: Yes Family/Social History: Unknown Family HX Smoking Status: Unknown If Ever Smoked Hx Alcohol Use: Yes (occasional beer) Hx Substance Use: No Allergies/Home Meds Allergies/Adverse Reactions: Allergies No Known Allergies Allergy (Verified 12/06/17 12:29) Home Medications: Home Meds Medication Instructions Recorded Confirmed Insulin Detemir [Levemir] 10 unit SC BID 02/05/18 02/05/18 Lisinopril [Zestril] 1 tab PO DAILY 02/05/18 02/05/18 Review of Systems - Physician Review All systems were reviewed & negative as marked: Yes - Review of Systems Constitutional: Other (Generalized weakness). absent: Fevers, Night Sweats ENT: absent: Sore Throat Respiratory: absent: SOB, Cough Cardiovascular: absent: Chest Pain Gastrointestinal: absent: Abdominal Pain, Diarrhea, Nausea, Vomiting Genitourinary Male: Frequency Musculoskeletal: absent: Back Pain, Neck Pain, Myalgias Neurological: Other (lightheadness). absent: Headache, Dizziness Physical Exam Vital Signs Reviewed: Yes Vital Signs Temp Pulse Resp BP Pulse Ox 02/05/18 13:02 77 18 143/84 98 02/05/18 09:45 97.8 F 97 H 18 132/80 99 Temperature: Afebrile Blood Pressure: Normal Pulse: Tachycardic Respiratory Rate: Normal Appearance: Positive for: Well-Appearing, Non-Toxic, Comfortable Pain Distress: None Mental Status: Positive for: Alert and Oriented X 3 Finger Stick Blood Glucose: 327 - Systems Exam Head: Present: Atraumatic, Normocephalic Pupils: Present: PERRL Extroacular Muscles: Present: EOMI Conjunctiva: Present: Normal Mouth: Present: Moist Mucous Membranes Neck: Present: Normal Range of Motion Respiratory/Chest: Present: Clear to Auscultation, Good Air Exchange. No: Respiratory Distress, Accessory Muscle Use Cardiovascular: Present: Regular Rate and Rhythm, Normal S1, S2. No: Murmurs Abdomen: Present: Normal Bowel Sounds. No: Tenderness, Distention, Peritoneal Signs Back: Present: Normal Inspection Upper Extremity: Present: Normal Inspection. No: Cyanosis, Edema Lower Extremity: Present: Normal Inspection. No: Edema Neurological: Present: GCS=15, CN II-XII Intact, Speech Normal Skin: Present: Warm, Dry, Normal Color. No: Rashes Psychiatric: Present: Alert, Oriented x 3, Normal Insight, Normal Concentration Medical Decision Making ED Course and Treatment: 02/05/18 10:04 Impression: 72 year old male with high blood sugar. Patient notes generalized weakness, lightheadedness and urinary frequency. Differential Diagnosis included but are not limited to: Hyperglycemia rule out DKA Plan: -- Chest xray -- EKG -- Labs -- Urinalysis -- IV fluids -- Reassess and disposition Progress Notes: 02/05/18 10:17 EKG shows NSR is 85 BPM with bifascicular block. Interpreted by me. 02/05/18 11:12 Chest X-Ray reviewed, shows no active disease. 02/05/18 13:58 I discussed this patient's care with PMD Dr. Ferrara. We agreed that patient can follow up with him as an outpatient and continue his Metformin 500mg PO BID. First does was given here. Gideon Gee evaluated patient from Social Work and states that patient can follow up with his PMD and arrange any visiting nurses services if needed. - Lab Interpretations Lab Results: 02/05/18 10:30 02/05/18 10:30 Lab Results 02/05/18 10:30: Sodium 132, Chloride 95 L, Potassium 4.2, Carbon Dioxide 20 L, Anion Gap 22 H, BUN 23 H, Creatinine 0.7 L, Est GFR ( Amer) > 60, Est GFR (Non-Af Amer) > 60, Random Glucose 361 H*, Calcium 9.5, Magnesium 1.8, Total Bilirubin 0.6, AST 45, ALT 56, Alkaline Phosphatase 98, Total Protein 7.3 , Albumin 3.9, Globulin 3.4, Albumin/Globulin Ratio 1.2 02/05/18 10:30: pO2 126 H, VBG pH 7.47 H, VBG pCO2 32.0 L, VBG HCO3 23.3, VBG Total CO2 24.3, VBG O2 Sat (Calc) 99.8 H, VBG Base Excess 0.3, VBG Potassium 4.9 , Sodium 131.0 L, Chloride 94.0 L, Glucose 383 H, Lactate 2.1, FiO2 21.0, Venous Blood Potassium 4.9 02/05/18 10:30: WBC 8.6 D, RBC 4.37, Hgb 13.2 L, Hct 37.3 L, MCV 85.4 D, MCH 30.2, MCHC 35.4, RDW 12.0, Plt Count 246, MPV 9.4, Gran % 42.6 L, Lymph % (Auto ) 32.4, Yancey % (Auto) 21.9 H, Eos % (Auto) 2.3, Baso % (Auto) 0.8, Gran # 3.65, Lymph # (Auto) 2.8, Yancey # (Auto) 1.9 H, Eos # (Auto) 0.2, Baso # (Auto) 0.07, Neutrophils % (Manual) 40 L, Lymphocytes % (Manual) 42 H, Monocytes % (Manual) 13 H, Eosinophils % (Manual) 2, Basophils % (Manual) 3 H, Platelet Evaluation Normal 02/05/18 09:49: POC Glucose (mg/dL) 327 H I have reviewed the lab results: Yes - RAD Interpretation Radiology Orders: 02/05/18 10:01 CHEST PORTABLE [RAD] Stat - Medication Orders Current Medication Orders: Discontinued Medications Sodium Chloride (Sodium Chloride 0.9%) 1,000 mls @ 999 mls/hr IV .Q1H1M STA Stop: 02/05/18 11:02 Last Admin: 02/05/18 10:29 Dose: 999 mls/hr eMAR Start Stop Document 02/05/18 10:29 (Rec: 02/05/18 10:30 [id number] Intravenous Solution Start Date 02/05/18 Start Time 10:30 Sodium Chloride (Sodium Chloride 0.9%) 1,000 mls @ 999 mls/hr IV .Q1H1M STA Stop: 02/05/18 11:59 Last Admin: 02/05/18 12:00 Dose: 999 mls/hr eMAR Start Stop Document 02/05/18 12:00 (Rec: 02/05/18 12:00 [id number] Intravenous Solution Start Date 02/05/18 Start Time 12:00 Metformin HCl (Glucophage) 500 mg PO STAT STA Stop: 02/05/18 13:04 Last Admin: 02/05/18 13:43 Dose: 500 mg - Scribe Statement The provider has reviewed the documentation as recorded by the Todd Moraes training under Lourdes Abernathy All medical record entries made by the Todd were at my direction and personally dictated by me. I have reviewed the chart and agree that the record accurately reflects my personal performance of the history, physical exam, medical decision making, and the department course for this patient. I have also personally directed, reviewed, and agree with the discharge instructions and disposition. Disposition/Present on Arrival - Present on Arrival Any Indicators Present on Arrival: Yes History of DVT/PE: No History of Uncontrolled Diabetes: Yes Urinary Catheter: No History of Decub. Ulcer: No History Surgical Site Infection Following: None - Disposition Have Diagnosis and Disposition been Completed?: Yes Diagnosis: Uncontrolled diabetes mellitus Disposition: HOME/ ROUTINE Disposition Time: 14:00 Patient Plan: Discharge Patient Problems: Current Active Problems Problem Status Onset Uncontrolled diabetes mellitus Acute Condition: IMPROVED Discharge Instructions (ExitCare): Type 2 Diabetes Additional Instructions: JUNI ARCHIBALD, thank you for letting us take care of you today. Your provider was Keith Vasquez DO and you were treated for Uncontrolled Diabetes. The emergency medical care you received today was directed at your acute symptoms. If you were prescribed any medication, please fill it and take as directed. It may take several days for your symptoms to resolve. Return to the Emergency Department if your symptoms worsen, do not improve, or if you have any other problems. Please contact your doctor or call one of the physicians/clinics you have been referred to that are listed on the Patient Visit Information form that is included in your discharge packet. Bring any paperwork you were given at discharge with you along with any medications you are taking to your follow up visit. Our treatment cannot replace ongoing medical care by a primary care provider outside of the emergency department. Thank you for allowing the [facility] team to be part of your care today. If you had an X-Ray or CT scan: A Radiologist will review the ED reading if any change in treatment is needed we will contact you. If you had a blood, urine, or wound culture: It will take several days for the results, if any change in treatment is needed we will contact you. If you had an STI test: It will take 48 hours for the results. Please call after 1 week if you have not heard back. Prescriptions: Metformin HCl [Glucophage] 500 mg PO BID #60 tablet Referrals: Santhosh Ferrara MD [Primary Care Provider] - Follow up with primary Forms: Epoch (Hungarian), WORK NOTE
[2018-02-05 10:36] LABS: VENOUS BLOOD GAS BASE EXCESS 0.3 mmol/L (0.0-2.0); VENOUS BLOOD GAS PO2 126 mm/Hg (30-55); VENOUS BLOOD PH 7.47 (7.32-7.43)
[2018-02-05 10:38] LABS: BASO # 0.07 K/mm3 (0.0-2.0); BASO % 0.8 % (0.0-3.0); EOS # 0.2 (0.0-0.7); EOS % 2.3 % (1.5-5.0); GRAN # 3.65 (1.4-6.5); GRAN % 42.6 % (50.0-68.0); HEMOGLOBIN 13.2 g/dL (14.0-18.0); LYMPH # 2.8 (1.2-3.4); LYMPH % 32.4 % (22.0-35.0); MEAN CELL VOLUME 85.4 fl (80.0-105.0); MEAN CORPUSCULAR HEMOGLOBIN 30.2 pg (25.0-35.0); MEAN CORPUSCULAR HGB CONC 35.4 g/dl (31.0-37.0); MEAN PLATELET VOLUME 9.4 fl (7.0-11.0); MONO # 1.9 (0.1-0.6); MONO % 21.9 % (1.0-6.0); PLATELET COUNT 246 10^3/uL (120.0-450.0); RBC 4.37 10^6/uL (3.5-6.1); WHITE BLOOD COUNT 8.6 10^3/ul (4.5-11.0)
[2018-02-05 10:59] LABS: ALB/GLOB RATIO 1.2 (1.1-1.8); ALBUMIN 3.9 g/dL (3.0-4.8); ALT/SGPT 56 U/L (7-56); AST/SGOT 45 U/L (17-59); BLOOD UREA NITROGEN 23 mg/dL (7-21); CALCIUM 9.5 mg/dL (8.4-10.5); GFR AFRICAN-AMERICAN > 60; GFR NON-AFRICAN AMERICAN > 60
--- NOTE | 2018-02-05 10:59 | RAD ---
Date of service: 02/05/2018 HISTORY: cough r/o pna COMPARISON: 12/12/2017 TECHNIQUE: Chest PA and lateral FINDINGS: LUNGS: No active pulmonary disease. PLEURA: No significant pleural effusion identified. No pneumothorax apparent. CARDIOVASCULAR: Normal. OSSEOUS STRUCTURES: No significant abnormalities. VISUALIZED UPPER ABDOMEN: Normal. OTHER FINDINGS: None. IMPRESSION: No active disease.
[2018-02-05 11:10] LABS: BASOPHIL 3 % (0.0-1.0); EOSINOPHIL 2 % (0.0-3.0); LYMPHOCYTE 42 % (22.0-35.0); MONOCYTE 13 % (1.0-6.0); NEUTROPHIL 40 % (50.0-70.0)
[2018-02-05 11:11] LABS: PLATELET ESTIMATE NORMAL (NORMAL)
[2018-02-05 13:02] VITALS: PULSE 77; O2SAT 98
[2018-02-05 14:12] LABS: URINE BILIRUBIN NEGATIVE (NEGATIVE); URINE BLOOD NEGATIVE (NEGATIVE); URINE GLUCOSE (UA) >=1000 mg/dL (NEGATIVE); URINE LEUKOCYTE ESTERASE NEGATIVE Leu/uL (NEGATIVE); URINE PROTEIN NEGATIVE mg/dL (<30 mg/dL); URINE UROBILINOGEN 0.2 E.U./dL (<1 E.U./dL)
[2018-02-05 14:15] LABS: URINE APPEARANCE CLEAR (CLEAR); URINE COLOR YELLOW (YELLOW)
[2018-02-05 14:42] VITALS: BP 138/76; TEMP 98.6
--- NOTE | 2018-02-05 19:24 | CARD ---
APPROVED REPORT Date of service: 02/05/2018 EKG Measurement Heart [id number] <Conclusion> Normal sinus rhythm Right bundle branch block Left anterior fascicular block Bifascicular block Abnormal ECG
== END 2018-02-05 14:25 | disposition home or self-care (01) ==
LOC: ED 09:35
DX: R53.1 Weakness (principal); E11.65 Type 2 diabetes mellitus with hyperglycemia
CPT/HCPCS: 71045; 80053; 81003; 82803; 82948; 83735; 85025; 93005; 99285; J7030